=== PATIENT | male | born 1975 | race Caucasian/White ===

== ENCOUNTER 2018-11-21 21:21 | Emergency (ER) | payer OTHER, MEDICAID, SELFPAY ==
[2018-11-21 21:29] VITALS: BP 108/92; PULSE 85; RESP 14; TEMP 36.6; O2SAT 100; BMI 25.7
[2018-11-21 21:59] LABS: Prothrombin Time 11.3 SECONDS (10.1-12.7)
[2018-11-21 22:01] LABS: PTT Partial Thromboplastin Tim 28 SECONDS (26.4-36.2)
[2018-11-21 22:05] LABS: Alanine Aminotransferase 47 IU/L (21-72); Albumin 4.2 g/dL (3.5-5.0); Albumin Globulin Ratio 1.6 (1.0-2.8); Alkaline Phosphatase 53 U/L (38-126); Aspartate Aminotransferase 21 IU/L (17-59); BUN Creatinine Ratio 14.3 (6-22); Bilirubin Total 0.5 mg/dL (0.2-1.3); Blood Urea Nitrogen 10 mg/dL (9-20); Calcium 8.4 mg/dL (8.4-10.2); Carbon Dioxide 24 mmol/L (22-32); Chloride 108 mmol/L (98-107); Estimated Glomerular Filt Rate > 60.0 mL/min (>60); Globulin 2.7 g/dL (1.7-4.1); Glucose 121 mg/dL (70-100); HEMOLYSIS < 15 (0-50); Potassium 3.6 mmol/L (3.4-5.1); Sodium 142 mmol/L (137-145); Total Protein 6.9 g/dL (6.3-8.2)
[2018-11-21 22:11] VITALS: BP 131/68; PULSE 97; RESP 17; O2SAT 95
--- NOTE | 2018-11-21 22:48 | DI.US.S_ITS ---
PROCEDURE: US PERIPH VENOUS LOW EXTREM RT INDICATIONS: RLE pain, h/o dvt/pe TECHNIQUE: Real-time imaging, as well as color and pulse Doppler interrogation, were performed of the lower extremity deep veins from the inguinal ligament to the popliteal fossa. COMPARISON: None. FINDINGS: The deep veins are normally compressible, and free of intraluminal thrombus. Color and pulse Doppler demonstrate normal phasic intraluminal flow. There is normal augmentation response to distal compression maneuver. IMPRESSION: No evidence of deep vein thrombosis involving the right lower extremity. Dictated by: Ignacia Nolasco MD, PhD on 11/22/2018 at 7:11 Approved by: Ignacia Nolasco MD, PhD on 11/22/2018 at 7:11
[2018-11-21 23:34] VITALS: BP 122/70; PULSE 85; RESP 24; O2SAT 98
[2018-11-22 00:17] VITALS: BP 117/78; PULSE 90; RESP 16; O2SAT 97
--- NOTE | 2018-11-27 08:08 | ED.EXTPRO ---
HPI - Extremity Problem General Chief complaint: Extremity Problem,Nontraumatic Stated complaint: PAIN RT KNEE Time Seen by Provider: 11/21/18 21:48 Source: patient and family Mode of arrival: ambulatory Limitations: no limitations History of Present Illness HPI Narrative: Patient comes to emergency department complaining of right lower extremity pain. He states he has noticed an ache behind his knee and some mild swelling down around his ankle. The patient denies any distinct injury; he states his symptoms have been going on for about 3 days, and that he is concerned because he has a history of DVT and PE in the past. He states the clot was attributed at that time to a long trip, and that he is not aware of any other underlying clotting disorder being found. Patient states that this was a few years back, and that he has not had any issues with clotting since. The patient denies chest pain or shortness of breath. He denies any recent long trips. He is not a smoker. No other complaints at this time. He states the pain is about a 3/10, and walking makes it worse. Nothing improves. Related Data Previous Rx's Medication Instructions Recorded methimazole 5 mg tablet 5 mg PO QDAY #30 tab 05/27/18 diclofenac sodium 75 mg 75 mg PO BIDP PRN #60 ect 09/23/18 tablet,delayed release alprazolam 1 mg tablet 1 - 2 mg PO Q8HP PRN #90 tab 11/19/18 Allergies Allergy/AdvReac Type Severity Reaction Status Date / Time No Known Drug Allergies Allergy Verified 11/21/18 21:29 Review of Systems Constitutional Denies chills, Denies fever(s), Denies lethargy and Denies weakness Eyes Denies change in vision, Denies eye discharge, Denies irritation and Denies loss of vision ENT Ears, Nose, Mouth, and Throat: Denies change in voice, Denies neck pain and Denies sore throat Cardiovascular Denies chest pain, Denies irregular heart rhythm, Denies lightheadedness, Denies palpitations, Denies dyspnea, Denies dyspnea on exertion and Denies orthopnea Respiratory Denies cough, Denies dyspnea, Denies dyspnea on exertion and Denies wheezing Gastrointestinal Gastrointestinal: Denies abdominal pain, Denies change in bowel habits, Denies diarrhea, Denies nausea and Denies vomiting Genitourinary Denies hematuria, Denies flank pain, Denies urinary incontinence and Denies urinary urgency Musculoskeletal Denies neck pain Comments: Right lower extremity pain. Integumentary/Breasts Denies pruritus, Denies erythema, Denies rash and Denies wounds Neurologic Denies confusion, Denies loss of vision and Denies weakness Psychiatric Denies anxiety, Denies confusion, Denies depression, Denies homicidal ideation and Denies suicidal ideation Endocrine Denies palpitations Hematologic/Lymphatic Denies easy bruising Allergic/Immunologic Denies wheezing [facility] Medical History Pulmonary embolism (Acute) DVT (deep venous thrombosis) (Acute) Hyperthyroidism (Chronic 07/31/17) Generalized anxiety disorder (Chronic 04/24/16) Lower back pain (Chronic) History of pulmonary embolism (Inactive 04/24/16) Social History Smoking Status: Current every day smoker Exam Initial Vital Signs Initial Vital Signs: Vital Signs Temperature 97.8 F 11/21/18 21:29 Pulse Rate 85 11/21/18 21:29 Respiratory Rate 14 11/21/18 21:29 Blood Pressure 108/92 H 11/21/18 21:29 Pulse Oximetry 100 11/21/18 21:29 Const General: cooperative and well developed Nutritional Appearance: well nourished Orientation: alert, awake, oriented x3 and not confused [facility] Head: normocephalic and atraumatic Ears: external ears normal Nose: external nose normal and No nasal discharge Face and sinus: face symmetric and No dry mucous membranes Mouth: oral mucosae normal and moist mucous membranes Teeth and gingiva: dentition normal Eyes General: appearance normal, both eyes and all related structures Eyelids: eyelids normal Conjunctivae: conjunctivae normal Sclera: sclerae normal Pupils: PERRL EOM: EOM intact bilaterally Neck Neck: normal visual inspection, trachea midline, No lymphadenopathy, No midline deformity and No JVD Lymphatic: No lymphedema Chest Chest: normal inspection of the chest Resp Effort & Inspection: normal respiratory effort, able to speak in complete sentences, no respiratory distress and no use of accessory muscles Auscultation: clear to auscultation bilaterally, no rales, no rhonchi and no wheezes Cardio Rate: regular rate Rhythm: regular rhythm Heart Sounds: no click, no gallops, no murmurs and no rubs Pulses: normal peripheral pulses GI Inspection: non-distended Palpation: soft, no hepatosplenomegaly, No guarding, No pulsatile mass and No tender Auscultation: normal bowel sounds Back/Spine/Pelvis Back: No CVA tenderness Cervical Spine: cervical ROM normal and No pain with cervical ROM Thoracic/Lumbar Spine: thoracic and lumbar spine normal to inspection Skin General: no rashes or lesions noted, No jaundice and No petechiae Neuro General: alert, oriented x3, gait normal and no focal motor deficits Speech: speech normal Extrem General: full ROM, no pedal edema and calf tenderness (Patient has mild right calf tenderness and moderate tenderness posterior to his right knee. No deformity of the right knee.) Psych Appearance: well kempt Mental Status: mental status grossly normal Attitude: cooperative Thought Content: normal and suicidality Judgment: judgment good Course Course Narrative: Patient was worked up with an ultrasound of his right lower extremity, which was found to be negative. I am not certain what has caused his pain, but we have discussed that no emergent causes been found today. Patient has no signs of cellulitis; his ultrasound is negative and he does not have any chest symptoms. At this point, we have discussed symptomatic management home, as well as usual indications for return. MDM - Extremity (Nontraumatic) Medical Records Attestation: I reviewed the patient's medical records. Lab Data Attestation: I reviewed the patient's lab results. Result diagrams: 11/21/18 21:40 Lab Results 11/21/18 11/21/18 Range/Units 21:40 21:40 PT 11.3 (10.1-12.7) SECONDS INR 1.0 (0.9-1.3) APTT 28 (26.4-36.2) SECONDS Sodium 142 (137-145) mmol/L Potassium 3.6 (3.4-5.1) mmol/L Chloride 108 H (98-107) mmol/L Carbon Dioxide 24 (22-32) mmol/L BUN 10 (9-20) mg/dL Creatinine 0.70 (0.66-1.25) mg/dL Estimated GFR > 60.0 (>60) mL/min BUN/Creatinine Ratio 14.3 (6-22) Glucose 121 H (70-100) mg/dL Calcium 8.4 (8.4-10.2) mg/dL Total Bilirubin 0.5 (0.2-1.3) mg/dL AST 21 (17-59) IU/L ALT 47 (21-72) IU/L Alkaline Phosphatase 53 (38-126) U/L Total Protein 6.9 (6.3-8.2) g/dL Albumin 4.2 (3.5-5.0) g/dL Globulin 2.7 (1.7-4.1) g/dL Albumin/Globulin Ratio 1.6 (1.0-2.8) Imaging Data Venous US: Radiologist's impression: [address] [address] Ultrasound Report Signed Patient: Jaime Amaya [facility]#: [id number] : 1975Acct:[id number] Age/Sex: 42 / MDate of Service: 11/21/18 Loc: ED Accession Number: [id number] Procedure: US periph venous low extrem rt Ordering Provider: Jayleen Cardona MD PROCEDURE: US PERIPH VENOUS LOW EXTREM RT INDICATIONS: RLE pain, h/o dvt/pe TECHNIQUE: Real-time imaging, as well as color and pulse Doppler interrogation, were performed of the lower extremity deep veins from the inguinal ligament to the popliteal fossa. COMPARISON: None. FINDINGS: The deep veins are normally compressible, and free of intraluminal thrombus. Color and pulse Doppler demonstrate normal phasic intraluminal flow. There is normal augmentation response to distal compression maneuver. IMPRESSION: No evidence of deep vein thrombosis involving the right lower extremity. Dictated by: Ignacia Nolasco MD, PhD on 11/22/2018 at 7:11 Approved by: Ignacia Nolasco MD, PhD on 11/22/2018 at 7:11 Discharge Plan Departure Patient Disposition: Home Clinical Impression: Acute leg pain Discharge Date/Time: 11/22/18 00:30 Interventions: ED Discharge Assessment Last Done: 11/22/18 00:27 Instructions: DI for Leg Pain Activity Restrictions/Additional Instructions: Your ultrasound looks good! There is no sign of a blood clot at this time. Prescriptions: No Action methimazole 5 mg tablet 5 mg PO QDAY Qty: 30 RF: 3 diclofenac sodium 75 mg tablet,delayed release (DR/EC) 75 mg PO BIDP PRN (Reason: joint pain) Qty: 60 RF: 3 alprazolam 1 mg tablet 1 - 2 mg PO Q8HP PRN (Reason: anxiety) Qty: 90 RF: 0 Referrals: Baldemar Chirinos MD [Primary Care Provider] -
--- NOTE | 2018-11-27 08:20 | ED_ITS ---
HPI - Extremity Problem General Chief complaint: Extremity Problem,Nontraumatic Stated complaint: PAIN RT KNEE Time Seen by Provider: 11/21/18 21:48 Source: patient and family Mode of arrival: ambulatory Limitations: no limitations History of Present Illness HPI Narrative: Patient comes to emergency department complaining of right lower extremity pain. He states he has noticed an ache behind his knee and some mild swelling down around his ankle. The patient denies any distinct injury; he states his symptoms have been going on for about 3 days, and that he is concerned because he has a history of DVT and PE in the past. He states the clot was attributed at that time to a long trip, and that he is not aware of any other underlying clotting disorder being found. Patient states that this was a few years back, and that he has not had any issues with clotting since. The patient denies chest pain or shortness of breath. He denies any recent long trips. He is not a smoker. No other complaints at this time. He states the pain is about a 3/10, and walking makes it worse. Nothing improves. Related Data Previous Rx's Medication Instructions Recorded methimazole 5 mg tablet 5 mg PO QDAY #30 tab 05/27/18 diclofenac sodium 75 mg 75 mg PO BIDP PRN #60 ect 09/23/18 tablet,delayed release alprazolam 1 mg tablet 1 - 2 mg PO Q8HP PRN #90 tab 11/19/18 Allergies Allergy/AdvReac Type Severity Reaction Status Date / Time No Known Drug Allergies Allergy Verified 11/21/18 21:29 Review of Systems Constitutional Denies chills, Denies fever(s), Denies lethargy and Denies weakness Eyes Denies change in vision, Denies eye discharge, Denies irritation and Denies loss of vision ENT Ears, Nose, Mouth, and Throat: Denies change in voice, Denies neck pain and Denies sore throat Cardiovascular Denies chest pain, Denies irregular heart rhythm, Denies lightheadedness, Denies palpitations, Denies dyspnea, Denies dyspnea on exertion and Denies orthopnea Respiratory Denies cough, Denies dyspnea, Denies dyspnea on exertion and Denies wheezing Gastrointestinal Gastrointestinal: Denies abdominal pain, Denies change in bowel habits, Denies diarrhea, Denies nausea and Denies vomiting Genitourinary Denies hematuria, Denies flank pain, Denies urinary incontinence and Denies urinary urgency Musculoskeletal Denies neck pain Comments: Right lower extremity pain. Integumentary/Breasts Denies pruritus, Denies erythema, Denies rash and Denies wounds Neurologic Denies confusion, Denies loss of vision and Denies weakness Psychiatric Denies anxiety, Denies confusion, Denies depression, Denies homicidal ideation and Denies suicidal ideation Endocrine Denies palpitations Hematologic/Lymphatic Denies easy bruising Allergic/Immunologic Denies wheezing [facility] Medical History Pulmonary embolism (Acute) DVT (deep venous thrombosis) (Acute) Hyperthyroidism (Chronic 07/31/17) Generalized anxiety disorder (Chronic 04/24/16) Lower back pain (Chronic) History of pulmonary embolism (Inactive 04/24/16) Social History Smoking Status: Current every day smoker Exam Initial Vital Signs Initial Vital Signs: Vital Signs Temperature 97.8 F 11/21/18 21:29 Pulse Rate 85 11/21/18 21:29 Respiratory Rate 14 11/21/18 21:29 Blood Pressure 108/92 H 11/21/18 21:29 Pulse Oximetry 100 11/21/18 21:29 Const General: cooperative and well developed Nutritional Appearance: well nourished Orientation: alert, awake, oriented x3 and not confused [facility] Head: normocephalic and atraumatic Ears: external ears normal Nose: external nose normal and No nasal discharge Face and sinus: face symmetric and No dry mucous membranes Mouth: oral mucosae normal and moist mucous membranes Teeth and gingiva: dentition normal Eyes General: appearance normal, both eyes and all related structures Eyelids: eyelids normal Conjunctivae: conjunctivae normal Sclera: sclerae normal Pupils: PERRL EOM: EOM intact bilaterally Neck Neck: normal visual inspection, trachea midline, No lymphadenopathy, No midline deformity and No JVD Lymphatic: No lymphedema Chest Chest: normal inspection of the chest Resp Effort & Inspection: normal respiratory effort, able to speak in complete sentences, no respiratory distress and no use of accessory muscles Auscultation: clear to auscultation bilaterally, no rales, no rhonchi and no wheezes Cardio Rate: regular rate Rhythm: regular rhythm Heart Sounds: no click, no gallops, no murmurs and no rubs Pulses: normal peripheral pulses GI Inspection: non-distended Palpation: soft, no hepatosplenomegaly, No guarding, No pulsatile mass and No tender Auscultation: normal bowel sounds Back/Spine/Pelvis Back: No CVA tenderness Cervical Spine: cervical ROM normal and No pain with cervical ROM Thoracic/Lumbar Spine: thoracic and lumbar spine normal to inspection Skin General: no rashes or lesions noted, No jaundice and No petechiae Neuro General: alert, oriented x3, gait normal and no focal motor deficits Speech: speech normal Extrem General: full ROM, no pedal edema and calf tenderness (Patient has mild right calf tenderness and moderate tenderness posterior to his right knee. No deformity of the right knee.) Psych Appearance: well kempt Mental Status: mental status grossly normal Attitude: cooperative Thought Content: normal and suicidality Judgment: judgment good Course Course Narrative: Patient was worked up with an ultrasound of his right lower extremity, which was found to be negative. I am not certain what has caused his pain, but we have discussed that no emergent causes been found today. Patient has no signs of cellulitis; his ultrasound is negative and he does not have any chest symptoms. At this point, we have discussed symptomatic management home, as well as usual indications for return. MDM - Extremity (Nontraumatic) Medical Records Attestation: I reviewed the patient's medical records. Lab Data Attestation: I reviewed the patient's lab results. Result diagrams: 11/21/18 21:40 Lab Results 11/21/18 11/21/18 Range/Units 21:40 21:40 PT 11.3 (10.1-12.7) SECONDS INR 1.0 (0.9-1.3) APTT 28 (26.4-36.2) SECONDS Sodium 142 (137-145) mmol/L Potassium 3.6 (3.4-5.1) mmol/L Chloride 108 H (98-107) mmol/L Carbon Dioxide 24 (22-32) mmol/L BUN 10 (9-20) mg/dL Creatinine 0.70 (0.66-1.25) mg/dL Estimated GFR > 60.0 (>60) mL/min BUN/Creatinine Ratio 14.3 (6-22) Glucose 121 H (70-100) mg/dL Calcium 8.4 (8.4-10.2) mg/dL Total Bilirubin 0.5 (0.2-1.3) mg/dL AST 21 (17-59) IU/L ALT 47 (21-72) IU/L Alkaline Phosphatase 53 (38-126) U/L Total Protein 6.9 (6.3-8.2) g/dL Albumin 4.2 (3.5-5.0) g/dL Globulin 2.7 (1.7-4.1) g/dL Albumin/Globulin Ratio 1.6 (1.0-2.8) Imaging Data Venous US: Radiologist's impression: [address] [address] Ultrasound Report Signed Patient: Jaime Amaya [employer]#: [id number] : 1975Acct:[id number] Age/Sex: 42 / MDate of Service: 11/21/18 Loc: ED Accession Number: [id number] Procedure: US periph venous low extrem rt Ordering Provider: Jayleen Cardona MD PROCEDURE: US PERIPH VENOUS LOW EXTREM RT INDICATIONS: RLE pain, h/o dvt/pe TECHNIQUE: Real-time imaging, as well as color and pulse Doppler interrogation, were performed of the lower extremity deep veins from the inguinal ligament to the popliteal fossa. COMPARISON: None. FINDINGS: The deep veins are normally compressible, and free of intraluminal thrombus. Color and pulse Doppler demonstrate normal phasic intraluminal flow. There is normal augmentation response to distal compression maneuver. IMPRESSION: No evidence of deep vein thrombosis involving the right lower extremity. Dictated by: Ignacia Nolasco MD, PhD on 11/22/2018 at 7:11 Approved by: Ignacia Nolasco MD, PhD on 11/22/2018 at 7:11 Discharge Plan Departure Patient Disposition: Home Clinical Impression: Acute leg pain Discharge Date/Time: 11/22/18 00:30 Interventions: ED Discharge Assessment Last Done: 11/22/18 00:27 Instructions: DI for Leg Pain Activity Restrictions/Additional Instructions: Your ultrasound looks good! There is no sign of a blood clot at this time. Prescriptions: No Action methimazole 5 mg tablet 5 mg PO QDAY Qty: 30 RF: 3 diclofenac sodium 75 mg tablet,delayed release (DR/EC) 75 mg PO BIDP PRN (Reason: joint pain) Qty: 60 RF: 3 alprazolam 1 mg tablet 1 - 2 mg PO Q8HP PRN (Reason: anxiety) Qty: 90 RF: 0 Referrals: Baldemar Chirinos MD [Primary Care Provider] -
== END 2018-11-22 00:30 | disposition home or self-care (01) ==
PROVIDERS: Emergency Provider Emergency Medicine; Family Provider Internal Medicine; PCP Internal Medicine
DX: M25.561 Pain in right knee (principal)
CPT/HCPCS: 36591; 80053; 85610; 85730; 93005; 93010; 93041; 93971; 99283; 99285

== ENCOUNTER 2019-03-23 17:49 | Emergency (ER) | payer OTHER, MEDICAID, SELFPAY ==
[2019-03-23 17:53] VITALS: PULSE 97; RESP 18; TEMP 36.8; O2SAT 98
--- NOTE | 2019-03-23 17:55 | DI.RAD.S_ITS ---
PROCEDURE: XR RIBS LT MIN 3V W CXR1V INDICATIONS: struck lt side rib on fish tank TECHNIQUE: 3 views of the left ribs were acquired, along with a single view chest. COMPARISON: None. FINDINGS: Surgical changes and devices: None. Bones and chest wall: No fractures or dislocations. No suspicious bony lesions. Overlying soft tissues appear unremarkable. Lungs and pleura: No pleural effusions or pneumothorax. Lungs appear clear. Mediastinum: Mediastinal contours appear normal. Heart size is normal. IMPRESSION: No displaced rib fractures. Dictated by: Ignacia Nolasco MD, PhD on 03/23/2019 at 18:33 Approved by: Ignacia Nolasco MD, PhD on 03/23/2019 at 18:33
--- NOTE | 2019-03-23 18:26 | ED_ITS ---
HPI - Extremity Injury (Upper) General Chief Complaint: Extremity Injury, Upper Stated Complaint: thinks he broke a rib Time Seen by Provider: 03/23/19 18:25 Source: patient Mode of arrival: ambulatory Limitations: no limitations History of Present Illness HPI narrative: Patient is a 43-year-old male who is obviously intoxicated and smells of alcohol here with a family member who is not intoxicated for evaluation of left-sided chest wall pain. Patient states that prior to arrival he fell into a fish tank at home with bruising on the left side. Admits to taking benzodiazepines and also alcohol. No problems breathing. Related Data Previous Rx's Medication Instructions Recorded alprazolam 1 mg tablet 1 - 2 mg PO Q8HP PRN #90 tab 03/10/19 clonazepam 0.5 mg tablet 1 mg PO BID PRN #120 tab 03/21/19 meloxicam 15 mg tablet 15 mg PO DAILY #30 tab 03/21/19 methimazole 5 mg tablet 5 mg PO QDAY #90 tab 03/21/19 Allergies Allergy/AdvReac Type Severity Reaction Status Date / Time No Known Drug Allergies Allergy Verified 03/21/19 10:35 Review of Systems Review of Systems Patient refused to answer many of the review of systems questions Cardiovascular Denies dyspnea Respiratory Denies dyspnea Musculoskeletal Comments: Left-sided rib pain Integumentary/Breasts Comments: Bruise to the left chest wall [facility] Medical History Hyperthyroidism (Chronic 07/31/17) Generalized anxiety disorder (Chronic 04/24/16) Lower back pain (Chronic) History of pulmonary embolism (Inactive 04/24/16) Social History Smoking Status: Current every day smoker Social History Smoking Status: Current every day smoker Exam Initial Vital Signs Initial Vital Signs: Vital Signs Temperature 98.2 F 03/23/19 17:53 Pulse Rate 97 H 03/23/19 17:53 Respiratory Rate 18 03/23/19 17:53 Pulse Oximetry 98 03/23/19 17:53 Const General: cooperative (Minimally cooperative), well developed, well groomed and No acute distress Orientation: alert and awake Chest Other: Linear abrasion to the left lower chest wall Resp Effort & Inspection: normal respiratory effort Auscultation: clear to auscultation bilaterally Cardio Rate: regular rate Rhythm: regular rhythm Skin Other: Abrasion left-sided chest wall Neuro General: alert and awake Speech: speech normal Extrem General: capillary refill normal Course Orders Ordered: ED Orders 03/23/19 17:55 XR ribs LT min 3V w CXR1V Stat Vital Signs - 8 hr 03/23/19 17:53 Temperature 98.2 F Pulse Rate 97 H Respiratory Rate 18 Pulse Oximetry 98 MDM - Extremity Injury (Upper) Imaging Data Chest x-ray: Radiologist's impression: [address] [address] XRay Report Signed Patient: Jaime Amaya [facility]#: [id number] : 1975Acct:[id number] Age/Sex: 43 / MDate of Service: 03/23/19 Loc: ED Accession Number: [id number] Procedure: XR ribs LT min 3V w CXR1V Ordering Provider: Jennifer Silva- PROCEDURE: XR RIBS LT MIN 3V W CXR1V INDICATIONS: struck lt side rib on fish tank TECHNIQUE: 3 views of the left ribs were acquired, along with a single view chest. COMPARISON: None. FINDINGS: Surgical changes and devices: None. Bones and chest wall: No fractures or dislocations. No suspicious bony lesions. Overlying soft tissues appear unremarkable. Lungs and pleura: No pleural effusions or pneumothorax. Lungs appear clear. Mediastinum: Mediastinal contours appear normal. Heart size is normal. IMPRESSION: No displaced rib fractures. Dictated by: Ignacia Nolasco MD, PhD on 03/23/2019 at 18:33 Approved by: Ignacia Nolasco MD, PhD on 03/23/2019 at 18:33 [facility] Narrative Medical decision making narrative: Patient not in any respiratory distress. The x-ray showed no signs of a rib fracture. He does have an abrasion left-sided chest wall. The patient is obviously intoxicated however his family member who was with him is not intoxicated. Informed the patient that he has no rib fracture seen on the x-ray. We did discuss return precautions. Patient stated that he needed something stronger than Motrin or Tylenol however refused to give this to him secondary to his intoxication. We did offer Tylenol Motrin here but the patient refused. He was given return precautions and follow-up instructions. Patient seen upset about this plan Discharge Plan Departure Patient Disposition: Home Clinical Impression: Contusion of rib on left side Qualifiers: Encounter type: initial encounter Qualified Code(s): S20.212A - Contusion of left front wall of thorax, initial encounter Instructions: DI for Rib Contusion Activity Restrictions/Additional Instructions: You can take Tylenol and/or ibuprofen for any discomfort. Contact your primary doctor for follow-up. No driving for the next 24 hours or in the future if you partake in intoxicating substances. Return to the emergency department for any new or worsening symptoms Prescriptions: No Action alprazolam 1 mg tablet 1 - 2 mg PO Q8HP PRN (Reason: anxiety) Qty: 90 RF: 0 meloxicam 15 mg tablet 15 mg PO DAILY Qty: 30 RF: 3 clonazepam 0.5 mg tablet 1 mg PO BID PRN (Reason: anxiety) Qty: 120 RF: 0 methimazole 5 mg tablet 5 mg PO QDAY Qty: 90 RF: 3 Referrals: Baldemar Chirinos MD [Primary Care Provider] -
--- NOTE | 2019-03-23 18:30 | PC.NURSE ---
pt here with his s.o., she states he was drinking today and fell, striking his left side ribs on a fish tank. She contacted EMS, who came to assess pt and cleared him for POV transport. On exam pt is difficult to redirect, smells of ETOH, slurred speech, answering very few questions, states quit asking me fucking questions. c/o lt side rib pain, splinting, no apparent resp distress, denies head/neck pain, declines ice pack, ambulatory with s.o.
== END 2019-03-23 18:53 | disposition home or self-care (01) ==
PROVIDERS: Emergency Provider Emergency Medicine; PCP Internal Medicine
DX: S20.212A Contusion of left front wall of thorax, initial encounter (principal)
CPT/HCPCS: 71101; 99282

== ENCOUNTER 2019-03-24 11:20 | Inpatient (IN) | payer OTHER, MEDICAID, SELFPAY ==
[2019-03-24] VITALS (16 sets, daily range): BP systolic 103–153; BP diastolic 51–97; PULSE 75–138; RESP 15–32; TEMP 36.7–36.9; O2SAT 97–100; BMI 25.0
[2019-03-24] MEDS: SODIUM CHLORIDE 0.9% 1,000 ML 1000 ML IV (12:00)
[2019-03-24 12:19] LABS: Add Manual Diff / Slide Review NO; Basophils Absolute Auto 100 /uL (0-100); Basophils Percent Auto 0.4 % (0-2); Eosinophils Absolute Auto 0 /uL (0-450); Hematocrit 46.1 % (41-53); Hemoglobin 15.5 g/dL (13.5-17.5); Lymphocytes Absolute Auto 1900 /uL (1100-4500); Lymphocytes Percent Auto 13.1 % (25-40); Mean Corpuscular HGB Conc 33.6 % (30-36); Mean Corpuscular Hemoglobin 28.9 PG (26-34); Mean Corpuscular Volume 85.9 fL (80-100); Monocytes Absolute Auto 1100 /uL (0-900); Monocytes Percent Auto 7.9 % (3-14); Neutrophils Absolute Auto 11200 /uL (1500-7000); Neutrophils Percent Auto 78.6 % (50-75); Platelet Count 322 X10^3/uL (150-400); Red Blood Cell Count 5.36 X10^6/uL (4.5-5.9); Red Cell Distribution Width 13.8 % (11.6-14.8); White Blood Cell Count 14.3 X10^3/uL (4.5-11.0)
[2019-03-24 12:20] LABS: Alanine Aminotransferase 23 IU/L (21-72); Albumin 4.7 g/dL (3.5-5.0); Albumin Globulin Ratio 1.6 (1.0-2.8); Alkaline Phosphatase 70 U/L (38-126); Aspartate Aminotransferase 26 IU/L (17-59); Bilirubin Total 1.8 mg/dL (0.2-1.3); Blood Urea Nitrogen 21 mg/dL (9-20); Calcium 8.8 mg/dL (8.4-10.2); Carbon Dioxide 24 mmol/L (22-32); Chloride 101 mmol/L (98-107); Estimated Glomerular Filt Rate > 60.0 mL/min (>60); Ethanol (ETOH) < 10 mg/dL; Globulin 2.9 g/dL (1.7-4.1); Glucose 189 mg/dL (70-100); HEMOLYSIS < 15 (0-50); Lipase 32 U/L (23-300); Sodium 139 mmol/L (137-145); Total Protein 7.6 g/dL (6.3-8.2)
--- NOTE | 2019-03-24 12:29 | ED.TRAUMA ---
HPI - Trauma General Chief Complaint: Trauma Stated Complaint: FELL DOWN STEPS Time Seen by Provider: 03/24/19 12:17 Source: patient and old records reviewed Mode of arrival: ambulatory Limitations: no limitations History of Present Illness HPI narrative: This is a 43-year-old male comes to the emergency department with complaint of left-sided chest pain but also some abdominal pain. Patient states that last night he was drinking alcohol. He fell down the stairs and tumbled down probably half flight of stairs into 100 gal fish tank. He states that the tank was not injured. He was actually seen last night, he was discharged home he did try a dose of his clonazepam at home but was quite uncomfortable. Patient states his pain is particularly on the left chest but he is starting to feel pain all over. He does not take any aspirin or blood thinners. Patient denies any neck or vertebral column pain. He states he has not had any more alcohol since then. He denies a no vomiting, no nausea, no issues with bowel movements or urination. Patient has not noticed any wounds or bruising. Patient states that he shared a 5th of alcohol with for other individuals. States this is not normal for him and he does not normally drink alcohol. He does smoke tobacco. He has had marijuana once a couple weeks ago he denies any other illicit. He does have a history of pulmonary embolism that they think is from travel. Patient also has anxiety. He denies any surgery. He denies any allergies. Related Data Home Medications Medication Instructions Recorded Confirmed methimazole 5 mg PO DAILY 03/24/19 03/24/19 Previous Rx's Medication Instructions Recorded alprazolam 1 mg tablet 1 - 2 mg PO Q8HP PRN #90 tab 03/10/19 clonazepam 0.5 mg tablet 1 mg PO BID PRN #120 tab 03/21/19 meloxicam 15 mg tablet 15 mg PO DAILY #30 tab 03/21/19 Allergies Allergy/AdvReac Type Severity Reaction Status Date / Time No Known Drug Allergies Allergy Verified 03/24/19 11:33 Review of Systems Review of Systems ROS Unobtainable: All systems reviewed & are unremarkable except as noted in HPI and below Constitutional Reports body ache(s) (Hurts all over), Denies chills, Denies fever(s), Denies lethargy and Denies weakness Cardiovascular Reports chest pain, Reports chest pain with activity (With movement), Denies syncope, Denies radiating jaw, neck or arm pain, Denies palpitations, Denies dyspnea and Denies dyspnea on exertion Respiratory Denies chest congestion, Denies cough, Denies hemoptysis, Reports pain on inspiration, Reports pain with cough, Denies dyspnea, Denies dyspnea on exertion and Denies wheezing Gastrointestinal Gastrointestinal: Denies abdominal pain, Denies change in bowel habits, Denies constipation, Denies diarrhea, Denies nausea and Denies vomiting Genitourinary Denies hematuria, Denies flank pain, Denies urinary incontinence and Denies urinary urgency Musculoskeletal Reports back pain (Hurts all over) and Reports myalgias (Hurt all over) Integumentary/Breasts Denies unusual bruising and Denies wounds Neurologic Denies syncope and Denies weakness Endocrine Denies palpitations Allergic/Immunologic Denies wheezing PFSH Medical History Hyperthyroidism (Chronic 07/31/17) Generalized anxiety disorder (Chronic 04/24/16) Lower back pain (Chronic) History of pulmonary embolism (Inactive 04/24/16) Social History Smoking Status: Current every day smoker Social History household members: significant other Smoking Status: Current every day smoker alcohol intake: current Exam Narrative Exam Narrative: GEN: Patient appears in moderate distress. HEAD: No evidence of trauma, no raccoon/Chua sign. NECK: Nontender, painless range of motion, trachea midline Negative for Nexus criteria, there is no line tenderness, distracting injury, altered mental status, neuro deficit, recent EtOH. EYES: PERRLA, EOMI ENT: External inspection normal, trachea is midline, TM's are normal no hemotypanum, Nares are clear, no septal hematoma, no dental or oral injury, airway is normal and with normal occlusion, No bony tenderness RESP: Chest is mildly tender to palpation and has symmetric movement, no ecchymosis, breath sounds are normal no crackles, wheezes or rales, patient has pain with palpation on the left side of the chest. CVS: Heart sounds are normal, no murmur noted, No JVD. S1, S2. Patient is tachycardic. ABG/GI: Tenderness generalized but greater on the left upper quadrant, soft, normal bowel sounds, no distention, no organomegaly, pelvic rock is negative NEURO: Oriented AOx3, neuro is grossly intact, sensation and motor is normal all 4 extremities moving, cranial nerves II through XII are intact, GCS is 15 PSYCH: Normal mood and affect SKIN: Intact, warm and dry, no crepitus and without decubitus, no ecchymosis noted on chest, back, flank or abdomen. BACK: No CVA tenderness, no vertebral tenderness, no step-off's, no crepitus EXT: Atraumatic, hips are nontender, no pedal edema, normal color and temperature, normal range of motion of extremities with normal tendon exam, 2+ pulses in all four extremities Initial Vital Signs Initial Vital Signs: Vital Signs Temperature 98.1 F 03/24/19 11:28 Pulse Rate 138 H 03/24/19 11:28 Respiratory Rate 18 03/24/19 11:28 Blood Pressure 141/97 H 03/24/19 11:28 Pulse Oximetry 100 03/24/19 11:28 Course Orders Ordered: ED Orders 03/24/19 11:36 EKG-12 Lead Stat 03/24/19 12:00 Complete Blood Count AUTO DIFF Stat Comprehensive Metabolic Panel Stat Ethanol (ETOH) Stat Ethanol (ETOH) Stat Lipase Stat Packed Cells Stat Thyroid Stimulating Hormone Stat Type and Screen Stat 03/24/19 13:07 CT chest abd pel w con Stat 03/24/19 17:14 Hematocrit Q4H 03/24/19 17:20 MRSA PCR Urgent 03/24/19 19:01 Hematocrit Q4H 03/24/19 23:01 Hematocrit Q4H 03/25/19 05:00 Basic Metabolic Panel Routine Complete Blood Count AUTO DIFF Routine Magnesium Routine Acetaminophen (Tylenol) 975 mg PO Q6HR [facility] Last Admin: 03/24/19 17:11 Dose: 975 mg Clonazepam (Klonopin) 1 mg PO BID [facility] Last Admin: 03/24/19 16:18 Dose: 1 mg Dextrose (D50w) 25 gm IV PRN PRN PRN Reason: Hypoglycemia Gabapentin (Neurontin) 300 mg PO TID [facility] Last Admin: 03/24/19 17:11 Dose: 300 mg Lactated Ringer's (Lactated Ringers) 1,000 mls @ 100 mls/hr IV CONT [facility] Last Admin: 03/24/19 16:02 Dose: Not Given Insulin Aspart (Novolog Flexpen) 0 unit SUBCUT Q6H [facility]; Protocol Last Admin: 03/24/19 18:10 Dose: Not Given Methocarbamol (Robaxin) 500 mg PO QID [facility] Last Admin: 03/24/19 17:15 Dose: Not Given Admin: 03/24/19 17:11 Dose: 500 mg Morphine Sulfate (Morphine) 4 mg IV Q2HR PRN PRN Reason: Pain, Severe (7-10) Last Admin: 03/24/19 17:15 Dose: 4 mg Morphine Sulfate (Morphine) 2 mg IV Q2HR PRN PRN Reason: Pain, Moderate (4-6) Polyethylene Glycol (Miralax) 17 gm PO BID [facility] Quetiapine Fumarate (Seroquel) 25 mg PO BEDTIME [facility] Discontinued Medications Sodium Chloride (Normal Saline 0.9%) 1,000 mls @ 1,000 mls/hr IV BOLUS ONE Stop: 03/24/19 12:39 Last Infusion: 03/24/19 16:35 Dose: 0 mls/hr Admin: 03/24/19 12:00 Dose: 1,000 mls/hr Lactated Ringer's (Lactated Ringers) 1,000 mls @ 500 mls/hr IV BOLUS ONE Stop: 03/24/19 15:59 Last Admin: 03/24/19 15:15 Dose: 500 mls/hr Insulin Aspart (Novolog Flexpen) 0 unit SUBCUT ACHS [facility]; Protocol Last Admin: 03/24/19 17:09 Dose: Not Given Morphine Sulfate (Morphine) 4 mg IM NOW ONE Stop: 03/24/19 12:33 Last Admin: 03/24/19 12:40 Dose: 4 mg Morphine Sulfate (Morphine) 4 mg IV NOW ONE Stop: 03/24/19 14:01 Last Admin: 03/24/19 15:13 Dose: 4 mg Vital Signs - 8 hr 03/24/19 11:28 03/24/19 12:07 03/24/19 12:12 Temperature 98.1 F Pulse Rate 138 H 115 H 107 H Respiratory Rate 18 32 H 24 Blood Pressure 141/97 H 145/90 H Blood Pressure [Right Arm] 145/90 H Pulse Oximetry 100 97 97 03/24/19 12:30 03/24/19 13:00 03/24/19 13:30 Temperature Pulse Rate 100 H 102 H 101 H Respiratory Rate 27 H 24 24 Blood Pressure Blood Pressure [Right Arm] 137/86 121/86 146/77 H Pulse Oximetry 97 97 100 03/24/19 14:27 03/24/19 14:30 03/24/19 16:10 Temperature 98.4 F Pulse Rate 104 H 106 H 96 H Respiratory Rate 15 16 24 Blood Pressure 145/93 H Blood Pressure [Right Arm] 146/84 H 144/88 H Pulse Oximetry 100 100 99 03/24/19 17:00 03/24/19 18:00 Temperature Pulse Rate 97 H 95 H Respiratory Rate Blood Pressure 139/89 153/81 H Blood Pressure [Right Arm] Pulse Oximetry MDM - Trauma Lab Data Attestation: I reviewed the patient's lab results. Result diagrams: 03/24/19 17:14 03/24/19 12:00 Lab Results 03/24/19 03/24/19 03/24/19 Range/Units 12:00 12:00 12:00 WBC 14.3 H (4.5-11.0) X10^3/uL RBC 5.36 (4.5-5.9) X10^6/uL Hgb 15.5 (13.5-17.5) g/dL Hct 46.1 (41-53) % MCV 85.9 (80-100) fL MCH 28.9 (26-34) PG MCHC 33.6 (30-36) % RDW 13.8 (11.6-14.8) % Plt Count 322 (150-400) X10^3/uL Neut % (Auto) 78.6 H (50-75) % Lymph % (Auto) 13.1 L (25-40) % [place] % (Auto) 7.9 (3-14) % Eos % (Auto) 0.0 L (2-4) % Baso % (Auto) 0.4 (0-2) % Neut # (Auto) 37814 H (1871-0350) /uL Lymph # (Auto) 1900 (3908-9733) /uL [place] # (Auto) 1100 H (0-900) /uL Eos # (Auto) 0 (0-450) /uL Baso # (Auto) 100 (0-100) /uL Sodium 139 (137-145) mmol/L Potassium 4.0 (3.4-5.1) mmol/L Chloride 101 (98-107) mmol/L Carbon Dioxide 24 (22-32) mmol/L BUN 21 H (9-20) mg/dL Creatinine 1.00 (0.66-1.25) mg/dL Estimated GFR > 60.0 (>60) mL/min BUN/Creatinine Ratio 21.0 (6-22) Glucose 189 H (70-100) mg/dL Calcium 8.8 (8.4-10.2) mg/dL Total Bilirubin 1.8 H (0.2-1.3) mg/dL AST 26 (17-59) IU/L ALT 23 (21-72) IU/L Alkaline Phosphatase 70 (38-126) U/L Total Protein 7.6 (6.3-8.2) g/dL Albumin 4.7 (3.5-5.0) g/dL Globulin 2.9 (1.7-4.1) g/dL Albumin/Globulin Ratio 1.6 (1.0-2.8) Lipase 32 (23-300) U/L TSH (0.47-4.68) uIU/mL Ethyl Alcohol < 10 mg/dL Blood Type A Positive Antibody Screen Negative Crossmatch See Detail 03/24/19 03/24/19 03/24/19 Range/Units 12:00 12:00 17:14 WBC (4.5-11.0) X10^3/uL RBC (4.5-5.9) X10^6/uL Hgb (13.5-17.5) g/dL Hct 36.8 L (41-53) % MCV (80-100) fL MCH (26-34) PG MCHC (30-36) % RDW (11.6-14.8) % Plt Count (150-400) X10^3/uL Neut % (Auto) (50-75) % Lymph % (Auto) (25-40) % [place] % (Auto) (3-14) % Eos % (Auto) (2-4) % Baso % (Auto) (0-2) % Neut # (Auto) (5494-6004) /uL Lymph # (Auto) (4438-0158) /uL [place] # (Auto) (0-900) /uL Eos # (Auto) (0-450) /uL Baso # (Auto) (0-100) /uL Sodium (137-145) mmol/L Potassium (3.4-5.1) mmol/L Chloride (98-107) mmol/L Carbon Dioxide (22-32) mmol/L BUN (9-20) mg/dL Creatinine (0.66-1.25) mg/dL Estimated GFR (>60) mL/min BUN/Creatinine Ratio (6-22) Glucose (70-100) mg/dL Calcium (8.4-10.2) mg/dL Total Bilirubin (0.2-1.3) mg/dL AST (17-59) IU/L ALT (21-72) IU/L Alkaline Phosphatase (38-126) U/L Total Protein (6.3-8.2) g/dL Albumin (3.5-5.0) g/dL Globulin (1.7-4.1) g/dL Albumin/Globulin Ratio (1.0-2.8) Lipase (23-300) U/L TSH < 0.02 L (0.47-4.68) uIU/mL Ethyl Alcohol < 10 mg/dL Blood Type Antibody Screen Crossmatch Point of Care Testing Glucose POC [address] chest/abd/pelvis: Radiologist's impression: [facility] Diagn[facility] DATE TYPE STATUS AUTHOR Hx 03/24/19 13:07 Heber Patricio 03/23/19 17:55 Ignacia Nolasco 11/21/18 22:48 Ignacia Nolasco Jerry M 43, [id number] ADM IN, ICU 105 -1 165.1cm 68.2kg BMI: 25.0kg/m? Search Chart ONSET 07/31/17 04/24/16 04/24/16 Today 18:00 Jaime Amaya 43 M [address] [address] [address] Scan Report Signed Patient: MoniqueJaime MMR#: [id number] : 1975Acct:[id number] Age/Sex: 43 / MDate of Service: 03/24/19 Loc: ED Accession Number: [id number] Procedure: CT chest abd pel w con Ordering Provider: Jennifer Beach D.O. PROCEDURE: CT CHEST ABD PEL W CON INDICATIONS: fall down stairs, hit chest onto fish tank, painful TECHNIQUE: After the administration of intravenous contrast, 5 mm thick sections acquired from the lung apices to the symphysis. 2.5 mm thick coronal and sagittal reformats were acquired. Additional 7 mm thick coronal maximum intensity projection (MIP) reformats acquired through the lungs. Optional 10-minute delayed imaging may be performed from the kidneys to the bladder. For radiation dose reduction, the following was used: automated exposure control, adjustment of mA and/or kV according to patient size. COMPARISON: [facility], CT, C-SPINE WITHOUT CONTRAST, 04/21/2017, 16:13. FINDINGS: Image quality: Excellent. CHEST: Lungs: No definite pulmonary contusions or lacerations. There is mild dependent atelectasis bilaterally and linear areas of mild atelectasis or scarring laterally in the right lung base. No pneumothorax or hemothorax. Central and peripheral airways appear patent and normal in caliber. Mediastinum: No mediastinal hematomas. There is a small amount of indistinct soft tissue within the anterior mediastinum, decreased from the prior study, compatible with residual thymic tissue. Heart size is normal. No pericardial effusion. Thoracic aorta and pulmonary arteries demonstrate normal size and enhancement. No mediastinal or hilar adenopathy. Esophagus is normal in caliber. No hiatal hernia. Chest wall: No rib fractures. No subcutaneous emphysema. No axillary or supraclavicular adenopathy. Thyroid gland demonstrates no discrete nodules. ABDOMEN: Solid organs: There is a full-thickness laceration of the spleen which appears to extend to the hilar vessels. There is a nonenhancing peripheral portion of the inferior spleen compatible with devascularization involving approximately 20-25%. An associated perisplenic hematoma is demonstrated with a few small collections adjacent to the hilum. No definite evidence of active arterial extravasation. There is perihepatic blood product likely related to the splenic laceration. This appears lower in density compared to the left upper quadrant free fluid. No discrete hepatic laceration is identified. There is focal fatty infiltration in the anterior left hepatic lobe along the falciform ligament. The gallbladder appears within normal limits without calcified gallstones. There is internal relative hyperattenuation layering in the gallbladder suggestive of biliary sludge. Biliary system is non-dilated. Pancreas enhances normally, without transection. Spleen is normal in size and enhancement, without lacerations. No adrenal hematomas. Both kidneys enhance normally, without hydronephrosis or lacerations. Peritoneum and bowel: There is a moderate amount of hemoperitoneum within the abdomen and pelvis. No free air. Small and large bowel loops demonstrate normal wall thickness and caliber. Nodes and vessels: No retroperitoneal or mesenteric adenopathy. Aorta and inferior vena cava are normal in size and enhancement. Miscellaneous: No ventral hernias. PELVIS: Genitourinary: Bladder wall thickness is normal. Miscellaneous: No inguinal hernias or adenopathy. Bones: Pelvic ring and hip joints appear intact. No vertebral compression fractures. IMPRESSION: 1. Findings compatible with a grade 4 splenic laceration extending to the hilar vessels with associated devascularization of the inferior spleen. There is associated perisplenic hematoma as well as moderate hemoperitoneum. 2. Perihepatic blood product likely related to the splenic laceration. No discrete hepatic laceration identified. 3. No fractures identified. Findings discussed with Dr. Beach on 03/24/19 at 1:44 PM. Dictated by: Heber Patricio M.D. on 03/24/2019 at 13:38 Approved by: Heber Patricio M.D. on 03/24/2019 at 13:52 ECG Data Attestation: I personally reviewed and interpreted this ECG as follows: Interpretation: Sinus tachycardia with a rate of 116 P are 141 QRS of 77 and QTC of 379. No ST elevation or depression. MDM Narrative Medical decision making narrative: Patient comes in with fall down stairs last night, states he was intoxicated he was seen but per patient himself was a difficult patient and made his evaluation difficult. He states that he went home he has continued to have significant pain and returned, imaging shows a grade 4 splenic laceration. Surgery was contacted and Dr. Brewster evaluated the patient in the department. After 1 L of fluids patient's heart rate had improved to 107, he has not been hypotensive. He was given some morphine for pain which was helpful. Plan for admission, bedrest, NPO, if patient has any changes or concerning signs plan for OR for splenectomy. Patient initially was planning to leave the department because he wanted to go to his daughter's graduation, we had a very involved conversation discussing that that would be very dangers and he had a high potential for if he left with this type of injury that he has and patient did agree to stay. Discharge Plan Departure Patient Disposition: Admitted As Inpatient Clinical Impression: Spleen laceration Discharge Date/Time: 03/24/19 16:06 Interventions: ED Discharge Assessment Last Done: 03/24/19 16:06 Admit Date/Time: 03/24/19 14:14 Admit Provider: Evgeny Brewster
--- NOTE | 2019-03-24 12:32 | ED_ITS ---
HPI - Trauma General Chief Complaint: Trauma Stated Complaint: FELL DOWN STEPS Time Seen by Provider: 03/24/19 12:17 Source: patient and old records reviewed Mode of arrival: ambulatory Limitations: no limitations History of Present Illness HPI narrative: This is a 43-year-old male comes to the emergency department with complaint of left-sided chest pain but also some abdominal pain. Patient states that last night he was drinking alcohol. He fell down the stairs and tumbled down probably half flight of stairs into 100 gal fish tank. He states that the tank was not injured. He was actually seen last night, he was discharged home he did try a dose of his clonazepam at home but was quite uncomfortable. Leeann mccrary states his pain is particularly on the left chest but he is starting to feel pain all over. He does not take any aspirin or blood thinners. Patient denies any neck or vertebral column pain. He states he has not had any more alcohol since then. He denies a no vomiting, no nausea, no issues with bowel movements or urination. Patient has not noticed any wounds or bruising. Patient states that he shared a 5th of alcohol with for other individuals. States this is not normal for him and he does not normally drink alcohol. He does smoke tobacco. He has had marijuana once a couple weeks ago he denies any other illicit. He does have a history of pulmonary embolism that they think is from travel. Patient also has anxiety. He denies any surgery. He denies any allergies. Related Data Home Medications Medication Instructions Recorded Confirmed methimazole 5 mg PO DAILY 03/24/19 03/24/19 Previous Rx's Medication Instructions Recorded alprazolam 1 mg tablet 1 - 2 mg PO Q8HP PRN #90 tab 03/10/19 clonazepam 0.5 mg tablet 1 mg PO BID PRN #120 tab 03/21/19 meloxicam 15 mg tablet 15 mg PO DAILY #30 tab 03/21/19 Allergies Allergy/AdvReac Type Severity Reaction Status Date / Time No Known Drug Allergies Allergy Verified 03/24/19 11:33 Review of Systems Review of Systems ROS Unobtainable: All systems reviewed & are unremarkable except as noted in HPI and below Constitutional Reports body ache(s) (Hurts all over), Denies chills, Denies fever(s), Denies lethargy and Denies weakness Cardiovascular Reports chest pain, Reports chest pain with activity (With movement), Denies syncope, Denies radiating jaw, neck or arm pain, Denies palpitations, Denies dyspnea and Denies dyspnea on exertion Respiratory Denies chest congestion, Denies cough, Denies hemoptysis, Reports pain on inspiration, Reports pain with cough, Denies dyspnea, Denies dyspnea on exertion and Denies wheezing Gastrointestinal Gastrointestinal: Denies abdominal pain, Denies change in bowel habits, Denies constipation, Denies diarrhea, Denies nausea and Denies vomiting Genitourinary Denies hematuria, Denies flank pain, Denies urinary incontinence and Denies urinary urgency Musculoskeletal Reports back pain (Hurts all over) and Reports myalgias (Hurt all over) Integumentary/Breasts Denies unusual bruising and Denies wounds Neurologic Denies syncope and Denies weakness Endocrine Denies palpitations Allergic/Immunologic Denies wheezing PFSH Medical History Hyperthyroidism (Chronic 07/31/17) Generalized anxiety disorder (Chronic 04/24/16) Lower back pain (Chronic) History of pulmonary embolism (Inactive 04/24/16) Social History Smoking Status: Current every day smoker Social History household members: significant other Smoking Status: Current every day smoker alcohol intake: current Exam Narrative Exam Narrative: GEN: Patient appears in moderate distress. HEAD: No evidence of trauma, no raccoon/Chua sign. NECK: Nontender, painless range of motion, trachea midline Negative for Nexus criteria, there is no line tenderness, distracting injury, altered mental status, neuro deficit, recent EtOH. EYES: PERRLA, EOMI ENT: External inspection normal, trachea is midline, TM's are normal no hemotypanum, Nares are clear, no septal hematoma, no dental or oral injury, ai rway is normal and with normal occlusion, No bony tenderness RESP: Chest is mildly tender to palpation and has symmetric movement, no ecchymosis, breath sounds are normal no crackles, wheezes or rales, patient has pain with palpation on the left side of the chest. CVS: Heart sounds are normal, no murmur noted, No JVD. S1, S2. Patient is tachycardic. ABG/GI: Tenderness generalized but greater on the left upper quadrant, soft, normal bowel sounds, no distention, no organomegaly, pelvic rock is negative NEURO: Oriented AOx3, neuro is grossly intact, sensation and motor is normal all 4 extremities moving, cranial nerves II through XII are intact, GCS is 15 PSYCH: Normal mood and affect SKIN: Intact, warm and dry, no crepitus and without decubitus, no ecchymosis noted on chest, back, flank or abdomen. BACK: No CVA tenderness, no vertebral tenderness, no step-off's, no crepitus EXT: Atraumatic, hips are nontender, no pedal edema, normal color and temperature, normal range of motion of extremities with normal tendon exam, 2+ pulses in all four extremities Initial Vital Signs Initial Vital Signs: Vital Signs Temperature 98.1 F 03/24/19 11:28 Pulse Rate 138 H 03/24/19 11:28 Respiratory Rate 18 03/24/19 11:28 Blood Pressure 141/97 H 03/24/19 11:28 Pulse Oximetry 100 03/24/19 11:28 Course Orders Ordered: ED Orders 03/24/19 11:36 EKG-12 Lead Stat 03/24/19 12:00 Complete Blood Count AUTO DIFF Stat Comprehensive Metabolic Panel Stat Ethanol (ETOH) Stat Ethanol (ETOH) Stat Lipase Stat Packed Cells Stat Thyroid Stimulating Hormone Stat Type and Screen Stat 03/24/19 13:07 CT chest abd pel w con Stat 03/24/19 17:14 Hematocrit Q4H 03/24/19 17:20 MRSA PCR Urgent 03/24/19 19:01 Hematocrit Q4H 03/24/19 23:01 Hematocrit Q4H 03/25/19 05:00 Basic Metabolic Panel Routine Complete Blood Count AUTO DIFF Routine Magnesium Routine Acetaminophen (Tylenol) 975 mg PO Q6HR [facility] Last Admin: 03/24/19 17:11 Dose: 975 mg Clonazepam (Klonopin) 1 mg PO BID [facility] Last Admin: 03/24/19 16:18 Dose: 1 mg Dextrose (D50w) 25 gm IV PRN PRN PRN Reason: Hypoglycemia Gabapentin (Neurontin) 300 mg PO TID [facility] Last Admin: 03/24/19 17:11 Dose: 300 mg Lactated Ringer's (Lactated Ringers) 1,000 mls @ 100 mls/hr IV CONT [facility] Last Admin: 03/24/19 16:02 Dose: Not Given Insulin Aspart (Novolog Flexpen) 0 unit SUBCUT Q6H [facility]; Protocol Last Admin: 03/24/19 18:10 Dose: Not Given Methocarbamol (Robaxin) 500 mg PO QID [facility] Last Admin: 03/24/19 17:15 Dose: Not Given Admin: 03/24/19 17:11 Dose: 500 mg Morphine Sulfate (Morphine) 4 mg IV Q2HR PRN PRN Reason: Pain, Severe (7-10) Last Admin: 03/24/19 17:15 Dose: 4 mg Morphine Sulfate (Morphine) 2 mg IV Q2HR PRN PRN Reason: Pain, Moderate (4-6) Polyethylene Glycol (Miralax) 17 gm PO BID [facility] Quetiapine Fumarate (Seroquel) 25 mg PO BEDTIME [facility] Discontinued Medications Sodium Chloride (Normal Saline 0.9%) 1,000 mls @ 1,000 mls/hr IV BOLUS ONE Stop: 03/24/19 12:39 Last Infusion: 03/24/19 16:35 Dose: 0 mls/hr Admin: 03/24/19 12:00 Dose: 1,000 mls/hr Lactated Ringer's (Lactated Ringers) 1,000 mls @ 500 mls/hr IV BOLUS ONE Stop: 03/24/19 15:59 Last Admin: 03/24/19 15:15 Dose: 500 mls/hr Insulin Aspart (Novolog Flexpen) 0 unit SUBCUT ACHS [facility]; Protocol Last Admin: 03/24/19 17:09 Dose: Not Given Morphine Sulfate (Morphine) 4 mg IM NOW ONE Stop: 03/24/19 12:33 Last Admin: 03/24/19 12:40 Dose: 4 mg Morphine Sulfate (Morphine) 4 mg IV NOW ONE Stop: 03/24/19 14:01 Last Admin: 03/24/19 15:13 Dose: 4 mg Vital Signs - 8 hr 03/24/19 11:28 03/24/19 12:07 03/24/19 12:12 Temperature 98.1 F Pulse Rate 138 H 115 H 107 H Respiratory Rate 18 32 H 24 Blood Pressure 141/97 H 145/90 H Blood Pressure [Right Arm] 145/90 H Pulse Oximetry 100 97 97 05/20/19 12:30 03/24/19 13:00 03/24/19 13:30 Temperature Pulse Rate 100 H 102 H 101 H Respiratory Rate 27 H 24 24 Blood Pressure Blood Pressure [Right Arm] 137/86 121/86 146/77 H Pulse Oximetry 97 97 100 03/24/19 14:27 03/24/19 14:30 03/24/19 16:10 Temperature 98.4 F Pulse Rate 104 H 106 H 96 H Respiratory Rate 15 16 24 Blood Pressure 145/93 H Blood Pressure [Right Arm] 146/84 H 144/88 H Pulse Oximetry 100 100 99 03/24/19 17:00 03/24/19 18:00 Temperature Pulse Rate 97 H 95 H Respiratory Rate Blood Pressure 139/89 153/81 H Blood Pressure [Right Arm] Pulse Oximetry MDM - Trauma Lab Data Attestation: I reviewed the patient's lab results. Result diagrams: 03/24/19 17:14 03/24/19 12:00 Lab Results 03/24/19 03/24/19 03/24/19 Range/Units 12:00 12:00 12:00 WBC 14.3 H (4.5-11.0) X10^3/uL RBC 5.36 (4.5-5.9) X10^6/uL Hgb 15.5 (13.5-17.5) g/dL Hct 46.1 (41-53) % MCV 85.9 (80-100) fL MCH 28.9 (26-34) PG MCHC 33.6 (30-36) % RDW 13.8 (11.6-14.8) % Plt Count 322 (150-400) X10^3/uL Neut % (Auto) 78.6 H (50-75) % Lymph % (Auto) 13.1 L (25-40) % [place] % (Auto) 7.9 (3-14) % Eos % (Auto) 0.0 L (2-4) % Baso % (Auto) 0.4 (0-2) % Neut # (Auto) 82344 H (0396-1822) /uL Lymph # (Auto) 1900 (5710-2178) /uL [place] # (Auto) 1100 H (0-900) /uL Eos # (Auto) 0 (0-450) /uL Baso # (Auto) 100 (0-100) /uL Sodium 139 (137-145) mmol/L Potassium 4.0 (3.4-5.1) mmol/L Chloride 101 (98-107) mmol/L Carbon Dioxide 24 (22-32) mmol/L BUN 21 H (9-20) mg/dL Creatinine 1.00 (0.66-1.25) mg/dL Estimated GFR > 60.0 (>60) mL/min BUN/Creatinine Ratio 21.0 (6-22) Glucose 189 H (70-100) mg/dL Calcium 8.8 (8.4-10.2) mg/dL Total Bilirubin 1.8 H (0.2-1.3) mg/dL AST 26 (17-59) IU/L ALT 23 (21-72) IU/L Alkaline Phosphatase 70 (38-126) U/L Total Protein 7.6 (6.3-8.2) g/dL Albumin 4.7 (3.5-5.0) g/dL Globulin 2.9 (1.7-4.1) g/dL Albumin/Globulin Ratio 1.6 (1.0-2.8) Lipase 32 (23-300) U/L TSH (0.47-4.68) uIU/mL Ethyl Alcohol < 10 mg/dL Blood Type A Positive Antibody Screen Negative Crossmatch See Detail 03/24/19 03/24/19 03/24/19 Range/Units 12:00 12:00 17:14 WBC (4.5-11.0) X10^3/uL RBC (4.5-5.9) X10^6/uL Hgb (13.5-17.5) g/dL Hct 36.8 L (41-53) % MCV (80-100) fL MCH (26-34) PG MCHC (30-36) % RDW (11.6-14.8) % Plt Count (150-400) X10^3/uL Neut % (Auto) (50-75) % Lymph % (Auto) (25-40) % [place] % (Auto) (3-14) % Eos % (Auto) (2-4) % Baso % (Auto) (0-2) % Neut # (Auto) (0922-3619) /uL Lymph # (Auto) (9872-0831) /uL [place] # (Auto) (0-900) /uL Eos # (Auto) (0-450) /uL Baso # (Auto) (0-100) /uL Sodium (137-145) mmol/L Potassium (3.4-5.1) mmol/L Chloride (98-107) mmol/L Carbon Dioxide (22-32) mmol/L BUN (9-20) mg/dL Creatinine (0.66-1.25) mg/dL Estimated GFR (>60) mL/min BUN/Creatinine Ratio (6-22) Glucose (70-100) mg/dL Calcium (8.4-10.2) mg/dL Total Bilirubin (0.2-1.3) mg/dL AST (17-59) IU/L ALT (21-72) IU/L Alkaline Phosphatase (38-126) U/L Total Protein (6.3-8.2) g/dL Albumin (3.5-5.0) g/dL Globulin (1.7-4.1) g/dL Albumin/Globulin Ratio (1.0-2.8) Lipase (23-300) U/L TSH < 0.02 L (0.47-4.68) uIU/mL Ethyl Alcohol < 10 mg/dL Blood Type Antibody Screen Crossmatch Point of Care Testing Glucose POC [address] chest/abd/pelvis: Radiologist's impression: [facility] DATE TYPE STATUS AUTHOR Mikey 03/24/19 13:07 Heber Patricio 03/23/19 17:55 Ignacia Nolasco 11/21/18 22:48 Ignacia Nolasco Jerry M 43, [id number] ADM IN, ICU 105 -1 165.1cm 68.2kg BMI: 25.0kg/m? Search Chart ONSET 07/31/17 04/24/16 04/24/16 Today 18:00 Jaime Amaya 43 M [address] [address] [address] Scan Report Signed Patient: Monique[facility]ime [facility]#: [id number] : 1975Acct:[id number] Age/Sex: 43 / MDate of Service: 03/24/19 Loc: ED Accession Number: [id number] Procedure: CT chest abd pel w con Ordering Provider: Jennifer Beach D.O. PROCEDURE: CT CHEST ABD PEL W CON INDICATIONS: fall down stairs, hit chest onto fish tank, painful TECHNIQUE: After the administration of intravenous contrast, 5 mm thick sections acquired from the lung apices to the symphysis. 2.5 mm thick coronal and sagittal reformats were acquired. Additional 7 mm thick coronal maximum intensity projection (MIP) reformats acquired through the lungs. Optional 10-minute delayed imaging may be performed from the kidneys to the bladder. For radiation dose reduction, the following was used: automated exposure control, adjustment of mA and/or kV according to patient size. COMPARISON: [facility], CT, C-SPINE WITHOUT CONTRAST, 04/21/2017, 16:13. FINDINGS: Image quality: Excellent. CHEST: Lungs: No definite pulmonary contusions or lacerations. There is mild dependent atelectasis bilaterally and linear areas of mild atelectasis or scarring laterally in the right lung base. No pneumothorax or hemothorax. Central and peripheral airways appear patent and normal in caliber. Mediastinum: No mediastinal hematomas. There is a small amount of indistinct soft tissue within the anterior mediastinum, decreased from the prior study, compatible with residual thymic tissue. Heart size is normal. No pericardial effusion. Thoracic aorta and pulmonary arteries demonstrate normal size and enhancement. No mediastinal or hilar adenopathy. Esophagus is normal in caliber. No hiatal hernia. Chest wall: No rib fractures. No subcutaneous emphysema. No axillary or supraclavicular adenopathy. Thyroid gland demonstrates no discrete nodules. ABDOMEN: Solid organs: There is a full-thickness laceration of the spleen which appears to extend to the hilar vessels. There is a nonenhancing peripheral portion of the inferior spleen compatible with devascularization involving approximately 20-25%. An associated perisplenic hematoma is demonstrated with a few small collections adjacent to the hilum. No definite evidence of active arterial extravasation. There is perihepatic blood product likely related to the splenic laceration. This appears lower in density compared to the left upper quadrant free fluid. No discrete hepatic laceration is identified. There is focal fatty infiltration in the anterior left hepatic lobe along the falciform ligament. The gallbladder appears within normal limits without calcified gallstones. There is internal relative hyperattenuation layering in the gallbladder suggestive of biliary sludge. Biliary system is non-dilated. Pancreas enhances normally, without transection. Spleen is normal in size and enhancement, without lacerations. No adrenal hematomas. Both kidneys enhance normally, without hydronephrosis or lacerations. Peritoneum and bowel: There is a moderate amount of hemoperitoneum within the abdomen and pelvis. No free air. Small and large bowel loops demonstrate normal wall thickness and caliber. Nodes and vessels: No retroperitoneal or mesenteric adenopathy. Aorta and inferior vena cava are normal in size and enhancement. Miscellaneous: No ventral hernias. PELVIS: Genitourinary: Bladder wall thickness is normal. Miscellaneous: No inguinal hernias or adenopathy. Bones: Pelvic ring and hip joints appear intact. No vertebral compression fractures. IMPRESSION: 1. Findings compatible with a grade 4 splenic laceration extending to the hilar vessels with associated devascularization of the inferior spleen. There is associated perisplenic hematoma as well as moderate hemoperitoneum. 2. Perihepatic blood product likely related to the splenic laceration. No discrete hepatic laceration identified. 3. No fractures identified. Findings discussed with Dr. Beach on 03/24/19 at 1:44 PM. Dictated by: Heber Patricio M.D. on 03/24/2019 at 13:38 Approved by: Heber Patricio M.D. on 03/24/2019 at 13:52 ECG Data Attestation: I personally reviewed and interpreted this ECG as follows: Interpretation: Sinus tachycardia with a rate of 116 P are 141 QRS of 77 and QTC of 379. No ST elevation or depression. MDM Narrative Medical decision making narrative: Patient comes in with fall down stairs last night, states he was intoxicated he was seen but per patient himself was a difficult patient and made his evaluation difficult. He states that he went home he has continued to have significant pain and returned, imaging shows a grade 4 splenic laceration. Surgery was contacted and Dr. Brewster evaluated the patient in the department. After 1 L of fluids patient's heart rate had improved to 107, he has not been hypotensive. He was given some morphine for pain which was helpful. Plan for admission, bedrest, NPO, if patient has any changes or concerning signs plan for OR for splenectomy. Patient initially was planning to leave the department because he wanted to go to his daughter's graduation, we had a very involved conversation discussing that that would be very dangers and he had a high potential for if he left with this type of injury that he has and patient did agree to stay. Discharge Plan Departure Patient Disposition: Admitted As Inpatient Clinical Impression: Spleen laceration Discharge Date/Time: 03/24/19 16:06 Interventions: ED Discharge Assessment Last Done: 03/24/19 16:06 Admit Date/Time: 03/24/19 14:14 Admit Provider: Evgeny Brewster
[2019-03-24] MEDS: MORPHINE 4 MG/ML INJ IM (12:40)
[2019-03-24 12:48] LABS: Ethanol (ETOH) < 10 mg/dL
--- NOTE | 2019-03-24 13:07 | DI.CT.S_ITS ---
PROCEDURE: CT CHEST ABD PEL W CON INDICATIONS: fall down stairs, hit chest onto fish tank, painful TECHNIQUE: After the administration of intravenous contrast, 5 mm thick sections acquired from the lung apices to the symphysis. 2.5 mm thick coronal and sagittal reformats were acquired. Additional 7 mm thick coronal maximum intensity projection (MIP) reformats acquired through the lungs. Optional 10-minute delayed imaging may be performed from the kidneys to the bladder. For radiation dose reduction, the following was used: automated exposure control, adjustment of mA and/or kV according to patient size. COMPARISON: [facility], CT, C-SPINE WITHOUT CONTRAST, 04/21/2017, 16:13. FINDINGS: Image quality: Excellent. CHEST: Lungs: No definite pulmonary contusions or lacerations. There is mild dependent atelectasis bilaterally and linear areas of mild atelectasis or scarring laterally in the right lung base. No pneumothorax or hemothorax. Central and peripheral airways appear patent and normal in caliber. Mediastinum: No mediastinal hematomas. There is a small amount of indistinct soft tissue within the anterior mediastinum, decreased from the prior study, compatible with residual thymic tissue. Heart size is normal. No pericardial effusion. Thoracic aorta and pulmonary arteries demonstrate normal size and enhancement. No mediastinal or hilar adenopathy. Esophagus is normal in caliber. No hiatal hernia. Chest wall: No rib fractures. No subcutaneous emphysema. No axillary or supraclavicular adenopathy. Thyroid gland demonstrates no discrete nodules. ABDOMEN: Solid organs: There is a full-thickness laceration of the spleen which appears to extend to the hilar vessels. There is a nonenhancing peripheral portion of the inferior spleen compatible with devascularization involving approximately 20-25%. An associated perisplenic hematoma is demonstrated with a few small collections adjacent to the hilum. No definite evidence of active arterial extravasation. There is perihepatic blood product likely related to the splenic laceration. This appears lower in density compared to the left upper quadrant free fluid. No discrete hepatic laceration is identified. There is focal fatty infiltration in the anterior left hepatic lobe along the falciform ligament. The gallbladder appears within normal limits without calcified gallstones. There is internal relative hyperattenuation layering in the gallbladder suggestive of biliary sludge. Biliary system is non-dilated. Pancreas enhances normally, without transection. Spleen is normal in size and enhancement, without lacerations. No adrenal hematomas. Both kidneys enhance normally, without hydronephrosis or lacerations. Peritoneum and bowel: There is a moderate amount of hemoperitoneum within the abdomen and pelvis. No free air. Small and large bowel loops demonstrate normal wall thickness and caliber. Nodes and vessels: No retroperitoneal or mesenteric adenopathy. Aorta and inferior vena cava are normal in size and enhancement. Miscellaneous: No ventral hernias. PELVIS: Genitourinary: Bladder wall thickness is normal. Miscellaneous: No inguinal hernias or adenopathy. Bones: Pelvic ring and hip joints appear intact. No vertebral compression fractures. IMPRESSION: 1. Findings compatible with a grade 4 splenic laceration extending to the hilar vessels with associated devascularization of the inferior spleen. There is associated perisplenic hematoma as well as moderate hemoperitoneum. 2. Perihepatic blood product likely related to the splenic laceration. No discrete hepatic laceration identified. 3. No fractures identified. Findings discussed with Dr. Beach on 03/24/19 at 1:44 PM. Dictated by: Heber Patricio M.D. on 03/24/2019 at 13:38 Approved by: Heber Patricio M.D. on 03/24/2019 at 13:52
[2019-03-24 13:20] LABS: Thyroid Stimulating Hormone < 0.02 uIU/mL (0.47-4.68)
[2019-03-24] MEDS: MORPHINE 4 MG/ML INJ IV ×4 (15:13→21:35)
[2019-03-24] MEDS: LACTATED RINGERS 1,000 ML 500 ML IV (15:15)
--- NOTE | 2019-03-24 15:15 | PM.HP.1 ---
History of Present Illness Date Patient Seen: 03/24/19 Time Patient Seen: 15:16 Chief complaint: FELL DOWN STEPS Narrative: 43-year-old man with history of anxiety disorder and history of pulmonary embolus in [address] not on anticoagulation presents nearly 24hrs after falling down 8 stairs and forcefully striking Left lower lateral chest onto fish tank. + etoh. Pt was asses yesterday in ER where was assessed with plain films and found not to have rib fractures. He returned today now with progressive LUQ abdminal pain and ongoing L chest pain. On arrival was in marked pain with HR 138 and SBP in 140s. CT C/A/P demonstrated moderate hemoperitoneum with grade 4 splenic rupture. Hct 46. INR 1. no rib fractures. PT reports ongoing L sided pain from mid L chest to mid abdomen. Worsened with deep breathing. Denies neck, back, or head pain Denies striking other part of body Reports drinking 5th with sister bianually around both their birthdays Patient History Medical History Hyperthyroidism (Chronic 07/31/17) Generalized anxiety disorder (Chronic 04/24/16) Lower back pain (Chronic) History of pulmonary embolism (Inactive 04/24/16) Social History Smoking Status: Current every day smoker Family & Social History Safety & Behavioral: Feels Safe in Current Yes Environment Been Physically Hurt or No Threatened By a Person Tobacco & Substance use: Smoking Status Current every day smoker alcohol intake frequency 0-2 drinks per day Substance Use Type does not use Meds Home Medications Medication Instructions Recorded Confirmed Type alprazolam 1 mg tablet 1 - 2 mg PO Q8HP PRN #90 tab 03/10/19 03/24/19 Rx clonazepam 0.5 mg tablet 1 mg PO BID PRN #120 tab 03/21/19 03/24/19 Rx meloxicam 15 mg tablet 15 mg PO DAILY #30 tab 03/21/19 03/24/19 Rx methimazole 5 mg PO DAILY 03/24/19 03/24/19 History Allergies Allergy/AdvReac Type Severity Reaction Status Date / Time No Known Drug Allergies Allergy Verified 03/24/19 11:33 Review of Systems Constitutional Constitutional: Denies fever(s) Eyes Eyes: Denies bulging eyes ENT Ears, Nose, Mouth, and Throat: No lip swelling Cardiovascular Cardiovascular: Denies generalize swelling Respiratory Respiratory: Denies stridor Gastrointestinal Gastrointestinal: Denies coffee ground emesis Musculoskeletal Musculoskeletal: Denies loss of height Integumentary/Breasts Skin/Breast: Denies wounds Neurologic Neurologic: Denies abnormal speech and Denies confusion Psychiatric Psychiatric: Denies confusion Endocrine Endocrine: Denies deepening of the voice Hematologic/Lymphatic Hematologic/Lymphatic: Denies lymphadenopathy Allergic/Immunologic Allergic/Immunologic: Denies lip swelling Exam Vital Signs (past 8 hours): - 03/24/19 11:28 03/24/19 12:07 03/24/19 12:12 Temperature 98.1 F Pulse Rate 138 H 115 H 107 H Respiratory Rate 18 32 H 24 Blood Pressure 141/97 H 145/90 H Blood Pressure [Right Arm] 145/90 H Pulse Oximetry 100 97 97 03/24/19 12:30 03/24/19 13:00 03/24/19 13:30 Temperature Pulse Rate 100 H 102 H 101 H Respiratory Rate 27 H 24 24 Blood Pressure Blood Pressure [Right Arm] 137/86 121/86 146/77 H Pulse Oximetry 97 97 100 03/24/19 14:27 03/24/19 14:30 Temperature Pulse Rate 104 H 106 H Respiratory Rate 15 16 Blood Pressure Blood Pressure [Right Arm] 146/84 H 144/88 H Pulse Oximetry 100 100 Oxygen Delivery Method Room Air Narrative Exam Narrative: C -spine - no posterior midline tenderness. no pain with flex, extention, rotation of c spine no TLS spine midline tenderness Const General: cooperative and healthy appearing Orientation: alert [facility] Head: normal to inspection Nose: nares normal Mouth: oral mucosae normal and lip normal Eyes Eyelids: eyelids normal Conjunctivae: conjunctivae normal Sclera: sclerae normal Neck Neck: supple and other (No thyromegally) Chest Chest: other (LCTAB , regular respiratory effort) Other: markedly tender along L costal margin and L lateral aspects of chest Cardio Rhythm: regular rhythm Heart Sounds: S1 normal, S2 normal, no gallops, no murmurs and no rubs GI Other: abd soft, nondistended, no surgial incisions. BS hypoactive, dull to percussion, tender to percussion. Quite tender along LUQ and L lateral aspect. no rebound. + reflexive guarding. Skin General: no rashes or lesions noted Neuro General: alert and awake Psych Appearance: grossly normal Affect: normal affect Objective Labs Result Diagrams: 03/24/19 12:00 03/24/19 12:00 Labs: Laboratory Results - last 24 hr 03/24/19 03/24/19 03/24/19 12:00 12:00 12:00 WBC 14.3 H RBC 5.36 Hgb 15.5 Hct 46.1 MCV 85.9 MCH 28.9 MCHC 33.6 RDW 13.8 Plt Count 322 Neut % (Auto) 78.6 H Lymph % (Auto) 13.1 L [place] % (Auto) 7.9 Eos % (Auto) 0.0 L Baso % (Auto) 0.4 Neut # (Auto) 21103 H Lymph # (Auto) 1900 [place] # (Auto) 1100 H Eos # (Auto) 0 Baso # (Auto) 100 Sodium 139 Potassium 4.0 Chloride 101 Carbon Dioxide 24 BUN 21 H Creatinine 1.00 Estimated GFR > 60.0 BUN/Creatinine Ratio 21.0 Glucose 189 H Calcium 8.8 Total Bilirubin 1.8 H AST 26 ALT 23 Alkaline Phosphatase 70 Total Protein 7.6 Albumin 4.7 Globulin 2.9 Albumin/Globulin Ratio 1.6 Lipase 32 TSH Ethyl Alcohol < 10 Blood Type A Positive Antibody Screen Negative Crossmatch See Detail 03/24/19 03/24/19 12:00 12:00 WBC RBC Hgb Hct MCV MCH MCHC RDW Plt Count Neut % (Auto) Lymph % (Auto) [place] % (Auto) Eos % (Auto) Baso % (Auto) Neut # (Auto) Lymph # (Auto) [place] # (Auto) Eos # (Auto) Baso # (Auto) Sodium Potassium Chloride Carbon Dioxide BUN Creatinine Estimated GFR BUN/Creatinine Ratio Glucose Calcium Total Bilirubin AST ALT Alkaline Phosphatase Total Protein Albumin Globulin Albumin/Globulin Ratio Lipase TSH < 0.02 L Ethyl Alcohol < 10 Blood Type Antibody Screen Crossmatch Assessment & Plan Assessment & Plan narrative: 43 yo man post trauma day 1 now with Grade 4 splenic laceration and moderate hemoperitoneum with hct of 46 and hypertention in the setting of ETOH and chronic anziety 1) Splenic injury - Solid organ injury proticol -48hrs no mobilization - hold off on all anticoagulation - Q4hr hct -Q1hr VS - Has 4 units PRBC crossed - NPO - Will follow clinically if deteriorates - trauma splenectomy 2) Anziety - hm clonazapam - Checking QTC if OK - QhS quetiapine 3)ETOH - by history no dependency, vigilent for withdrawel - no CIWA as overlaping s/s with hemorrhagic shock 4)Pain - partial splenic infarct Multimodal pain control APAP, gabapentin, methocarbamol, morphine FEN LR 100, E ok, NPO but meds proph SCD - no chemoprophylasis with splenic injury PEG
[2019-03-24] MEDS: clonazePAM 0.5 MG TABLET 1 MG PO ×2 (16:18→20:52)
[2019-03-24] MEDS: ACETAMINOPHEN 325 MG TABLET 975 MG PO (17:11)
[2019-03-24] MEDS: GABAPENTIN 300 MG CAPSULE PO ×2 (17:11→20:52)
[2019-03-24] MEDS: METHOCARBAMOL 500 MG TABLET PO ×2 (17:11→20:52)
[2019-03-24 17:52] LABS: Hematocrit 36.8 % (41-53)
--- NOTE | 2019-03-24 18:04 | PC.NURSE ---
Addendum entered by Jackie Duenas R.N. 03/24/19 20:56: Clarified with physician that patient may have ordered miralax with fluid. Physician also okayed patient to have 1 popsicle Original Note: 1800 - Physician notified of new Hct of 36.8
[2019-03-24 20:07] LABS: Hematocrit 36.5 % (41-53)
[2019-03-24] MEDS: QUETIAPINE 25 MG TABLET PO (20:52)
[2019-03-24] MEDS: POLYETHYLENE GLYCOL 3350 17 GM POWD.PACK PO (20:52)
[2019-03-24 23:21] LABS: Hematocrit 34.9 % (41-53)
[2019-03-25] VITALS (20 sets, daily range): BP systolic 102–139; BP diastolic 53–75; PULSE 90–111; RESP 12–17; TEMP 36.6–37.4; O2SAT 93–99
[2019-03-25] MEDS: ACETAMINOPHEN 325 MG TABLET 975 MG PO ×4 (00:02→17:25)
[2019-03-25] MEDS: MORPHINE 4 MG/ML INJ IV ×5 (00:02→20:54)
[2019-03-25] MEDS: LACTATED RINGERS 1,000 ML 100 ML IV ×3 (00:03→20:54)
[2019-03-25] MEDS: MORPHINE 2 MG/ML INJ IV ×6 (02:54→12:10)
[2019-03-25 05:09] LABS: Add Manual Diff / Slide Review NO; Basophils Absolute Auto 0 /uL (0-100); Basophils Percent Auto 0.3 % (0-2); Eosinophils Absolute Auto 100 /uL (0-450); Eosinophils Percent Auto 0.9 % (2-4); Hematocrit 32.9 % (41-53); Hemoglobin 11.2 g/dL (13.5-17.5); Lymphocytes Absolute Auto 3300 /uL (1100-4500); Lymphocytes Percent Auto 30.7 % (25-40); Mean Corpuscular HGB Conc 34.2 % (30-36); Mean Corpuscular Hemoglobin 29.1 PG (26-34); Mean Corpuscular Volume 85.1 fL (80-100); Monocytes Absolute Auto 1000 /uL (0-900); Monocytes Percent Auto 9.8 % (3-14); Neutrophils Absolute Auto 6200 /uL (1500-7000); Neutrophils Percent Auto 58.3 % (50-75); Platelet Count 209 X10^3/uL (150-400); Red Blood Cell Count 3.86 X10^6/uL (4.5-5.9); Red Cell Distribution Width 13.4 % (11.6-14.8); White Blood Cell Count 10.6 X10^3/uL (4.5-11.0)
[2019-03-25 05:13] LABS: BUN Creatinine Ratio 17.8 (6-22); Blood Urea Nitrogen 16 mg/dL (9-20); Calcium 8.2 mg/dL (8.4-10.2); Carbon Dioxide 28 mmol/L (22-32); Chloride 104 mmol/L (98-107); Estimated Glomerular Filt Rate > 60.0 mL/min (>60); Glucose 100 mg/dL (70-100); HEMOLYSIS < 15 (0-50); Potassium 3.5 mmol/L (3.4-5.1); Sodium 136 mmol/L (137-145)
--- NOTE | 2019-03-25 06:18 | PC.NURSE ---
Addendum entered by Arin Browning R.N. 03/25/19 06:22: 0530 Pt having difficulty urinating throughout shift due to pain issues, and inability to use urinal. Several bladder scan attempts inconclusive because pt will not allow head to be lowered due to pain. Pt stood at bedside w/RN assist to urinate standing into commode. Was able to urinate 550mls dark franchesca clear urine. VSS remained stable during activity. HR only increased to 114. Medicated w/2mg IVP Morphine only for 6/10 pain, and 4mg decreases pt SBP, resp. drive, sats. Discussed with pt. Pt falls asleep quickly after administration. H&H stable this AM. Remains ICU care. Original Note: NOC Shift: Pt post fall secondary to ETOH intoxication w/Grade 4 splenic lac. Pt AAOx3. Complains of pain everywhere especially on left sided rib cage, torso and abdominal pain re: spleen. VSS, SR/ST on tele. On bedrest. NPO, IVF's. Giving IVP Morphine for pain control, and RTC Tylenol. Serial H&H draws, currently stable. ICU care.
--- NOTE | 2019-03-25 07:44 | PM.PN.1 ---
Subjective Date Patient Seen: 03/25/19 Time Patient Seen: 07:44 Interval history: Patient's history and presentation to the emergency department is reviewed. Apparently he was drinking as a biannual celebration with his sister. Became quite intoxicated fell down some stairs into a fish tank resulting in some chest wall injury and as it turns out rupturing or lacerating his spleen. He has been hemodynamically stable but was admitted for very careful observation obviously. Patient with longstanding anxiety treated when he 1st came to me with alprazolam alone. I added a long-acting benzodiazepine in an effort to try and minimize his use of the short-acting benzodiazepines. That is been marginally effective. Patient reported lack of efficacy of other non benzo medications for his anxiety. He has been quite stable with his medications he has not shown any sort of drug-seeking behavior review of his prescription refill history in the prescription monitoring system of the [facility] is always been unremarkable with no evidence of unexpected prescription fills refills etc. however it is concerning that he would drink to this level on top of the benzodiazepines as he has been warned about the potential interaction, and I think now understands fully why the warnings that I have given him are important. Currently sitting in the ICU he is somewhat somnolent but essentially seems comfortable. Not exactly happy to be here and hoping to be able to travel for a pre planned trip to [place], potentially within the week. Exam Vital Signs (past 8 hours): - 03/25/19 00:03 03/25/19 01:12 03/25/19 02:03 Temperature 97.9 F Pulse Rate 102 H 100 H 92 H Respiratory Rate 16 12 12 Blood Pressure 130/74 108/73 125/74 Pulse Oximetry 95 94 95 03/25/19 02:07 03/25/19 03:06 03/25/19 04:06 Temperature Pulse Rate 91 H 95 H Respiratory Rate 12 12 Blood Pressure 115/64 120/63 Pulse Oximetry 94 93 94 03/25/19 05:00 03/25/19 06:07 03/25/19 07:00 Temperature 98.3 F Pulse Rate 94 H 96 H 90 Respiratory Rate 14 17 12 Blood Pressure 102/59 L 113/74 107/70 Pulse Oximetry 94 99 96 03/25/19 07:38 Temperature Pulse Rate Respiratory Rate Blood Pressure Pulse Oximetry 96 Oxygen Delivery Method Room Air Oxygen Flow Rate 0 Objective Labs Result Diagrams: 03/25/19 04:38 03/25/19 04:38 Labs: Laboratory Results - last 24 hr 03/24/19 03/24/19 03/24/19 12:00 12:00 12:00 WBC 14.3 H RBC 5.36 Hgb 15.5 Hct 46.1 MCV 85.9 MCH 28.9 MCHC 33.6 RDW 13.8 Plt Count 322 Neut % (Auto) 78.6 H Lymph % (Auto) 13.1 L [place] % (Auto) 7.9 Eos % (Auto) 0.0 L Baso % (Auto) 0.4 Neut # (Auto) 32502 H Lymph # (Auto) 1900 [place] # (Auto) 1100 H Eos # (Auto) 0 Baso # (Auto) 100 Sodium 139 Potassium 4.0 Chloride 101 Carbon Dioxide 24 BUN 21 H Creatinine 1.00 Estimated GFR > 60.0 BUN/Creatinine Ratio 21.0 Glucose 189 H Calcium 8.8 Magnesium Total Bilirubin 1.8 H AST 26 ALT 23 Alkaline Phosphatase 70 Total Protein 7.6 Albumin 4.7 Globulin 2.9 Albumin/Globulin Ratio 1.6 Lipase 32 TSH Nasal Screen MRSA (PCR) Ethyl Alcohol < 10 Blood Type A Positive Antibody Screen Negative Crossmatch See Detail 03/24/19 03/24/19 03/24/19 12:00 12:00 17:14 WBC RBC Hgb Hct 36.8 L MCV MCH MCHC RDW Plt Count Neut % (Auto) Lymph % (Auto) [place] % (Auto) Eos % (Auto) Baso % (Auto) Neut # (Auto) Lymph # (Auto) [place] # (Auto) Eos # (Auto) Baso # (Auto) Sodium Potassium Chloride Carbon Dioxide BUN Creatinine Estimated GFR BUN/Creatinine Ratio Glucose Calcium Magnesium Total Bilirubin AST ALT Alkaline Phosphatase Total Protein Albumin Globulin Albumin/Globulin Ratio Lipase TSH < 0.02 L Nasal Screen MRSA (PCR) Ethyl Alcohol < 10 Blood Type Antibody Screen Crossmatch 03/24/19 03/24/19 03/24/19 17:20 19:57 23:06 WBC RBC Hgb Hct 36.5 L 34.9 L MCV MCH MCHC RDW Plt Count Neut % (Auto) Lymph % (Auto) [place] % (Auto) Eos % (Auto) Baso % (Auto) Neut # (Auto) Lymph # (Auto) [place] # (Auto) Eos # (Auto) Baso # (Auto) Sodium Potassium Chloride Carbon Dioxide BUN Creatinine Estimated GFR BUN/Creatinine Ratio Glucose Calcium Magnesium Total Bilirubin AST ALT Alkaline Phosphatase Total Protein Albumin Globulin Albumin/Globulin Ratio Lipase TSH Nasal Screen MRSA (PCR) Negative for mrsa Ethyl Alcohol Blood Type Antibody Screen Crossmatch 03/25/19 03/25/19 04:38 04:38 WBC 10.6 RBC 3.86 L Hgb 11.2 L Hct 32.9 L MCV 85.1 MCH 29.1 MCHC 34.2 RDW 13.4 Plt Count 209 Neut % (Auto) 58.3 D Lymph % (Auto) 30.7 [place] % (Auto) 9.8 Eos % (Auto) 0.9 L Baso % (Auto) 0.3 Neut # (Auto) 6200 Lymph # (Auto) 3300 [place] # (Auto) 1000 H Eos # (Auto) 100 Baso # (Auto) 0 Sodium 136 L Potassium 3.5 Chloride 104 Carbon Dioxide 28 BUN 16 Creatinine 0.90 Estimated GFR > 60.0 BUN/Creatinine Ratio 17.8 Glucose 100 Calcium 8.2 L Magnesium 2.0 Total Bilirubin AST ALT Alkaline Phosphatase Total Protein Albumin Globulin Albumin/Globulin Ratio Lipase TSH Nasal Screen MRSA (PCR) Ethyl Alcohol Blood Type Antibody Screen Crossmatch Assessment & Plan Assessment & Plan narrative: Patient is status post fall with splenic laceration being monitored very carefully by General surgery here. Appears to be hemodynamically stable and at this point this seems more likely than not to me that he will avoid surgical intervention. Patient has been continued on his long-acting benzodiazepine, clonazepam, which should be continued Otherwise seems to be medically stable. Today's visit was more of a social visit than anything else. Quality VTE Deep Vein Thrombosis/Pulmonary Embolism Present on Admission: No
[2019-03-25] MEDS: clonazePAM 0.5 MG TABLET 1 MG PO ×2 (08:18→20:54)
[2019-03-25] MEDS: METHOCARBAMOL 500 MG TABLET PO ×4 (08:18→20:54)
[2019-03-25] MEDS: methIMAzole 5 MG TABLET PO (08:18)
[2019-03-25] MEDS: GABAPENTIN 300 MG CAPSULE PO ×3 (08:18→20:54)
--- NOTE | 2019-03-25 08:38 | P.PN_ITS ---
Subjective Date Patient Seen: 03/25/19 Time Patient Seen: 08:30 Interval history: Tackycardia resolved overnight, Normotensive, downward drift on hct from 46 on admission to 32.9 Anziety somewhat improved Still with considerable LUQ pain radiating to much of abdomen Exam Vital Signs (past 8 hours): - 03/25/19 01:12 03/25/19 02:03 03/25/19 02:07 Temperature Pulse Rate 100 H 92 H Respiratory Rate 12 12 Blood Pressure 108/73 125/74 Pulse Oximetry 94 95 94 03/25/19 03:06 03/25/19 04:06 03/25/19 05:00 Temperature Pulse Rate 91 H 95 H 94 H Respiratory Rate 12 12 14 Blood Pressure 115/64 120/63 102/59 L Pulse Oximetry 93 94 94 03/25/19 06:07 03/25/19 07:00 03/25/19 07:38 Temperature 98.3 F Pulse Rate 96 H 90 Respiratory Rate 17 12 Blood Pressure 113/74 107/70 Pulse Oximetry 99 96 96 Oxygen Delivery Method Room Air Oxygen Flow Rate 0 Narrative Exam Narrative: Looks well but in some pain LcTAB RRR no mgr Abd tender with minimal palpation in LUQ and along L side, R side tender but less so. Moderate reflexive guarding periphery warm Objective Labs Result Diagrams: 03/25/19 04:38 03/25/19 04:38 Labs: Laboratory Results - last 24 hr 03/24/19 03/24/19 03/24/19 12:00 12:00 12:00 WBC 14.3 H RBC 5.36 Hgb 15.5 Hct 46.1 MCV 85.9 MCH 28.9 MCHC 33.6 RDW 13.8 Plt Count 322 Neut % (Auto) 78.6 H Lymph % (Auto) 13.1 L [place] % (Auto) 7.9 Eos % (Auto) 0.0 L Baso % (Auto) 0.4 Neut # (Auto) 28866 H Lymph # (Auto) 1900 [place] # (Auto) 1100 H Eos # (Auto) 0 Baso # (Auto) 100 Sodium 139 Potassium 4.0 Chloride 101 Carbon Dioxide 24 BUN 21 H Creatinine 1.00 Estimated GFR > 60.0 BUN/Creatinine Ratio 21.0 Glucose 189 H Calcium 8.8 Magnesium Total Bilirubin 1.8 H AST 26 ALT 23 Alkaline Phosphatase 70 Total Protein 7.6 Albumin 4.7 Globulin 2.9 Albumin/Globulin Ratio 1.6 Lipase 32 TSH Nasal Screen MRSA (PCR) Ethyl Alcohol < 10 Blood Type A Positive Antibody Screen Negative Crossmatch See Detail 03/24/19 03/24/19 03/24/19 12:00 12:00 17:14 WBC RBC Hgb Hct 36.8 L MCV MCH MCHC RDW Plt Count Neut % (Auto) Lymph % (Auto) [place] % (Auto) Eos % (Auto) Baso % (Auto) Neut # (Auto) Lymph # (Auto) [place] # (Auto) Eos # (Auto) Baso # (Auto) Sodium Potassium Chloride Carbon Dioxide BUN Creatinine Estimated GFR BUN/Creatinine Ratio Glucose Calcium Magnesium Total Bilirubin AST ALT Alkaline Phosphatase Total Protein Albumin Globulin Albumin/Globulin Ratio Lipase TSH < 0.02 L Nasal Screen MRSA (PCR) Ethyl Alcohol < 10 Blood Type Antibody Screen Crossmatch 03/24/19 03/24/19 03/24/19 17:20 19:57 23:06 WBC RBC Hgb Hct 36.5 L 34.9 L MCV MCH MCHC RDW Plt Count Neut % (Auto) Lymph % (Auto) [place] % (Auto) Eos % (Auto) Baso % (Auto) Neut # (Auto) Lymph # (Auto) [place] # (Auto) Eos # (Auto) Baso # (Auto) Sodium Potassium Chloride Carbon Dioxide BUN Creatinine Estimated GFR BUN/Creatinine Ratio Glucose Calcium Magnesium Total Bilirubin AST ALT Alkaline Phosphatase Total Protein Albumin Globulin Albumin/Globulin Ratio Lipase TSH Nasal Screen MRSA (PCR) Negative for mrsa Ethyl Alcohol Blood Type Antibody Screen Crossmatch 03/25/19 03/25/19 04:38 04:38 WBC 10.6 RBC 3.86 L Hgb 11.2 L Hct 32.9 L MCV 85.1 MCH 29.1 MCHC 34.2 RDW 13.4 Plt Count 209 Neut % (Auto) 58.3 D Lymph % (Auto) 30.7 [place] % (Auto) 9.8 Eos % (Auto) 0.9 L Baso % (Auto) 0.3 Neut # (Auto) 6200 Lymph # (Auto) 3300 [place] # (Auto) 1000 H Eos # (Auto) 100 Baso # (Auto) 0 Sodium 136 L Potassium 3.5 Chloride 104 Carbon Dioxide 28 BUN 16 Creatinine 0.90 Estimated GFR > 60.0 BUN/Creatinine Ratio 17.8 Glucose 100 Calcium 8.2 L Magnesium 2.0 Total Bilirubin AST ALT Alkaline Phosphatase Total Protein Albumin Globulin Albumin/Globulin Ratio Lipase TSH Nasal Screen MRSA (PCR) Ethyl Alcohol Blood Type Antibody Screen Crossmatch Assessment & Plan Assessment & Plan narrative: 43 yo man HD2, PTD2 admitted for grade 4 splenic laceration Currently with good hemodynamics, Hct down trending but well above transfusion thresholds at 32.8 Leukocytosis resolving. Splenic injury- Continue solid organ injury proticol No mobilization, no chemoproph for DVT Serial HCT Tenderness on exam - inferior pole splenic infarct + known hemoperitoneum Continue NPO Anziety hm clonazapam QHS quetiapine - dose increased tonight hyper thyroid hm methimazole Quality VTE Deep Vein Thrombosis/Pulmonary Embolism Present on Admission: No
[2019-03-25 10:28] LABS: Prothrombin Time 12.1 SECONDS (10.1-12.7)
--- NOTE | 2019-03-25 12:04 | PC.NURSE ---
Addendum entered by Carleen Devine R.N. 03/25/19 14:22: Pt unable to void in bed, stood at bedside, voided 125cc franchesca colored urine. Bladder scanned for 320cc. Message left at [address] Brewster to call back to inform him of above. Original Note: Pt c/o pain to chest and abdomen 06/14, given 2mg IVP morphine. Pt requesting the 4mg IVP morphine, states the 2 doesnt work, the pain is the same. Instructed patient that I would reassess pain in 30 minutes and given additional 2mg if needed, this RN also expressed concern for patients drowsiness and low BP after 4mg IV morphine was administered earlier this morning. Pt verbalized understanding and still adamant about receiving the additional 2mg of morphine.
[2019-03-25 14:16] LABS: Hematocrit 31.4 % (41-53)
--- NOTE | 2019-03-25 14:35 | CM.DANOTE ---
Addendum entered by Chantel Sellers 03/25/19 15:08: Patient most likely would benefit from PT/OT evaluations when medically appropriate to help assist with d/c planning needs. Original Note: DCP/Assessment: Reviewed chart. Patient is a 43yr old male admitted to [facility].. with chest/abdominal pain. PCP listed is Dr. Chirinos. Primary payor is 1)[facility] 2)Medicaid. Met with patient and significant other/Laury at bedside explained CM/SW role. Patient with flat affect during interview. Laury answered most of the questions. Laury reports that patient completely I in all ADL's prior to admit. Patient had fallen a few days ago and came to ED. Patient was released home and symptoms worsened therefore, patient returned to ED and now admitted with splenic injury. Patient being followed and managed by surgery. Patient denies using illegal drugs and reports that he only drinks alcohol on occasion. Patient does smoke cigarettes. Patient denies needing or wanting nicotine patch. Patient and Laury had plans to travel to [place] for graduation celebration this week. However, as of right now it is unclear on whether or not patient will be able to safely travel. Laury reports that celebration is on Sunday. She does plan to go. At this time d/c date and needs unknown. It will depend on patient's progress. Per surgeon notes, patient with h/o anxiety disorder and alcoholism. 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 May need to revisit prior to discharge. P: Follow closely for d/c planning. Patient plans home when medically stable. BRAYDEN Quintana Discharge Planning/Care Management CM Discharge Assessment Start: 03/25/19 14:33 Freq: Status: Active Protocol: Document 03/25/19 14:33 KJS (Rec: 03/25/19 14:35 KJS [id number]) Discharge Planning Assessment Assigned Personal Financial Representative BRAYDEN Quintana Advance Directives? No History Provided By Patient Significant Other Medical Record Prior Living Arrangements Apartment/Condo Household Members significant other Type of transporation used prior to Drives own vehicle admit Independent with ADL's Yes Is patient alert and oriented? Yes Caregiver for Another No Comment Unclear at this time. Discharge Plan Home Transportation Arrangement Significant other to provide transport. Additional Comment Pending hospitalization Whiteboard Updated in Patient Room with Yes name and ext. # of Personal Financial Representative Review Status In Process Next Review Type Continued Stay Review
[2019-03-25] MEDS: LACTATED RINGERS 500 ML 1000 ML IV (18:38)
[2019-03-25] MEDS: QUETIAPINE 25 MG TABLET 50 MG PO (20:54)
[2019-03-25] MEDS: POLYETHYLENE GLYCOL 3350 17 GM POWD.PACK PO (20:55)
[2019-03-26] VITALS (15 sets, daily range): BP systolic 109–136; BP diastolic 56–84; PULSE 80–105; RESP 12–24; TEMP 37.1–37.7; O2SAT 94–98
[2019-03-26] MEDS: MORPHINE 4 MG/ML INJ IV ×5 (00:03→09:22)
[2019-03-26 05:05] LABS: Add Manual Diff / Slide Review NO; Basophils Absolute Auto 0 /uL (0-100); Basophils Percent Auto 0.3 % (0-2); Eosinophils Absolute Auto 100 /uL (0-450); Eosinophils Percent Auto 1.7 % (2-4); Hematocrit 27.4 % (41-53); Hemoglobin 9.3 g/dL (13.5-17.5); Lymphocytes Absolute Auto 2400 /uL (1100-4500); Lymphocytes Percent Auto 32.7 % (25-40); Mean Corpuscular HGB Conc 33.9 % (30-36); Mean Corpuscular Volume 85.5 fL (80-100); Monocytes Absolute Auto 700 /uL (0-900); Monocytes Percent Auto 9.9 % (3-14); Neutrophils Absolute Auto 4100 /uL (1500-7000); Neutrophils Percent Auto 55.4 % (50-75); Platelet Count 183 X10^3/uL (150-400); White Blood Cell Count 7.4 X10^3/uL (4.5-11.0)
[2019-03-26 05:13] LABS: BUN Creatinine Ratio 12.5 (6-22); Blood Urea Nitrogen 10 mg/dL (9-20); Carbon Dioxide 28 mmol/L (22-32); Chloride 106 mmol/L (98-107); Estimated Glomerular Filt Rate > 60.0 mL/min (>60); Glucose 90 mg/dL (70-100); HEMOLYSIS < 15 (0-50); Potassium 3.6 mmol/L (3.4-5.1); Sodium 137 mmol/L (137-145)
[2019-03-26] MEDS: ACETAMINOPHEN 325 MG TABLET 975 MG PO ×3 (06:25→17:07)
[2019-03-26] MEDS: LACTATED RINGERS 1,000 ML 100 ML IV (06:33)
--- NOTE | 2019-03-26 06:46 | PC.NURSE ---
NOC Shift: Pt continues to have 8/10 left sided rib, torso abdomen pain re: stage 4 splenic LAC. Receiving frequent doses Morphine 4mg IV for pain. Pt states it only helps for an hour. New IV site placed previous site infiltrated. V Pt NPO at midnight per MD standing order, pt aware, compliant. VSS, ST/SR on tele. Continues to have low grade temps, pt encouraged to CDB, and use IS however difficult given pain issues. Pt on strict bedrest other than standing to urinate, or sitting on knees in bed to urinate. Continues to have difficulty with starting flow, but has had better results with urinating tonight and urine is now clear yellow. H&H this AM 08/02. Remains ICU care.
[2019-03-26] MEDS: GABAPENTIN 300 MG CAPSULE PO ×2 (09:31→14:28)
[2019-03-26] MEDS: methIMAzole 5 MG TABLET PO (09:31)
[2019-03-26] MEDS: METHOCARBAMOL 500 MG TABLET PO ×3 (09:32→17:07)
[2019-03-26] MEDS: clonazePAM 0.5 MG TABLET 1 MG PO (09:36)
[2019-03-26] MEDS: OXYCODONE IR 5 MG TABLET 10 MG PO (11:45)
[2019-03-26 13:11] LABS: Hematocrit 28.9 % (41-53)
[2019-03-26] MEDS: OXYCODONE IR 5 MG TABLET 15 MG PO (15:31)
--- NOTE | 2019-03-26 16:28 | P.DS_ITS ---
History of Present Illness Chief complaint: FELL DOWN STEPS Narrative: 43-year-old man with history of anxiety disorder and history of pulm onary embolus in [address] not on anticoagulation presents nearly 24hrs after falling down 8 stairs and forcefully striking Left lower lateral chest onto fish tank. + etoh. Pt was asses yesterday in ER where was assessed with plain films and found not to have rib fractures. He returned today now with progressive LUQ abdminal pain and ongoing L chest pain. On arrival was in marked pain with HR 138 and SBP in 140s. CT C/A/P demonstrated moderate hemoperitoneum with grade 4 splenic rupture. Hct 46. INR 1. no rib fractures. PT reports ongoing L sided pain from mid L chest to mid abdomen. Worsened with deep breathing. Denies neck, back, or head pain Denies striking other part of body Reports drinking 5th with sister bianually around both their birthdays Discharge Providers Date of admission: 03/24/19 14:14 Discharge Date: 03/26/19 Primary care physician: Baldemar Chirinos MD Discharge provider: Evgeny Brewster Summary Discharge Diagnosis: splenic rupture - non operative splenic infarct hemoperitoneum anxiety Hospital Course: Admitted to hospital - kept on solid organ proticol ie no mobilization serial hct. Remained with out hypotention. Hct drifted from 46 down to 27 and then stabilized. abdominal pain improved. Pt pain controled with oral agents aware of need to not have risk of repeat injury for 4 weeks Status at Discharge Cognitive/behavioral status at discharge: oriented Functional status at discharge: independent ambulation Overall status at discharge: patient is progressing back to baseline Time Spent with Patient Greater than 30 minutes Exam Vital Signs (past 8 hours): - 03/26/19 09:00 03/26/19 09:59 03/26/19 11:00 Temperature 99.6 F 99.9 F H Pulse Rate 99 H 90 Respiratory Rate 14 12 Blood Pressure 115/57 L 110/56 L Pulse Oximetry 94 98 95 03/26/19 13:00 Temperature 99.8 F H Pulse Rate 98 H Respiratory Rate 17 Blood Pressure 136/84 Pulse Oximetry 97 Oxygen Delivery Method Room Air Oxygen Flow Rate 0 Narrative Exam Narrative: well apearing breathing comfortably RRR Abd soft, tender along L side, improved from prior Objective Labs Result Diagrams: 03/26/19 12:55 03/26/19 04:35 Labs: Laboratory Results - last 24 hr 03/26/19 03/26/19 03/26/19 04:35 04:35 12:55 WBC 7.4 RBC 3.20 L Hgb 9.3 L Hct 27.4 L 28.9 L MCV 85.5 MCH 29.0 MCHC 33.9 RDW 13.0 Plt Count 183 Neut % (Auto) 55.4 Lymph % (Auto) 32.7 [place] % (Auto) 9.9 Eos % (Auto) 1.7 L Baso % (Auto) 0.3 Neut # (Auto) 4100 Lymph # (Auto) 2400 [place] # (Auto) 700 Eos # (Auto) 100 Baso # (Auto) 0 Sodium 137 Potassium 3.6 Chloride 106 Carbon Dioxide 28 BUN 10 Creatinine 0.80 Estimated GFR > 60.0 BUN/Creatinine Ratio 12.5 Glucose 90 Calcium 8.0 L Discharge Plan Discharge Plan Patient Disposition: Home Discharge comment: Conditional - must meet all criteria: 1) no tackycardia, no hypotention, 2) pain controlled on orals only, 3) tolerating a diet, 4) pt desires discharge Discharge Med Rec/Prescriptions Prescriptions: New acetaminophen 500 mg capsule 1,000 mg PO Q6HR Qty: 40 RF: 0 gabapentin 300 mg capsule 300 mg PO TID Qty: 30 RF: 0 methocarbamol 500 mg Tablet 500 mg PO QID Qty: 30 RF: 0 oxycodone 5 mg capsule See Rx Instructions .ROUTE .COMPLEX PRN (Reason: Pain, Severe (7-10)) Qty: 40 RF: 0 polyethylene glycol 3350 17 gram Powder In Packet 17 gram PO BID Qty: 30 RF: 0 quetiapine 25 mg Tablet 50 mg PO BEDTIME Qty: 20 RF: 0 Continued methimazole 5 mg tablet 5 mg PO DAILY RF: 0 Discontinued alprazolam 1 mg tablet 1 - 2 mg PO Q8HP PRN (Reason: anxiety) Qty: 90 RF: 0 meloxicam 15 mg tablet 15 mg PO DAILY Qty: 30 RF: 3 clonazepam 0.5 mg tablet 1 mg PO BID PRN (Reason: anxiety) Qty: 120 RF: 0 Follow up/Referrals: Baldemar Chirinos MD [Primary Care Provider] - Provider Discharge Instructions Diet: Diet as Tolerated Activity: ABSOLUTELY NO ACTIVITIES THAT RISK BLOW TO ABDOMEN OR FALL FOR 4 WEEKS. Light activity for next week Return to medical care if lightheaded/feel going to pass out - pain becomes severe - or you are unusually weak Skin/Wound/Dressing Care Report to your healthcare provider any signs of infection, such as:: chills, fever Visit Report/Discharge Packet Instructions: DI for Trauma Discharge Data Primary Care Provider: Baldemar Chirinos Attending Provider: Evgeny Brewster Admit Date/Time: 03/24/19 14:14 Quality VTE Deep Vein Thrombosis/Pulmonary Embolism Present on Admission: No
--- NOTE | 2019-03-26 18:59 | PC.NURSE ---
1850- Patient given discharge instruction with his fiance present. Perscriptions filled prior to discharge. IV removed and tele monitor off. Patient verbalizes understanding of instruction.
== END 2019-03-26 18:59 | disposition home or self-care (01) | DRG 663 ==
LOC: ED 14:00 → AC 14:15 → ICU 03-25 09:01
PROVIDERS: Admitting Provider Surgery; Emergency Provider Emergency Medicine; Family Provider Internal Medicine; PCP Internal Medicine; Visit Provider Surgery
DX: S36.032A Major laceration of spleen, initial encounter (principal); D62 Acute posthemorrhagic anemia; S20.212A Contusion of left front wall of thorax, initial encounter; Z86.711 Personal history of pulmonary embolism; Z87.891 Personal history of nicotine dependence; F41.9 Anxiety disorder, unspecified; W10.8XXA Fall (on) (from) other stairs and steps, initial encounter
CPT/HCPCS: 36415; 71101; 71260; 74177; 80048; 80053; 80320; 82962; 83690; 83735; 84443; 85014; 85025; 85610; 86850; 86900; 86901; 87797; 93005; 93010; 94762; 96361; 96374; 96376; 99282; 99284; 99285; J2270; Q9967

== ENCOUNTER → 2019-04-10 10:39 | Outpatient (CLI) | payer OTHER, MEDICAID, SELFPAY ==
[2019-03-24 14:23] VITALS: BMI 25.0
[2019-04-10 11:42] LABS: Hematocrit 40.5 % (41-53); Hemoglobin 13.8 g/dL (13.5-17.5)
[2019-04-10 12:03] LABS: Blood Urea Nitrogen 12 mg/dL (9-20); Calcium 9.4 mg/dL (8.4-10.2); Carbon Dioxide 24 mmol/L (22-32); Chloride 107 mmol/L (98-107); Estimated Glomerular Filt Rate > 60.0 mL/min (>60); Glucose 91 mg/dL (70-100); HEMOLYSIS < 15 (0-50); Potassium 4.2 mmol/L (3.4-5.1); Sodium 140 mmol/L (137-145)
[2019-04-10 12:18] LABS: Free T4, Direct Thyroxine 1.03 ng/dL (0.78-2.19)
[2019-04-10 12:32] LABS: Thyroid Stimulating Hormone < 0.02 uIU/mL (0.47-4.68)
== END ==
PROVIDERS: PCP Internal Medicine; Visit Provider Internal Medicine
DX: E05.90 Thyrotoxicosis, unspecified without thyrotoxic crisis or storm (principal); S36.039A Unspecified laceration of spleen, initial encounter
CPT/HCPCS: 36415; 80048; 84439; 84443; 84481; 85014; 85018

== ENCOUNTER 2019-05-01 22:34 | Emergency (ER) | payer OTHER, MEDICAID, SELFPAY ==
[2019-03-24 14:23] VITALS: BMI 25.0
[2019-05-01 22:38] VITALS: BP 134/78; PULSE 76; RESP 18; TEMP 36.5; O2SAT 99; BMI 25.7
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
[2019-05-01 23:26] VITALS: BP 129/78; PULSE 74; RESP 15; O2SAT 96
[2019-05-02] MEDS: KETOROLAC 60 MG/2 ML VIAL IM (00:40)
[2019-05-02] MEDS: HYDROCODONE/ACET 5/325 TABLET 2 TAB PO (00:40)
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
[2019-05-02 01:40] VITALS: BP 138/92; PULSE 78; RESP 14; O2SAT 98
== END 2019-05-02 01:40 | disposition home or self-care (01) ==
PROVIDERS: Emergency Provider Emergency Medicine; PCP Internal Medicine
DX: M54.5 Low back pain (principal); W22.8XXA Striking against or struck by other objects, initial encounter; Y99.0 Civilian activity done for income or pay
CPT/HCPCS: 71101; 96372; 99282; 99283; J1885

== ENCOUNTER 2019-07-29 22:01 | Emergency (ER) | payer OTHER, MEDICAID, SELFPAY ==
[2019-03-24 14:23] VITALS: BMI 25.0
[2019-07-29 22:01] VITALS: BP 111/66; PULSE 74; RESP 15; TEMP 36.3; O2SAT 99; BMI 25.7
--- NOTE | 2019-07-30 01:03 | ED.NAVMDI ---
HPI - Nausea/Vomiting/Diarrhea General Chief complaint: Nausea/Vomiting/Diarrhea Stated complaint: Vomiting and diarrhea all day Time Seen by Provider: 07/30/19 01:03 Source: patient Mode of arrival: Ambulatory Limitations: no limitations History of Present Illness HPI Narrative: The patient has been ill started yesterday. He developed diarrhea yesterday. There is no blood with the diarrhea. He has upper abdominal cramping. He has had multiple episodes of emesis today. He now has a headache. He has right ear pain. He denies sinus congestion, sore throat or cough. He has no chest pain or dyspnea. He has moderate upper abdominal pain, no lower abdominal pain. He is on Prazosin for anxiety. He has no other chronic illness. Related Data Previous Rx's Medication Instructions Recorded acetaminophen 1,000 mg PO Q6HR #40 cap 03/26/19 gabapentin 300 mg PO TID #30 cap 03/26/19 ibuprofen 800 mg PO TID PRN #20 tab 05/02/19 meloxicam 15 mg tablet 15 mg PO DAILY #90 tab 05/13/19 methimazole 5 mg tablet 5 mg PO DAILY #90 tab 05/13/19 clonazepam 0.5 mg tablet 1 mg PO BID #120 tab 07/15/19 alprazolam 1 mg tablet See Rx Instructions .ROUTE 07/28/19 .COMPLEX PRN #90 tab Allergies Allergy/AdvReac Type Severity Reaction Status Date / Time No Known Drug Allergies Allergy Verified 07/29/19 22:01 Review of Systems Constitutional Constitutional: Reports chills, Denies fever(s), Denies lethargy and Denies weakness Comments: He complains of global headache. He has no associated neck pain. Eyes Eyes: Denies change in vision, Denies eye discharge, Denies irritation and Denies loss of vision ENT Ears, Nose, Mouth, and Throat: Denies change in voice, Denies neck pain and Denies sore throat Cardiovascular Cardiovascular: Denies chest pain, Denies irregular heart rhythm, Denies lightheadedness, Denies palpitations, Denies dyspnea and Denies dyspnea on exertion Respiratory Respiratory: Denies cough, Denies dyspnea, Denies dyspnea on exertion and Denies wheezing Gastrointestinal Gastrointestinal: Reports abdominal pain, Denies change in bowel habits, Reports diarrhea, Reports nausea and Reports vomiting Genitourinary Comments: No dysuria Musculoskeletal Musculoskeletal: Denies back pain and Denies neck pain Integumentary/Breasts Skin/Breast: Denies erythema and Denies rash Neurologic Neurologic: Denies behavioral changes, Denies loss of vision and Denies weakness Psychiatric Psychiatric: Denies anxiety and Denies behavioral changes Endocrine Endocrine: Denies palpitations Allergic/Immunologic Allergic/Immunologic: Denies wheezing [facility] Medical History (Updated 07/30/19 @ 03:56 by René Fajardo MD) Generalized anxiety disorder (Chronic 04/24/16) History of pulmonary embolism (Inactive 04/24/16) Hyperthyroidism (Chronic 07/31/17) Lower back pain (Chronic) No significant past surgical history (Acute) Social History household members: significant other Smoking Status: Current every day smoker alcohol intake: current Social History household members: significant other Smoking Status: Current every day smoker alcohol intake: current Exam Initial Vital Signs Initial Vital Signs: Vital Signs Temperature 97.4 F L 07/29/19 22:01 Pulse Rate 74 07/29/19 22:01 Respiratory Rate 15 07/29/19 22:01 Blood Pressure 111/66 07/29/19 22:01 Pulse Oximetry 99 07/29/19 22:01 Const General: cooperative and well developed Nutritional Appearance: well nourished Orientation: alert, awake, oriented x3 and not confused [facility] Head: normocephalic and atraumatic Ears: external ears normal and TM abnormal (Clear liquid behind both TMs. No erythema.) Nose: external nose normal and No nasal discharge Face and sinus: sinuses nontender, face symmetric, no sinus tenderness and No dry mucous membranes Mouth: oral mucosae normal and moist mucous membranes Teeth and gingiva: dentition normal Throat: tonsils normal and uvula midline Eyes General: appearance normal, both eyes and all related structures Eyelids: eyelids normal Conjunctivae: conjunctivae normal Sclera: sclerae normal Pupils: PERRL EOM: EOM intact bilaterally Neck Neck: normal visual inspection, trachea midline, No lymphadenopathy, No midline deformity and No JVD Lymphatic: No lymphedema Chest Chest: normal inspection of the chest Resp Effort & Inspection: normal respiratory effort and able to speak in complete sentences Auscultation: clear to auscultation bilaterally, no rales, no rhonchi and no wheezes Cardio Rate: regular rate Rhythm: regular rhythm Heart Sounds: no click, no gallops, no murmurs and no rubs Pulses: normal peripheral pulses GI Inspection: non-distended Palpation: soft, no hepatosplenomegaly, No pulsatile mass and tender (Mild epigastric tenderness without guarding or rebound) Auscultation: normal bowel sounds Back/Spine/Pelvis Back: No CVA tenderness Skin General: no rashes or lesions noted, No jaundice and No petechiae Neuro General: alert, oriented x3, gait normal and no focal motor deficits Speech: speech normal Extrem General: full ROM, no clubbing, cyanosis or edema, no pedal edema and no calf tenderness Psych Appearance: well kempt Mental Status: mental status grossly normal Attitude: cooperative Thought Content: normal Judgment: judgment good Course Course Course Narrative: The patient was hydrated 2 L of normal saline. With medications given his headache is improved. He has no ongoing nausea or vomiting. He will be discharged with Zofran. He will given a work note to stay home today, allowing him to rest. Orders Ordered: ED Orders 07/30/19 01:44 Complete Blood Count AUTO DIFF Stat Comprehensive Metabolic Panel Stat Lipase Stat Discontinued Medications Sodium Chloride (Normal Saline 0.9%) 1,000 mls @ 1,000 mls/hr IV BOLUS ONE Stop: 07/30/19 02:28 Last Infusion: 07/30/19 03:06 Dose: 0 mls/hr Documented by: Admin: 07/30/19 01:35 Dose: 1,000 mls/hr Documented by: BUTCH Sodium Chloride (Normal Saline 0.9%) 1,000 mls @ 1,000 mls/hr IV BOLUS ONE Stop: 07/30/19 04:15 Last Infusion: 07/30/19 04:12 Dose: 0 mls/hr Documented by: Admin: 07/30/19 03:16 Dose: 1,000 mls/hr Documented by: BUTCH Ketorolac Tromethamine (Toradol) 30 mg IV NOW ONE Stop: 07/30/19 01:30 Last Admin: 07/30/19 01:35 Dose: 30 mg Documented by: BUTCH Morphine Sulfate (Morphine) 4 mg IV NOW ONE Stop: 07/30/19 02:48 Last Admin: 07/30/19 02:54 Dose: 4 mg Documented by: BUTCH Ondansetron HCl (Zofran) 4 mg IV NOW ONE Stop: 07/30/19 01:30 Last Admin: 07/30/19 01:35 Dose: 4 mg Documented by: BUTCH Ondansetron HCl (Zofran Odt Prepack) 1 bottle MISC SEEINSTR ONE Stop: 07/30/19 03:57 Last Admin: 07/30/19 04:03 Dose: 1 bottle Documented by: RHEA Vital Signs Vital signs: Vital Signs - 8 hr 07/30/19 03:30 07/30/19 04:13 Pulse Rate 73 75 Respiratory Rate 18 16 Blood Pressure 106/55 L Blood Pressure [Right Arm] 130/69 Pulse Oximetry 97 97 MDM - Nausea/Vomiting/Diarrhea Lab Data Result diagrams: 07/30/19 01:44 07/30/19 01:44 Labs: Lab Results 07/30/19 07/30/19 07/30/19 Range/Units 01:44 01:44 01:44 WBC 7.9 (4.5-11.0) X10^3/uL RBC 4.68 (4.5-5.9) X10^6/uL Hgb 13.7 (13.5-17.5) g/dL Hct 40.5 L (41-53) % MCV 86.6 (80-100) fL MCH 29.2 (26-34) PG MCHC 33.7 (30-36) % RDW 14.9 H (11.6-14.8) % Plt Count 309 (150-400) X10^3/uL Neut % (Auto) 58.0 (50-75) % Lymph % (Auto) 31.5 (25-40) % [place] % (Auto) 7.9 (3-14) % Eos % (Auto) 1.6 L (2-4) % Baso % (Auto) 1.0 (0-2) % Neut # (Auto) 4600 (9371-6619) /uL Lymph # (Auto) 2500 (0589-2181) /uL [place] # (Auto) 600 (0-900) /uL Eos # (Auto) 100 (0-450) /uL Baso # (Auto) 100 (0-100) /uL Sodium 143 (137-145) mmol/L Potassium 3.7 (3.4-5.1) mmol/L Chloride 112 H (98-107) mmol/L Carbon Dioxide 22 (22-32) mmol/L BUN 15 (9-20) mg/dL Creatinine 0.80 (0.66-1.25) mg/dL Estimated GFR > 60.0 (>60) mL/min BUN/Creatinine Ratio 18.8 (6-22) Glucose 108 H (70-100) mg/dL Calcium 8.5 (8.4-10.2) mg/dL Total Bilirubin 0.4 (0.2-1.3) mg/dL AST 14 L (17-59) IU/L ALT 18 L (21-72) IU/L Alkaline Phosphatase 50 (38-126) U/L Total Protein 5.9 L (6.3-8.2) g/dL Albumin 3.5 (3.5-5.0) g/dL Globulin 2.4 (1.7-4.1) g/dL Albumin/Globulin Ratio 1.5 (1.0-2.8) Lipase 85 Cancelled (23-300) U/L Urine Dip Bedside Urine Glucose Negative Bedside Urine Bilirubin - Negative Bedside Urine Ketone - Negative Urine Specific [place] 1.025 Bedside Urine Occult Blood - Negative Bedside Urine pH 6.0 Bedside Urine Protein +/- 15 Bedside Urine Urobilinogen +/- 1mg Bedside Urine Nitrite - Negative Bedside Urine Leukocytes - Negative Esterase Discharge Plan Departure Patient Disposition: Home Clinical Impression: Acute viral syndrome Discharge Date/Time: 07/30/19 04:13 Instructions: DI for Vomiting -- Adult Activity Restrictions/Additional Instructions: Zofran every 4 hours as needed for nausea. Take Tylenol or Advil as necessary for headache or pain. Rest at home, be sure you are drinking plenty of fluids. Return to ER as necessary. Prescriptions: No Action methimazole 5 mg tablet 5 mg PO DAILY Qty: 90 RF: 3 meloxicam 15 mg tablet 15 mg PO DAILY Qty: 90 RF: 0 clonazepam 0.5 mg tablet 1 mg PO BID Qty: 120 RF: 0 alprazolam 1 mg tablet See Rx Instructions .ROUTE .COMPLEX PRN (Reason: anxiety) Qty: 90 RF: 0 acetaminophen 500 mg capsule 1,000 mg PO Q6HR Qty: 40 RF: 0 gabapentin 300 mg capsule 300 mg PO TID Qty: 30 RF: 0 ibuprofen 800 mg tablet 800 mg PO TID PRN (Reason: pain) Qty: 20 RF: 0 Referrals: Baldemar Chirinos MD [Primary Care Provider] - Stand Alone Forms: Work Release Note
[2019-07-30] MEDS: SODIUM CHLORIDE 0.9% 1,000 ML 1000 ML IV ×2 (01:35→03:16)
[2019-07-30] MEDS: KETOROLAC 60 MG/2 ML VIAL 30 MG IV (01:35)
[2019-07-30] MEDS: ONDANSETRON 4 MG/2 ML INJ IV (01:35)
[2019-07-30 01:57] LABS: Add Manual Diff / Slide Review NO; Basophils Absolute Auto 100 /uL (0-100); Eosinophils Absolute Auto 100 /uL (0-450); Eosinophils Percent Auto 1.6 % (2-4); Hematocrit 40.5 % (41-53); Hemoglobin 13.7 g/dL (13.5-17.5); Lymphocytes Absolute Auto 2500 /uL (1100-4500); Lymphocytes Percent Auto 31.5 % (25-40); Mean Corpuscular HGB Conc 33.7 % (30-36); Mean Corpuscular Hemoglobin 29.2 PG (26-34); Mean Corpuscular Volume 86.6 fL (80-100); Monocytes Absolute Auto 600 /uL (0-900); Monocytes Percent Auto 7.9 % (3-14); Neutrophils Absolute Auto 4600 /uL (1500-7000); Platelet Count 309 X10^3/uL (150-400); Red Blood Cell Count 4.68 X10^6/uL (4.5-5.9); Red Cell Distribution Width 14.9 % (11.6-14.8); White Blood Cell Count 7.9 X10^3/uL (4.5-11.0)
[2019-07-30 02:04] LABS: Alanine Aminotransferase 18 IU/L (21-72); Albumin 3.5 g/dL (3.5-5.0); Albumin Globulin Ratio 1.5 (1.0-2.8); Alkaline Phosphatase 50 U/L (38-126); Aspartate Aminotransferase 14 IU/L (17-59); BUN Creatinine Ratio 18.8 (6-22); Bilirubin Total 0.4 mg/dL (0.2-1.3); Blood Urea Nitrogen 15 mg/dL (9-20); Calcium 8.5 mg/dL (8.4-10.2); Carbon Dioxide 22 mmol/L (22-32); Chloride 112 mmol/L (98-107); Estimated Glomerular Filt Rate > 60.0 mL/min (>60); Globulin 2.4 g/dL (1.7-4.1); Glucose 108 mg/dL (70-100); HEMOLYSIS < 15 (0-50); Lipase 85 U/L (23-300); Potassium 3.7 mmol/L (3.4-5.1); Sodium 143 mmol/L (137-145); Total Protein 5.9 g/dL (6.3-8.2)
[2019-07-30] MEDS: MORPHINE 4 MG/ML INJ IV (02:54)
[2019-07-30 03:30] VITALS: BP 130/69; PULSE 73; RESP 18; O2SAT 97
[2019-07-30] MEDS: ONDANSETRON 4 MG ODT PREPACK 1 BOTTLE MISC (04:03)
[2019-07-30 04:13] VITALS: BP 106/55; PULSE 75; RESP 16; O2SAT 97
== END 2019-07-30 04:13 | disposition home or self-care (01) ==
PROVIDERS: Emergency Provider Emergency Medicine; Family Provider Internal Medicine; PCP Internal Medicine
DX: B34.9 Viral infection, unspecified (principal)
CPT/HCPCS: 36415; 80053; 81003; 83690; 85025; 96361; 96374; 96375; 99283; 99284; J1885; J2270; J2405

== ENCOUNTER 2019-08-06 17:19 | Emergency (ER) | payer OTHER, MEDICAID, SELFPAY ==
[2019-03-24 14:23] VITALS: BMI 25.0
[2019-08-06 17:36] VITALS: BP 131/83; PULSE 76; RESP 16; TEMP 36.6; O2SAT 99; BMI 56.1
[2019-08-06] MEDS: TRAMADOL 50 MG TABLET PO (20:41)
[2019-08-06] MEDS: ACETAMINOPHEN 325 MG TABLET 975 MG PO (20:41)
[2019-08-06] MEDS: IBUPROFEN 400 MG TABLET 800 MG PO (20:41)
[2019-08-06 21:35] VITALS: BP 129/80; PULSE 69; RESP 14
--- NOTE | 2019-08-07 04:39 | ED.UPPEXIN ---
HPI - Extremity Injury (Upper) <AUTUMN Barillas - Last Filed: 08/07/19 05:01> General Chief Complaint: Extremity Injury, Upper Stated Complaint: rt shoulder pain Time Seen by Provider: 08/06/19 20:06 Source: patient Mode of arrival: Ambulatory Limitations: no limitations History of Present Illness HPI narrative: This is a 43-year-old gentleman, smoker, who presents to ED with chronic right anterior shoulder pain for last 1-2 years. Reports pain is all on top of his shoulder and increases with any movements. He reports some tingling and decreased sensation to inner elbow down to his mid hand and finger. Patient is right dominant hand. Patient reports he has difficult time with internal rotation and beyond 90 degree he is unable to have active range of motion. Patient reports his shoulder pain has been severe and this has been affecting his sleep and work. He noticed right arm has been swollen as compared to a affected site. His primary care physician had set up an appointment for further imaging test and physical therapy had Tal/DOLLY Barriga but he works 2 jobs and does not have car and has difficult time keeping the appointment and had canceled several times in the past. He was evaluated at [facility] recently. Related Data Home Medications Medication Instructions Recorded Confirmed alprazolam 1 - 2 mg PO TID PRN 08/06/19 meloxicam 15 mg PO DAILY 08/06/19 08/06/19 Previous Rx's Medication Instructions Recorded methimazole 5 mg tablet 5 mg PO DAILY #90 tab 05/13/19 clonazepam 0.5 mg tablet 1 mg PO BID #120 tab 07/15/19 tramadol 50 mg PO Q12H PRN #14 tab 08/06/19 Allergies Allergy/AdvReac Type Severity Reaction Status Date / Time No Known Drug Allergies Allergy Verified 08/06/19 17:41 Review of Systems <AUTUMN Barillas - Last Filed: 08/07/19 05:01> Review of Systems ROS Unobtainable: All systems reviewed & are unremarkable except as noted in HPI and below PFSH <AUTUMN Barillas - Last Filed: 08/07/19 05:01> Medical History Generalized anxiety disorder (Chronic 04/24/16) History of pulmonary embolism (Inactive 04/24/16) Hyperthyroidism (Chronic 07/31/17) Lower back pain (Chronic) Surgical History No significant past surgical history (Acute) Social History household members: significant other Smoking Status: Current every day smoker alcohol intake: current Social History household members: significant other Smoking Status: Current every day smoker alcohol intake: current Exam <AUTUMN Barillas - Last Filed: 08/07/19 05:01> Narrative Exam Narrative: General appearance: well developed, well nourished, in no acute distress. Head: normocephalic, atraumatic, no scalp lesions, non-tender. Eye: pupil equal, round. EOMI. Nose: nares patent. Oral: mucosa moist. Neck/Thyroid: neck supple, full range of motion, no visible masses. Skin: no suspicious rashes, lesions over visible areas. Warm and dry. Heart: no clubbing, no cyanosis, no edema. Lungs: Breathing even and unlabored. No stridor. No accessory muscles used. Chest: normal shape and expansion. Abdomen: non-obese, non-distended. Neurologic: alert and oriented. 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 Psych: good eye contact, normal affect. Initial Vital Signs Initial Vital Signs: Vital Signs Temperature 97.8 F 08/06/19 17:36 Pulse Rate 76 08/06/19 17:36 Respiratory Rate 16 08/06/19 17:36 Blood Pressure 131/83 08/06/19 17:36 Pulse Oximetry 99 08/06/19 17:36 Extrem Right upper extremity: normal capillary refill, edema (Slight generalized right arm edema), shoulder/upper arm Details: tenderness Location: of the A-C joint, swelling Location: other (Very mild generalized swelling to right arm), axillary nerve sensory function normal, abnormal ROM Details: pain with active ROM and other (no erythema); no deformity and no unusual warmth and hand Details: neuromotor exam abnormal Details: other (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), tendon exam normal Location: of all digits, vascular exam Details: radial pulse present; capillary refill abnormal, normal ROM of fingers and swelling; no tenderness, no unusual warmth, no lacerations and no ecchymosis; ROM limited and no cyanosis <René Fajardo MD - Last Filed: 08/07/19 07:05> Initial Vital Signs Initial Vital Signs: Vital Signs Temperature 97.8 F 08/06/19 17:36 Pulse Rate 76 08/06/19 17:36 Respiratory Rate 16 08/06/19 17:36 Blood Pressure 131/83 08/06/19 17:36 Pulse Oximetry 99 08/06/19 17:36 Course <AUTUMN Barillas - Last Filed: 08/07/19 05:01> Orders Ordered: Discontinued Medications Acetaminophen (Tylenol) 975 mg PO NOW ONE Stop: 08/06/19 20:27 Last Admin: 08/06/19 20:41 Dose: 975 mg Documented by: MMCFARL Ibuprofen (Advil) 800 mg PO NOW ONE Stop: 08/06/19 20:27 Last Admin: 08/06/19 20:41 Dose: 800 mg Documented by: MMCFARL Tramadol HCl (Ultram) 50 mg PO NOW ONE Stop: 08/06/19 20:27 Last Admin: 08/06/19 20:41 Dose: 50 mg Documented by: NICOLEL Vital Signs Vital signs: Vital Signs - 8 hr 08/06/19 21:35 Pulse Rate 69 Respiratory Rate 14 Blood Pressure 129/80 <René Fajardo MD - Last Filed: 08/07/19 07:05> Orders Ordered: Discontinued Medications Acetaminophen (Tylenol) 975 mg PO NOW ONE Stop: 08/06/19 20:27 Last Admin: 08/06/19 20:41 Dose: 975 mg Documented by: TEREFARL Ibuprofen (Advil) 800 mg PO NOW ONE Stop: 08/06/19 20:27 Last Admin: 08/06/19 20:41 Dose: 800 mg Documented by: MMCFARL Tramadol HCl (Ultram) 50 mg PO NOW ONE Stop: 08/06/19 20:27 Last Admin: 08/06/19 20:41 Dose: 50 mg Documented by: NICOLEL Vital Signs Vital signs: Vital Signs - 8 hr 08/06/19 21:35 Pulse Rate 69 Respiratory Rate 14 Blood Pressure 129/80 [facility] - Extremity Injury (Upper) <AUTUMN Barillas - Last Filed: 08/07/19 05:01> Differential Diagnosis Differential diagnosis: Likely other (Chronic shoulder pain, nerve impingement, AC separation) Medical Records Attestation: I reviewed the patient's medical records. [facility] Narrative Medical decision making narrative: This is a 43-year-old gentleman, who presents to ED with chronic right shoulder pain started about 1 or 2 years ago. Since he has been busy with 2 jobs and and not having transportation to [facility], patient has been having difficult time getting to his appointments for physical therapy and imaging tests and canceled several times in the past. Patient reports the shoulder pain has been severe and it has been affecting his sleep and work. Right arm has very mild edema without erythema or warmth. Right radial pulse is intact. Patient is able to abduct and forward flex about 90 degree. Patient states internal rotation increases pain and states can scratches back. Advised using daily NSAIDS as needed for discomfort and Tylenol. Patient was given small dose of toward our for home use for severe pain and strongly encouraged to follow up with his primary care physician's referral appointment for physical therapy and possible advanced imaging test. X-ray test was deferred today since there is no new injury or trauma to the affected shoulder as the patient has a referral for further imaging test from his primary care physician. Return precautions were discussed with the patient and Patient agrees with treatment plan and no further questions were expressed at this time. Discharge Plan Departure Patient Disposition: Home Clinical Impression: Chronic shoulder pain Qualifiers: Laterality: right Qualified Code(s): M25.511 - Pain in right shoulder Discharge Date/Time: 08/06/19 21:35 Instructions: DI for Shoulder Pain Activity Restrictions/Additional Instructions: You have been diagnosed with [ Chronic R shoulder ]. What to do: *Take your medications as directed. You were medicated in ED with Tylenol, Motrin, Tramadol for this. If you are taking Mobic, please do not take additional Motrin. You can take upto tylenol 4000 mg /24 hr period and Motrin 600-800 threee times a day with food as needed. *Follow up with your primary care provider in 2-3 days, call for an appointment. Let them know you were seen in the ED and that we asked you to be seen in follow up. Please do follow up for physical therapy/imaging tests that were arranged by your PCP. *Return to ED if you have any new, worsening, or concerning symptoms, such as [worsening pain, weakness/tingling/numbness, chest pain, breathing difficulty, or any acute concerns]. Prescriptions: New tramadol 50 mg tablet 50 mg PO Q12H PRN (Reason: pain) Qty: 14 RF: 0 No Action methimazole 5 mg tablet 5 mg PO DAILY Qty: 90 RF: 3 clonazepam 0.5 mg tablet 1 mg PO BID Qty: 120 RF: 0 meloxicam 15 mg tablet 15 mg PO DAILY RF: 0 alprazolam 1 mg tablet 1 - 2 mg PO TID PRN (Reason: Anxiety) RF: 0 Referrals: Baldemar Chirinos MD [Primary Care Provider] -
== END 2019-08-06 21:35 | disposition home or self-care (01) ==
PROVIDERS: Emergency Provider Nurse Practitioner Family; Family Provider Internal Medicine; PCP Internal Medicine
DX: M25.511 Pain in right shoulder (principal)
CPT/HCPCS: 99282; 99283

== ENCOUNTER → 2019-08-11 16:53 | Outpatient (CLI) | payer OTHER, MEDICAID, SELFPAY ==
[2019-03-24 14:23] VITALS: BMI 25.0
--- NOTE | 2019-08-11 16:55 | DI.RAD.S_ITS ---
PROCEDURE: XR LUMBAR SPINE MIN 4V INDICATIONS: lumbar spine pain TECHNIQUE: 5 views of the lumbar spine were acquired. COMPARISON: None. FINDINGS: Bones: 5 nonrib-bearing vertebrae are present. There is normal bony alignment. No vertebral body compression fractures. No suspicious bony lesions. Soft tissues: Overlying bowel gas pattern is normal. No suspicious soft tissue calcifications. Oblique images: No pars defects. IMPRESSION: Unremarkable radiographic examination of lumbar spine. Dictated by: Regan Grayson M.D. on 08/11/2019 at 17:15 Approved by: Regan Grayson M.D. on 08/11/2019 at 17:16
== END ==
PROVIDERS: PCP Internal Medicine; Visit Provider Internal Medicine
DX: M54.5 Low back pain (principal)
CPT/HCPCS: 72110

== ENCOUNTER 2020-01-01 04:42 | Emergency (ER) | payer OTHER, MEDICAID, SELFPAY ==
[2019-03-24 14:23] VITALS: BMI 25.0
[2020-01-01 04:49] VITALS: BP 151/89; PULSE 95; RESP 15; TEMP 36.9; O2SAT 95; BMI 25.7
--- NOTE | 2020-01-01 04:49 | ED_ITS ---
HPI - Extremity Injury (Upper) General Chief Complaint: Extremity Injury, Upper Stated Complaint: right arm/elbow popped moving furniture/pain Time Seen by Provider: 01/01/20 04:48 History of Present Illness HPI narrative: 44-year-old right-handed otherwise healthy gentleman presents af ter reaching over a bed and feeling a severe pop in his right antecubital fossa followed by increasing pain and overall weakness in his arm. It happened just prior to arrival. Related Data Previous Rx's Medication Instructions Recorded methimazole 5 mg tablet 5 mg PO DAILY #90 tab 05/13/19 trazodone 50 mg tablet 50 mg PO BEDTIME #60 tab 08/19/19 hydrocodone 5 mg-acetaminophen 325 See Rx Instructions PO Q4H PRN #15 10/23/19 mg tablet tab clonazepam 0.5 mg tablet 1 mg PO BID #120 tab 12/05/19 alprazolam 1 mg tablet 1 - 2 mg PO TID PRN #90 tab 12/15/19 meloxicam 15 mg tablet 15 mg PO DAILY #90 tab 12/15/19 Allergies Allergy/AdvReac Type Severity Reaction Status Date / Time No Known Drug Allergies Allergy Verified 08/19/19 15:52 Review of Systems Review of Systems Narrative: Denies ? fever ? cough ? cold ? chills ? chest pain ? dyspnea ? orthopnea ? wheezing ? abdominal pain ? change to bowel or bladder habits ? nausea vomiting ? skin changes ? rashes Patient History Medical History Generalized anxiety disorder (Chronic 04/24/16) History of pulmonary embolism (Inactive 04/24/16) Hyperthyroidism (Chronic 07/31/17) Insomnia (Chronic) Lower back pain (Chronic) Surgical History No significant past surgical history (Acute) Social History household members: significant other Smoking Status: Current every day smoker alcohol intake: current Smoking Status: Current every day smoker alcohol intake frequency: holidays/special occasions only Substance Use Type: does not use Exam Narrative Exam Narrative: General: Alert appropriate in moderate pain and somewhat anxious Respiratory: Able to speak in full sentences, no obvious respiratory distress Skin: No obvious rashes, warm and dry Neurologic: Grossly intact no obvious asymmetries or abnormalities Psych, appropriate insight and affect, cooperative Right upper extremity: Neurovascularly intact distal, contracted right bicep with palpable tendon rupture distally. No bruising or hematoma at this time Initial Vital Signs Initial Vital Signs: Vital Signs Temperature 98.5 F 01/01/20 04:49 Pulse Rate 95 H 01/01/20 04:49 Respiratory Rate 15 01/01/20 04:49 Blood Pressure 151/89 H 01/01/20 04:49 Pulse Oximetry 95 01/01/20 04:49 Course Orders Ordered: Discontinued Medications Ibuprofen (Advil) 400 mg PO NOW ONE Stop: 01/01/20 04:55 Last Admin: 01/01/20 05:00 Dose: 400 mg Documented by: MMCFARL Oxycodone/Acetaminophen (Percocet 5/325) 1 tab PO NOW ONE Stop: 01/01/20 04:55 Last Admin: 01/01/20 05:00 Dose: 1 tab Documented by: MMCFARL Oxycodone/Acetaminophen (Endocet 5/325 Prepack) 1 bottle MISC SEEINSTR ONE Stop: 01/01/20 04:55 Last Admin: 01/01/20 05:01 Dose: 1 bottle Documented by: MMCFARL Vital Signs Vital signs: Vital Signs - 8 hr 01/01/20 04:49 01/01/20 05:15 Temperature 98.5 F Pulse Rate 95 H 90 Respiratory Rate 15 16 Blood Pressure 151/89 H Blood Pressure [Left Arm] 142/87 H Pulse Oximetry 95 97 [facility] - Extremity Injury (Upper) Medical Records Attestation: I reviewed the patient's medical records. [facility] Narrative Medical decision making narrative: Exam and history are strongly suggestive for a bicipital tendon rupture on the right side. Have suggested orthopedic evaluation and given him a work that he is unable to return to work using his right hand until he has been seen by the orthopedist. 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 Anticipatory guidance with information printed out for him, pain control and sling. He is safe for home discharge Discharge Plan Departure Patient Disposition: Home Clinical Impression: Biceps tendon rupture Qualifiers: Encounter type: initial encounter Laterality: right Qualified Code(s): S46.211A - Strain of muscle, fascia and tendon of other parts of biceps, right arm, initial encounter Activity Restrictions/Additional Instructions: Thank you for coming in today. Your history and your exam both suggest that you tore your biceps tendon. I have given you some information on what I by septal tendon rupture is as well as what you might expect in terms of overall healing. He will very likely need an orthopedic follow-up. Dr. Sellers is traffic personnel supervisor this evening and I will include her office phone number. Please use the sling for comfort. Ice can also be helpful. 400 mg of ibuprofen with 1 Percocet as needed every 6 hours for severe pain will be appropriate in the next 1-3 days. After that 400 mg of ibuprofen with a single Tylenol will be appropriate if you're still having pain. I would encourage you to call Dr. Sellers's office to schedule an appointment. If they do need a referral beyond the recommendation from this visit please follow- up with Dr. Chirinos who can help facilitate that. I hope you heal quickly. Prescriptions: No Action methimazole 5 mg tablet 5 mg PO DAILY Qty: 90 RF: 3 hydrocodone-acetaminophen 5-325 mg tablet See Rx Instructions PO Q4H PRN (Reason: pain) Qty: 15 RF: 0 clonazepam 0.5 mg tablet 1 mg PO BID Qty: 120 RF: 0 meloxicam 15 mg tablet 15 mg PO DAILY Qty: 90 RF: 3 alprazolam 1 mg tablet 1 - 2 mg PO TID PRN (Reason: Anxiety) Qty: 90 RF: 0 trazodone 50 mg tablet 50 mg PO BEDTIME Qty: 60 RF: 3 Referrals: Baldemar Chirinos MD [Primary Care Provider] - Jenny Sellers MD [Physician] - (bicepital tendon rupture.)
[2020-01-01] MEDS: OXYCODONE/ACETAMINOPHEN 5/325 TABLET 1 TAB PO (05:00)
[2020-01-01] MEDS: IBUPROFEN 400 MG TABLET PO (05:00)
[2020-01-01] MEDS: OXYCODONE/APAP 5/325 PREPACK 1 BOTTLE MISC (05:01)
[2020-01-01 05:15] VITALS: BP 142/87; PULSE 90; RESP 16; O2SAT 97
--- NOTE | 2020-01-01 05:21 | ED_ITS ---
HPI - Extremity Injury (Upper) General Chief Complaint: Extremity Injury, Upper Stated Complaint: right arm/elbow popped moving furniture/pain Time Seen by Provider: 01/01/20 04:48 Source: patient History of Present Illness HPI narrative: 44-year-old right-handed man was reaching down along the edge of the bed to grab something on the floor when he felt a significant pop in the right antecubital fossa accompanied by significant pain and then weakness in the right upper extremity. He comes into the emergency room for further evaluation. The injury happened just prior to arrival. Related Data Previous Rx's Medication Instructions Recorded methimazole 5 mg tablet 5 mg PO DAILY #90 tab 05/13/19 trazodone 50 mg tablet 50 mg PO BEDTIME #60 tab 08/19/19 hydrocodone 5 mg-acetaminophen 325 See Rx Instructions PO Q4H PRN #15 10/23/19 mg tablet tab clonazepam 0.5 mg tablet 1 mg PO BID #120 tab 12/05/19 alprazolam 1 mg tablet 1 - 2 mg PO TID PRN #90 tab 12/15/19 meloxicam 15 mg tablet 15 mg PO DAILY #90 tab 12/15/19 Allergies Allergy/AdvReac Type Severity Reaction Status Date / Time No Known Drug Allergies Allergy Verified 08/19/19 15:52 Review of Systems Review of Systems Narrative: Denies ? fever ? cough ? cold ? chills ? chest pain ? dyspnea ? orthopnea ? wheezing ? abdominal pain ? change to bowel or bladder habits ? nausea vomiting ? skin changes ? rashes Patient History Medical History Generalized anxiety disorder (Chronic 04/24/16) History of pulmonary embolism (Inactive 04/24/16) Hyperthyroidism (Chronic 07/31/17) Insomnia (Chronic) Lower back pain (Chronic) Surgical History No significant past surgical history (Acute) Social History household members: significant other Smoking Status: Current every day smoker alcohol intake: current Smoking Status: Current every day smoker alcohol intake frequency: holidays/special occasions only Substance Use Type: does not use Exam Narrative Exam Narrative: General: Alert appropriate in no acute distress Respiratory: Able to speak in full sentences, no obvious respiratory distress Skin: No obvious rashes, warm and dry Neurologic: Grossly intact no obvious asymmetries or abnormalities Psych, appropriate insight and affect, cooperative Right upper extremity: Contracted right bicep with step-off distally suggesting tendon rupture. No hematoma, abrasions or contusions. He is neurovascularly intact distally Initial Vital Signs Initial Vital Signs: Vital Signs Temperature 98.5 F 01/01/20 04:49 Pulse Rate 95 H 01/01/20 04:49 Respiratory Rate 15 01/01/20 04:49 Blood Pressure 151/89 H 01/01/20 04:49 Pulse Oximetry 95 01/01/20 04:49 Course Orders Ordered: Discontinued Medications Ibuprofen (Advil) 400 mg PO NOW ONE Stop: 01/01/20 04:55 Last Admin: 01/01/20 05:00 Dose: 400 mg Documented by: MMCFARL Oxycodone/Acetaminophen (Percocet 5/325) 1 tab PO NOW ONE Stop: 01/01/20 04:55 Last Admin: 01/01/20 05:00 Dose: 1 tab Documented by: MMCFARL Oxycodone/Acetaminophen (Endocet 5/325 Prepack) 1 bottle MISC SEEINSTR ONE Stop: 01/01/20 04:55 Last Admin: 01/01/20 05:01 Dose: 1 bottle Documented by: MMCFARL Vital Signs Vital signs: Vital Signs - 8 hr 01/01/20 04:49 01/01/20 05:15 Temperature 98.5 F Pulse Rate 95 H 90 Respiratory Rate 15 16 Blood Pressure 151/89 H Blood Pressure [Left Arm] 142/87 H Pulse Oximetry 95 97 [facility] - Extremity Injury (Upper) Medical Records Attestation: I reviewed the patient's medical records. [facility] Narrative Medical decision making narrative: History and physical exam were all consistent with an acute right distal bicipital tendon rupture. He has been referred to Dr. Jenny Sellers. I have given him a note that states he may not use his right arm at work until he has been cleared by Dr. Sellers. He is placed in a sling, rest ice and nonsteroidals as well as a limited supply of Percocet to help with pain control. He is given printed information on bicipital tendon rupture Discharge Plan Departure Patient Disposition: Home Clinical Impression: Biceps tendon rupture Qualifiers: Encounter type: initial encounter Laterality: right Qualified Code(s): S46.211A - Strain of muscle, fascia and tendon of other parts of biceps, right arm, initial encounter Discharge Date/Time: 01/01/20 05:19 Activity Restrictions/Additional Instructions: Thank you for coming in today. Your history and your exam both suggest that you tore your biceps tendon. I have given you some information on what I by septal tendon rupture is as well as what you might expect in terms of overall healing. He will very likely need an orthopedic follow-up. Dr. Sellers is recreation director this evening and I will include her office phone number. Please use the sling for comfort. Ice can also be helpful. 400 mg of ibuprofen with 1 Percocet as needed every 6 hours for severe pain will be appropriate in the next 1-3 days. After that 400 mg of ibuprofen with a single Tylenol will be appropriate if you're still having pain. I would encourage you to call Dr. Sellers's office to schedule an appointment. If they do need a referral beyond the recommendation from this visit please follow- up with Dr. Chirinos who can help facilitate that. I hope you heal quickly. Prescriptions: No Action methimazole 5 mg tablet 5 mg PO DAILY Qty: 90 RF: 3 hydrocodone-acetaminophen 5-325 mg tablet See Rx Instructions PO Q4H PRN (Reason: pain) Qty: 15 RF: 0 clonazepam 0.5 mg tablet 1 mg PO BID Qty: 120 RF: 0 meloxicam 15 mg tablet 15 mg PO DAILY Qty: 90 RF: 3 alprazolam 1 mg tablet 1 - 2 mg PO TID PRN (Reason: Anxiety) Qty: 90 RF: 0 trazodone 50 mg tablet 50 mg PO BEDTIME Qty: 60 RF: 3 Referrals: Baldemar Chirinos MD [Primary Care Provider] - Jenny Sellers MD [Physician] - (bicepital tendon rupture.)
== END 2020-01-01 05:19 | disposition home or self-care (01) ==
LOC: ED 05:13
PROVIDERS: Emergency Provider Emergency Medicine; PCP Internal Medicine
DX: S46.211A Strain of muscle, fascia and tendon of other parts of biceps, right arm, initial encounter (principal)
CPT/HCPCS: 99283

== ENCOUNTER → 2020-01-07 19:43 | Outpatient (CLI) | payer OTHER, MEDICAID, SELFPAY ==
[2019-03-24 14:23] VITALS: BMI 25.0
--- NOTE | 2020-01-07 | DI.MRI.S_ITS ---
PROCEDURE: MR HUMERUS RT WO CON INDICATIONS: strain of muscle, fascia and tendon of other parts TECHNIQUE: Noncontrast coronal and sagittal T1 spin echo and STIR; axial T1 spin echo and T2 fast spin echo with fat saturation through the humerus and elbow. COMPARISON: None. FINDINGS: Image quality: Excellent. Bones: The visualized bone marrow demonstrates normal signal on all sequences. The overlying cortex appears intact. No fractures lines or intra-osseous lesions. Soft tissues: High-grade partial rupture of the distal biceps tendon near the radial insertion site (favored over complete rupture.) No definite retracted tendon stump is seen although there is marked thickening, intrasubstance signal change of the distal biceps tendon, and adjacent fluid and edema. This extends to level of the musculotendinous junction for example image 10/. Suboptimal evaluation of the long head biceps tendon at the level of the shoulder due to large [id number], although this appears grossly intact. If there is sufficient clinical suspicion, dedicated shoulder MRI could be performed for better characterization IMPRESSION: High-grade partial rupture/strain of the distal biceps tendon. No definite retracted tendon stump is seen to suggest complete rupture. Adjacent fluid edema which extends to the level of the musculotendinous junction. Dictated by: Sacha Prescott M.D. on 01/08/2020 at 9:30 Approved by: Sacha Prescott M.D. on 01/08/2020 at 10:12
== END ==
PROVIDERS: PCP Internal Medicine; Referring Provider Orthopaedic Surgery; Visit Provider Orthopaedic Surgery
DX: S46.211A Strain of muscle, fascia and tendon of other parts of biceps, right arm, initial encounter (principal); X58.XXXA Exposure to other specified factors, initial encounter
CPT/HCPCS: 73218

== ENCOUNTER 2020-01-09 13:19 | Day surgery (SDC) | payer OTHER, MEDICAID, SELFPAY ==
[2019-03-24 14:23] VITALS: BMI 25.0
[2020-01-09] VITALS (13 sets, daily range): BP systolic 101–133; BP diastolic 63–89; PULSE 79–104; RESP 9–20; TEMP 36.9–37.3; O2SAT 95–98; BMI 24.6
[2020-01-09] MEDS: ACETAMINOPHEN 325 MG TABLET 975 MG PO (13:55)
[2020-01-09] MEDS: GABAPENTIN 300 MG CAPSULE PO (13:56)
[2020-01-09] MEDS: LACTATED RINGERS 1,000 ML 42 ML IV (13:56)
[2020-01-09] MEDS: CELECOXIB 200 MG CAPSULE 400 MG PO (13:56)
--- NOTE | 2020-01-09 15:05 | PM.PREOP ---
Pre-operative Note Interval Note History & Physical reviewed/Exam performed by Physician: Yes Changes to H&P: No H&P completed within 30 days and has changed as indicated here:: MRI scan confirms a distal biceps rupture on the right with fluid collection and some edema, patient notes some residual hand numbness some difficulty making a tight fist, his right shoulder is better but he still having pretty severe right elbow pain. He also notes significant right elbow weakness.
--- NOTE | 2020-01-09 15:20 | P.OP_ITS ---
Operative Date/Time/Diagnoses Date of procedure: 01/09/20 Time of procedure: 15:20 Pre-op diagnosis: Right distal biceps rupture Post-op diagnosis: same Procedure & Clinicians Procedure: Right distal biceps repair Same procedure as scheduled: Yes Indications: Patient was lifting a very heavy bed when he felt a severe pop in his right elbow and shoulder and noted the acute onset of severe right elbow weakness. His evaluated in the emergency room and referred to clinic where his exam suggested a distal biceps rupture. MRI scan confirmed a distal biceps rupture is brought the operating room for repair was indicated. It is noted that he does have some component preoperative numbness in his right arm and hand and he says that he has chronic problems with carpal tunnel syndrome. Surgeon: Jenny Sellers [employer] Specialist: Shukri Morris Anesthesia Type: General Operative Notes Findings: Complex right biceps injury with partial tear and delamination of the biceps tendon proximal to the elbow, partial-thickness about 50% of the insertion of the biceps into the radial tuberosity, tear of the lacertus Closure Type: primary Specimen(s): none sent Prosthetic devices, grafts, tissues, transplants, or devices: Arthrex Endobutton Estimated Blood Loss (mL): 100 Tourniquet time (min): 92 Procedure in detail: Patient was brought to the operating room and underwent the induction of a general anesthesia. His right upper extremities prepped draped standard sterile fashion. Time-out was performed antibiotics were given. High arm tourniquet was applied and put on sterilely. An incision was made about 3 cm distal to the antecubital fossa. A transverse incision dissection was carried out through skin subcutaneous tissues. He did have significant venous distension of his veins. They were gently mobilized and several of the small branches were cauterized. The biceps tendon was identified. An incision was made over the fascia of the biceps tendon. There was some obvious tearing of the muscle fibers of the biceps tendon with some delamination of the tendon proximally. There was a portion of the biceps tendon which did extend distally and actually was tracking down to the patient's insertion site. The tendon was meticulously examined. I then used a FiberWire stitch and wove it thru the meticulously through the tendon and down along the distal stump. Dissection was carried out down deep into the antecubital fossa along the biceps tendon a portion of it was on inserting still into the radial tuberosity. I was able to mobilize the specifically put multiple retractors around the radial tuberosity and then used a combination of periosteal elevator as well as a curette to slightly freshened the radial tuberosity. A drill hole for an Endo button was passed bicortically and then a small Reamer was used appeared to smaller than traditional Reamer in order to allow an the torn portion of the tendon to be reinserted, but also preserve the portion of the tendon that was still intact. It did not appear that the entire tendon should be detached and the entire tendon reinserted as there was some structural integrity to the tendon insertion along the biceps tuberosity and also the dissection had confirmed that the injury was at multiple levels including delamination of the tendon proximally and some tearing of the underlying biceps muscle. The Reamer was used to ream into the biceps bicipital tuberosity and The Endobutton was then passed and flipped after the sutures had been woven into it. The tendon was then progressively tightened down into the into the groove especially the torn portion of the tendon. I could see the tendon being pulled distally and I used my pickups to push portion of the tendon into the biceps tuberosity. The Michelle sutures was then passed back through the tendon. The wound was meticulously irrigated with normal saline the tendon was carefully tied. Then used x-rays with the mini C-arm AP and lateral to make sure that it had been adequately repaired and the button had been adequately flipped. Patient's range of motion he had full pronation full supination there was appropriate tension in the biceps I could bring him to near full extension but I did not specifically excessively test the repair. And there was good tension in the tendon. Wound was irrigated with normal saline and closed with interrupted Vicryl and Steri- Strips. Patient was placed in a long-arm splint with his elbow at 90?. Marcaine was injected. Complications: none Post-operative Condition: stable Disposition: Acute Care Plan for aftercare: Splint times 10 days and then right elbow [id number] brace he can do full pronation full supination and should put a block on the terminal 30? of extension but allow full flexion no heavy lifting.
[2020-01-09] MEDS: CEFAZOLIN 2 GM/100 ML FROZ.PIGGY IV (15:30)
--- NOTE | 2020-01-09 15:57 | SUR.OPER ---
Supine on padded OR bed, head on pillow, left arm secured on padded arm board at <90 degrees abduction, right arm on hand table, legs uncrossed, safety belt at thigh, tape over blanket over lower legs.
[2020-01-09] MEDS: BUPIVACAINE 0.5% (PF) VIAL 30 ML INJ (16:04)
[2020-01-09] MEDS: HYDROMORPHONE 2 MG INJ IV ×4 (17:58→18:15)
[2020-01-09] MEDS: OXYCODONE/ACETAMINOPHEN 5/325 TABLET 1 TAB PO (18:27)
== END 2020-01-09 18:56 | disposition home or self-care (01) ==
PROVIDERS: PCP Internal Medicine; Referring Provider Orthopaedic Surgery; Visit Provider Orthopaedic Surgery
PROC: (CPT 24341; principal; 2020-01-09 15:00)
DX: S46.211A Strain of muscle, fascia and tendon of other parts of biceps, right arm, initial encounter (principal); X50.0XXA Overexertion from strenuous movement or load, initial encounter; Y93.89 Activity, other specified; Y92.9 Unspecified place or not applicable; Z86.711 Personal history of pulmonary embolism
CPT/HCPCS: 24341; J0690; J1100; J1170; J1885; J2250; J2405; J2704; J3010

== ENCOUNTER 2020-03-03 17:52 | Emergency (ER) | payer OTHER, MEDICAID, SELFPAY ==
[2019-03-24 14:23] VITALS: BMI 25.0
[2020-03-03 17:58] VITALS: BP 140/79; PULSE 74; RESP 14; TEMP 36.6; O2SAT 98
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
--- NOTE | 2020-03-03 18:46 | PC.NURSE ---
Patient states that he had a biceps repair in Dec of this year and has not seen PT for this. He states that he takes 3,000 mg of APAP per day and also take ibuprophen but is concerned that he is doing damage to his stomach with all the pills. He complains of pain in his forearm near the tenodesis incision but that has been present since the procedure was done. He stated that he is taking alprazolam and clonazepam PRN for anxiety. He says that his main concern today is his porterolateral shoulder pain during abduction, and rotation. He is limited in flexion of his forearm.
== END 2020-03-03 19:02 | disposition home or self-care (01) ==
PROVIDERS: Emergency Provider Emergency Medicine; PCP Internal Medicine
DX: S40.011A Contusion of right shoulder, initial encounter (principal); S43.401A Unspecified sprain of right shoulder joint, initial encounter; W22.8XXA Striking against or struck by other objects, initial encounter
CPT/HCPCS: 73030; 99283

== ENCOUNTER 2020-05-14 22:59 | Emergency (ER) | payer OTHER, MEDICAID, SELFPAY ==
[2019-03-24 14:23] VITALS: BMI 25.0
[2020-05-14 23:10] VITALS: BP 144/83; PULSE 95; RESP 14; TEMP 36.9; O2SAT 98; BMI 26.9
--- NOTE | 2020-05-14 23:18 | ED_ITS ---
HPI - Extremity Problem General Chief complaint: Extremity Problem,Nontraumatic Stated complaint: right upper arm issues Time Seen by Provider: 05/14/20 23:00 Source: patient Mode of arrival: Ambulatory Limitations: no limitations History of Present Illness HPI Narrative: Patient is a 44-year-old male here for evaluation of right upper arm pain. He has been seen multiple times in the past by his primary doctor, t his emergency department in orthopedics regarding his right upper arm. It seems that all the symptoms started after he sustained a biceps tendon rupture which she had surgically repaired earlier this year. Has been seen here in the emergency department a couple times since then for the various injury/pain to his right upper extremity. He has also seen by his primary doctor who states that her is little that the primary provider can do regarding his situation and treatment was deferred to the orthopedis. Patient states he did recently sees orthopedic provider who started him on gabapentin. He states that he has been taking it. He states he continues have pain in his right upper arm. He denies any fevers. No new trauma. Came in this evening for evaluation. Related Data Previous Rx's Medication Instructions Recorded methimazole 5 mg tablet 5 mg PO DAILY #90 tab 05/13/19 alprazolam 1 mg tablet 1 - 2 mg PO TID PRN #90 tab 04/26/20 clonazepam 0.5 mg tablet 1 mg PO BID #120 tab 04/26/20 Allergies Allergy/AdvReac Type Severity Reaction Status Date / Time No Known Drug Allergies Allergy Verified 05/14/20 23:10 Review of Systems Constitutional Constitutional: Denies fever(s) and Denies headache(s) ENT Ears, Nose, Mouth, and Throat: Denies headache(s) Cardiovascular Cardiovascular: Denies chest pain and Denies dyspnea Respiratory Respiratory: Denies dyspnea Gastrointestinal Gastrointestinal: Denies abdominal pain Musculoskeletal Musculoskeletal: Denies tingling Comments: Right upper arm pain Integumentary/Breasts Skin/Breast: Denies lesions and Denies rash Neurologic Neurologic: Denies headache(s) and Denies tingling Hematologic/Lymphatic Hematologic/Lymphatic: Denies easy bleeding and Denies easy bruising Patient History Medical History (Updated 05/14/20 @ 23:20 by Sajan Johnson DO) Generalized anxiety disorder (Chronic 04/24/16) History of pulmonary embolism (Inactive 04/24/16) Hyperthyroidism (Chronic 07/31/17) Insomnia (Chronic) Lower back pain (Chronic) Surgical History No significant past surgical history (Acute) Social History household members: significant other Smoking Status: Current every day smoker alcohol intake: current Smoking Status: Current every day smoker alcohol intake frequency: holidays/special occasions only Substance Use Type: does not use Exam Initial Vital Signs Initial Vital Signs: Vital Signs Temperature 98.4 F 05/14/20 23:10 Pulse Rate 95 H 05/14/20 23:10 Respiratory Rate 14 05/14/20 23:10 Blood Pressure 144/83 H 05/14/20 23:10 Pulse Oximetry 98 05/14/20 23:10 Const General: cooperative, healthy appearing and comfortable Cardio Pulses: radial pulses present on the right Skin Lesions: no lesions Rashes: no rashes Neuro Sensory Exam: no sensory deficits noted Extrem Other: Patient with tenderness to palpation around his right elbow and also around the right shoulder however he can flex and extend. Can pronate and supinate. He can also abduct and adduct his right shoulder. Also flex and extend his right shoulder. His right wrist is unremarkable. Course Orders Ordered: Discontinued Medications Ketorolac Tromethamine (Toradol) 30 mg IM NOW ONE Stop: 05/14/20 23:20 Last Admin: 05/14/20 23:25 Dose: 30 mg Documented by: DEEPTHI Vital Signs Vital signs: Vital Signs - 8 hr 05/14/20 23:10 Temperature 98.4 F Pulse Rate 95 H Respiratory Rate 14 Blood Pressure 144/83 H Pulse Oximetry 98 MDM - Extremity (Nontraumatic) MDM Narrative Medical decision making narrative: Patient is neurovascularly intact. He denies any new trauma. I feel that x-rays would be unhelpful given his clinical presentation and his presenting symptoms. Had a discussion with him. I informed him that there is also little that the emergency department can do regarding his symptoms. I did inform him that he did need to talk with his primary provider/orthopedic provider about further workup to include potential physical therapy or the felt like he needed another MRI they could do that as an outpatient. Patient was given Toradol. I feel we should avoid opioid pain medication given the chronicity of his symptoms. Patient was given return precautions. He expressed understanding and agreement. Discharge Plan Departure Patient Disposition: Home Clinical Impression: Chronic pain of right upper extremity Discharge Date/Time: 05/14/20 23:37 Instructions: DI for Chronic Pain -- Adult Activity Restrictions/Additional Instructions: Unfortunately I feel there is little that the emergency department due regarding your discomfort. I have a low suspicion that you have sustained any new injury given your history and physical. I do recommend that you continue your medications as directed. On Sunday contact your orthopedic provider for a follow-up. Return to the emergency department for any new or worsening symptoms Prescriptions: No Action methimazole 5 mg tablet 5 mg PO DAILY Qty: 90 RF: 3 alprazolam 1 mg tablet 1 - 2 mg PO TID PRN (Reason: Anxiety) Qty: 90 RF: 0 clonazepam 0.5 mg tablet 1 mg PO BID Qty: 120 RF: 0 Referrals: Baldemar Chirinos MD [Primary Care Provider] -
[2020-05-14] MEDS: KETOROLAC 60 MG/2 ML VIAL 30 MG IM (23:25)
== END 2020-05-14 23:37 | disposition home or self-care (01) ==
PROVIDERS: Emergency Provider Emergency Medicine; PCP Internal Medicine
DX: M79.621 Pain in right upper arm (principal)
CPT/HCPCS: 96372; 99282; 99283; J1885

== ENCOUNTER → 2020-05-18 17:15 | Outpatient (CLI) | payer OTHER, MEDICAID, SELFPAY ==
[2019-03-24 14:23] VITALS: BMI 25.0
--- NOTE | 2020-05-18 | DI.MRI.S_ITS ---
PROCEDURE: MR SHOULDER RT WO CON INDICATIONS: Right shoulder pain TECHNIQUE: Noncontrast oblique coronal T2 fast spin echo with fat saturation, oblique sagittal T1 spin echo and T2 fast spin echo with fat saturation, axial T1 spin echo and T2 fast spin echo with fat saturation through the shoulder. COMPARISON: [facility], CR, XR SHOULDER RT MIN 2V, 03/03/2020, 17:56. FINDINGS: Image quality: Excellent. Rotator cuff: There is minimal interstitial partial tearing in the distal subscapularis extending to its insertion. The supraspinatus, infraspinatus, and teres minor appear intact. Sagittal images demonstrate no fatty muscle atrophy. Bones and bursae: No bone marrow contusions or fractures. There is moderate acromioclavicular joint degeneration. The acromion demonstrates slight lateral downsloping, without an os acromiale. No pathologic subacromial-subdeltoid bursal fluid is present. Capsule and soft tissues: There is mild tearing along the posterior labrum which is incompletely evaluated in the absence of intra-articular contrast. The glenohumeral ligaments appear intact. The long head of the biceps tendon demonstrates normal location and morphology. The rotator interval appears normal, without fibrosis. The coracohumeral ligament is normal in thickness. IMPRESSION: 1. Tearing of the posterior labrum which is incompletely evaluated in the absence of intra-articular contrast. 2. Minimal interstitial partial tearing in the distal subscapularis tendon. 3. Moderate acromioclavicular joint degeneration with slight lateral downsloping of the acromion. Dictated by: Heber Patricio M.D. on 05/19/2020 at 10:03 Approved by: Heber Patricio M.D. on 05/19/2020 at 10:30
== END ==
PROVIDERS: PCP Internal Medicine; Referring Provider Orthopaedic Surgery; Visit Provider Orthopaedic Surgery
DX: S46.211A Strain of muscle, fascia and tendon of other parts of biceps, right arm, initial encounter (principal); S43.491A Other sprain of right shoulder joint, initial encounter; M25.511 Pain in right shoulder; M19.011 Primary osteoarthritis, right shoulder
CPT/HCPCS: 73221

== ENCOUNTER → 2020-07-30 13:46 | Outpatient (CLI) | payer OTHER, MEDICAID, SELFPAY ==
[2019-03-24 14:23] VITALS: BMI 25.0
[2020-08-01 18:17] LABS: COVID19 Sendout Not Detected (Not Detect)
== END ==
PROVIDERS: PCP Internal Medicine; Visit Provider Nurse Practitioner
DX: Z11.59 Encounter for screening for other viral diseases (principal)
CPT/HCPCS: 87635

== ENCOUNTER 2020-08-02 06:12 | Day surgery (SDC) | payer OTHER, MEDICAID, SELFPAY ==
[2019-03-24 14:23] VITALS: BMI 25.0
[2020-07-29 09:29] VITALS: BMI 25.8
[2020-08-02] VITALS (9 sets, daily range): BP systolic 120–135; BP diastolic 75–91; PULSE 79–103; RESP 10–17; TEMP 36.1–36.5; O2SAT 96–98; BMI 25.0
[2020-08-02] MEDS: LACTATED RINGERS 1,000 ML 42 ML IV ×2 (07:01→08:56)
--- NOTE | 2020-08-02 07:29 | PM.PREOP ---
Pre-operative Note COVID-19 COVID-19 status: Negative Result date/Date tested (Pos, Neg/Pending): 07/30/20 Interval Note History & Physical reviewed/Exam performed by Physician: Yes Changes to H&P: No
[2020-08-02] MEDS: CEFAZOLIN 1 GM/50 ML FROZ.PIGGY IV (07:44)
--- NOTE | 2020-08-02 08:41 | SUR.OPER ---
Lateral on padded OR bed with roberts bag positioner, head on pillow, gel axillary roll in place, bottom leg bent with gel pad under knee to foot, upper leg straight and supported with pillows. Operative arm secured in shoulder positioning suspension device. non-operative arm secured on padded arm board. Safety belt at hip, tape over blanket securing lower legs.
[2020-08-02] MEDS: SODIUM CHLORIDE IRRIG SOLUTION 3,000 ML, EPINEPHrine 1 MG IRR (08:53)
[2020-08-02] MEDS: BUPIVACAINE 0.5% W/ EPI (PF) 30 ML VIAL INJ (08:54)
--- NOTE | 2020-08-02 09:33 | P.OP_ITS ---
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 Right shoulder arthroscopic biceps tenodesis 2. Right shoulder arthroscopic distal clavicle excision 3. Arthroscopic major debridement of superior labrum and subacromial decompression 4. Suprascapular nerve block by surgeon for postoperative pain control Same procedure as scheduled: No Indications: The patient is a 44-year-old gentleman whose had persistent right shoulder pain after prior distal biceps injury. He has failed to improve with nonoperative measures. He has agreed to surgery after discussion the risks benefits and alternatives. Risks discussed included but were not limited to: Failure to improve, stiffness, infection, nerve damage, deep venous thrombosis, pulmonary embolism, stroke, myocardial infarction, permanent paralysis and . Surgeon: Caio English Senior Physician: Josie Weston Click Yes if Unassisted: No Anesthesia Type: General, Peripheral nerve block and Local Operative Notes Findings: 1. Intact glenohumeral cartilage 2. Extensive degenerative fraying of the superior labrum with detachment of the biceps insertion, notable for Tu complex as well 3. Intact glenohumeral ligaments 4. Extensive fraying of the biceps tendon 5. Intact subscapularis 6. Intact supraspinatus 7. Intact infraspinatus 8. Normal axillary pouch 9. Normal rotator cuff from the superior surface 10. Type 2 acromion with inferior osteophytes from the acromioclavicular joint impinging on the rotator cuff 11. Significant osteoarthritic change of the acromioclavicular joint 12. Full range of motion with no evidence of pathologic laxity Closure Type: primary Specimen(s): none sent Prosthetic devices, grafts, tissues, transplants, or devices: One Arthrex 4.75 mm closed loop Swivelock anchor Applied: implant(s) Estimated Blood Loss (mL): 5 Blood products transfused: none Procedure in detail: The patient was seen in the preoperative area where he identified the right shoulder as the operative site and this was marked with my initials. He received preoperative antibiotics was taken to the operating room and placed on the operating room table in a supine position where he underwent induction with general anesthetic. Mccracken onset of satisfactory general anesthesia shoulder was examined with the findings given above. Patient was then repositioned in the left lateral decubitus position with an axillary roll and padding for all pressure points. He was stabilized in this position using the beanbag and adhesive tape. The right arm was prepared for the fingertips to the base the neck with ChloraPrep in the usual fashion draped through sterile drapes. The arm was placed in 10 lb of balanced skin suspension. The subcutaneous landmarks were outlined the skin with a marking pen, portal sites were created for the posterior portal. Diagnostic arthroscopy ensued with result given above. I then brought the arthroscope in the subacromial space to the posterior portal a lateral portal was created for instrumentation. A bursectomy was performed for visualization. A subacromial decompression was performed due to the impingement of the osteophytes under hanging the acromioclavicular joint. The distal 8-10 mm of clavicle was removed due to the arthritis there, an anterior portal was created for this part of the procedure. The arthroscope was then reinserted in the glenohumeral joint. An anterior superior lateral portal was created over the rotator interval and a 6 mm cannula inserted. The anterior portal was used for a 4 mm cannula. A fiber link suture was placed in a loop around the biceps tendon and then used to penetrate the biceps tendon just distal to the loop for fixation. An anchor hole was created in the bicipital groove just as it left the joint. The Swivelock anchor was used to tenodesed the biceps at this point. The damaged section of biceps was then excised. The labrum was then debrided to a stable base. At this point all arthroscopic equipment was removed. A suprascapular nerve block was performed with 10 mL of 0.5% Marcaine as there had been no interscalene block performed by the anesthesiologist. The wounds were closed with 4 0 Monocryl and Steri-Strips. An additional 20 mL of 0.5% Marcaine was injected into the subacromial space and subcutaneous tissues for postoperative pain control. Dressings of sterile 4x4s, and ABD and adhesive dressing were applied followed by sling. The patient was taken to the recovery room in good condition having tolerated the procedure well. Complications: none Post-operative Condition: stable Disposition: PACU Plan for aftercare: The patient will be maintained on a standard subacromial decompression protocol with the modification that he will be allowed to use his biceps to lift no more than 1 lb for 1 month.
[2020-08-02] MEDS: HYDROMORPHONE 2 MG INJ IV ×2 (09:42→09:49)
[2020-08-02] MEDS: OXYCODONE IR 5 MG TABLET PO ×2 (10:02→10:33)
== END 2020-08-02 10:56 | disposition home or self-care (01) ==
PROVIDERS: PCP Internal Medicine; Referring Provider Internal Medicine; Visit Provider Orthopaedic Surgery
PROC: (CPT 29805; principal; 2020-08-02 07:45)
DX: M19.011 Primary osteoarthritis, right shoulder (principal); M75.81 Other shoulder lesions, right shoulder; M75.41 Impingement syndrome of right shoulder; M75.21 Bicipital tendinitis, right shoulder; F17.210 Nicotine dependence, cigarettes, uncomplicated
CPT/HCPCS: 29826; 29824; 29828; J0171; J0330; J1100; J1170; J2405; J2704; J3010

== ENCOUNTER 2021-03-05 13:02 | Emergency (ER) | payer OTHER, MEDICAID, SELFPAY ==
[2019-03-24 14:23] VITALS: BMI 25.0
[2021-03-05] VITALS (12 sets, daily range): BP systolic 135–171; BP diastolic 71–95; PULSE 85–103; RESP 18–22; TEMP 37.3; O2SAT 96–100; BMI 26.2
--- NOTE | 2021-03-05 13:26 | DI.RAD.S_ITS ---
PROCEDURE: XR FINGER LT MIN 2V INDICATIONS: injury to thumb 2 weeks ago after a fall TECHNIQUE: AP hand, 2 views of the thumb acquired. COMPARISON: None. FINDINGS: Bones: No fractures or dislocations. Excrescence along the ulnar aspect of the distal radial diaphysis measuring 0.6 x 0.5 centimeters. There is likely continuation with the underlying medullary cavity. Soft tissues: No suspicious soft tissue calcifications. IMPRESSION: No acute osseous abnormality. 6 millimeter osseous excrescence along the ulnar aspect of the distal radial diaphysis favoring an osteochondroma. If chronic pain overlying this area, consider further evaluation with outpatient MRI. Dictated by: Lonny Gregg D.O. on 03/05/2021 at 13:07 Approved by: Lonny Gregg D.O. on 03/05/2021 at 13:10
--- NOTE | 2021-03-05 13:43 | DI.RAD.S_ITS ---
PROCEDURE: XR CHEST 1V INDICATIONS: chest pain TECHNIQUE: One view of the chest was acquired. COMPARISON: [facility], CR, XR RIBS LEFT WITH PA CHEST, 09/09/2019, 14:08. [facility], CR, CHEST 1 VIEW, 07/30/2017, 6:11. FINDINGS: Surgical changes and devices: Overlying EKG wires. Lungs and pleura: Lungs are clear. No pleural effusions or pneumothorax. Mediastinum: Mediastinal contours appear normal. Heart size is normal. Bones and chest wall: No suspicious bony lesions. Overlying soft tissues appear unremarkable. IMPRESSION: No evidence of an acute cardiopulmonary abnormality. Dictated by: Lonny Gregg D.O. on 03/05/2021 at 13:05 Approved by: Lonny Gregg D.O. on 03/05/2021 at 13:07
[2021-03-05 14:18] LABS: Add Manual Diff / Slide Review NO; Basophils Absolute Auto 100 /uL (0-100); Basophils Percent Auto 0.4 % (0-2); Eosinophils Absolute Auto 0 /uL (0-450); Eosinophils Percent Auto 0.1 % (2-4); Hematocrit 49.7 % (41-53); Hemoglobin 16.7 g/dL (13.5-17.5); Lymphocytes Absolute Auto 1400 /uL (1100-4500); Lymphocytes Percent Auto 10.7 % (25-40); Mean Corpuscular HGB Conc 33.7 % (30-36); Mean Corpuscular Hemoglobin 33.2 PG (26-34); Mean Corpuscular Volume 98.6 fL (80-100); Monocytes Absolute Auto 900 /uL (0-900); Monocytes Percent Auto 7.3 % (3-14); Neutrophils Absolute Auto 10600 /uL (1500-7000); Neutrophils Percent Auto 81.5 % (50-75); Platelet Count 332 X10^3/uL (150-400); Red Blood Cell Count 5.04 X10^6/uL (4.5-5.9); Red Cell Distribution Width 14.5 % (11.6-14.8); White Blood Cell Count 12.9 X10^3/uL (4.5-11.0)
[2021-03-05 14:22] LABS: Prothrombin Time 10.7 SECONDS (10.1-12.7)
[2021-03-05 14:25] LABS: D Dimer 231 ng/mL (<230); PTT Partial Thromboplastin Tim 29 SECONDS (26.4-36.2)
[2021-03-05 14:29] LABS: Alanine Aminotransferase 46 IU/L (<50); Albumin 4.7 g/dL (3.5-5.0); Albumin Globulin Ratio 1.6 (1.0-2.8); Alkaline Phosphatase 72 U/L (38-126); Aspartate Aminotransferase 67 IU/L (17-59); BUN Creatinine Ratio 20.5 (6-22); Bilirubin Total 1.7 mg/dL (0.2-1.3); Blood Urea Nitrogen 16 mg/dL (9-20); Calcium 8.9 mg/dL (8.4-10.2); Carbon Dioxide 21 mmol/L (22-32); Chloride 107 mmol/L (98-107); Creatine Kinase 112 U/L (55-170); Estimated Glomerular Filt Rate > 60.0 mL/min (>60); Glucose 86 mg/dL (70-100); Lipase 86 U/L (23-300); Potassium 4.2 mmol/L (3.4-5.1); Sodium 137 mmol/L (137-145); Total Protein 7.7 g/dL (6.3-8.2)
[2021-03-05 14:38] LABS: Troponin I < 0.012 ng/mL (0.01-0.034)
[2021-03-05 14:44] LABS: CKMB % Relative Index 0.9 % (1.5-5.0); HEMOLYSIS 47 (0-50)
--- NOTE | 2021-03-05 15:33 | ED.EXTPRO ---
HPI - Extremity Problem General Chief complaint: Extremity Problem,Nontraumatic Stated complaint: blood clots? /left thumb broken Time Seen by Provider: 03/05/21 14:06 Source: patient Mode of arrival: Family Vehicle Limitations: no limitations History of Present Illness HPI Narrative: This is a 45-year-old male who comes in with multiple concerns. Patient's states that he believes he has a blood clot in his right upper extremity that may have been there for 1-2 months. He states that the vein feels very prominent in his right upper extremity. Patient also states that he developed chest pain and shortness of breath today. He has not had any syncope. But he has felt mildly lightheaded. He flies quite frequently. Patient states that he had a history of pulmonary embolism. Patient states that he ran out of his Xarelto and had difficulty obtaining a new prescription. Patient did not follow-up with his physician to obtain this. He states that they initially thought his blood clots had been caused by traveling he states he flies quite frequently. Patient had been on warfarin before. Patient also has complaint of discomfort in his left thumb after having a fall and states that he thinks he jammed his thumb. Patient states that he has some difficulty flexing and extending it. He has had some numbness but he describes this in being all his extremities on and off. He does not appreciate any clear weakness. Patient states that he takes clonazepam and was taking medication for hyperthyroidism but states that he was cured and is no longer on his medication. He denies any recent surgeries except for a year ago he had biceps tendon repair and has had his collarbone/shoulder surgery in the past. He does continue to smoke tobacco he does drink alcohol. He occasionally uses marijuana recreationally but denies other illicit drugs. Related Data Home Medications Medication Instructions Recorded Confirmed meloxicam See Rx Instructions .ROUTE .COMPLEX 08/02/20 08/02/20 Previous Rx's Medication Instructions Recorded hydroxyzine pamoate 25 mg PO Q6HR PRN #30 cap 08/02/20 oxycodone 5 mg PO Q4HR PRN #40 tab 08/02/20 methimazole 5 mg tablet 5 mg PO DAILY #90 tab 08/06/20 alprazolam 1 mg tablet 1 - 2 mg PO TID PRN #90 tab 09/14/20 clonazepam 0.5 mg tablet 1 mg PO BID #120 tab 09/14/20 clonazepam 0.5 mg PO DAILY PRN #7 tab 03/05/21 rivaroxaban [Xarelto] 15 mg PO BID #42 tab 03/05/21 Allergies Allergy/AdvReac Type Severity Reaction Status Date / Time No Known Drug Allergies Allergy Verified 03/05/21 13:22 Review of Systems Review of Systems ROS Unobtainable: All systems reviewed & are unremarkable except as noted in HPI and below Patient History Medical History Generalized anxiety disorder (04/24/16) History of pulmonary embolism (04/24/16) Hyperthyroidism (07/31/17) Insomnia Lower back pain Surgical History History of surgery (01/09/20) Social History household members: significant other Smoking Status: Current every day smoker alcohol intake: current Smoking Status: Current every day smoker alcohol intake frequency: holidays/special occasions only Substance Use Type: does not use Exam Narrative Exam Narrative: GENERAL: Alert and oriented x three, thin, well-appearing male in mild distress. HEENT: Head normocephalic, atraumatic, EOMI, pupils reactive, face symmetric, moist mucous membranes NECK: Supple, full range of motion CARDIOVASCULAR: Regular rate and rhythm without murmurs, rubs or gallops. RESPIRATORY: Breath sounds equal bilaterally, no wheezes rales or rhonchi. ABDOMEN: Soft, nontender. Normoactive bowel sounds all 4 quadrants. No guarding or rebound, rigidity, no mass : No CVA tenderness EXTREMITIES: Normal range of motion the right upper extremity, no clubbing or edema. Neurovascularly intact. Patient does have a small ecchymosis on the right forearm. He is more prominent vein on the radial palmar side of the forearm but does not appear hard or indurated. Patient's left has some discomfort with palpation. He is able to flex and extend at the proximal joint he has more difficulty at the distal joint but does have some movement. There is no warmth, erythema or skin changes. There is no obvious deformity. Patient thumbs appear similar bilaterally. NEUROLOGICAL: Cranial nerves II through XII grossly intact. Moving all extremities SKIN: Warm, dry, no petechiae, no rashes or lesions. Initial Vital Signs Initial Vital Signs: Vital Signs Temperature 99.2 F 03/05/21 13:15 Pulse Rate 103 H 03/05/21 13:15 Respiratory Rate 20 03/05/21 13:15 Blood Pressure 171/91 H 03/05/21 13:15 Pulse Oximetry 99 03/05/21 13:15 Scores PERC Score Age greater than or equal to 50 years: No Heart rate greater than or equal to 100 bpm: No Room Air O2 Sat less than 95%: No Unilateral leg swelling: Yes (arm) Recent trauma or surgery: No Hemoptysis: No Prior PE or DVT: Yes Hormone Use: No Total PERC Score: 2 Course Orders Ordered: ED Orders 03/05/21 13:22 EKG-12 Lead Stat 03/05/21 13:26 XR finger LT min 2V Stat 03/05/21 13:43 XR chest 1V Stat 03/05/21 14:05 Complete Blood Count AUTO DIFF Stat Comprehensive Metabolic Panel Stat D Dimer Stat Lipase Stat Magnesium Stat Partial Thromboplastin Time Stat Prothrombin Time INR Stat Troponin & CK Cardiac Panel Stat 03/05/21 15:54 CT angio chest PE protocol Stat US periph venous up extrem rt Stat Discontinued Medications Alprazolam (Alprazolam 0.5 Mg Tablet) 1 mg PO NOW ONE Stop: 03/05/21 16:23 Last Admin: 03/05/21 16:36 Dose: 1 mg Documented by: MARYELLEN Rivaroxaban (Rivaroxaban 10 Mg Tablet) 15 mg PO NOW ONE Stop: 03/05/21 18:09 Last Admin: 03/05/21 18:15 Dose: 15 mg Documented by: MARYELLEN Vital Signs Vital signs: Vital Signs - 8 hr 03/05/21 13:15 03/05/21 13:54 03/05/21 14:00 Temperature 99.2 F Pulse Rate 103 H 91 H 91 H Respiratory Rate 20 18 21 Blood Pressure 171/91 H 160/95 H 152/91 H Pulse Oximetry 99 98 99 03/05/21 14:30 03/05/21 15:00 03/05/21 15:30 Temperature Pulse Rate 92 H 99 H 91 H Respiratory Rate 19 21 Blood Pressure 137/75 135/85 135/71 Pulse Oximetry 96 96 98 03/05/21 16:00 03/05/21 16:30 03/05/21 17:00 Temperature Pulse Rate 93 H 85 92 H Respiratory Rate 21 19 22 Blood Pressure 140/89 Pulse Oximetry 97 98 98 03/05/21 17:30 03/05/21 18:00 03/05/21 18:17 Temperature Pulse Rate 86 98 H 90 Respiratory Rate 20 21 Blood Pressure 142/85 H Pulse Oximetry 100 100 100 MDM - Extremity (Nontraumatic) Lab Data Result diagrams: 03/05/21 14:05 03/05/21 14:05 Labs: Lab Results 03/05/21 03/05/21 03/05/21 Range/Units 14:05 14:05 14:05 WBC 12.9 H (4.5-11.0) X10^3/uL RBC 5.04 (4.5-5.9) X10^6/uL Hgb 16.7 (13.5-17.5) g/dL Hct 49.7 (41-53) % MCV 98.6 (80-100) fL MCH 33.2 (26-34) PG MCHC 33.7 (30-36) % RDW 14.5 (11.6-14.8) % Plt Count 332 (150-400) X10^3/uL Neut % (Auto) 81.5 H (50-75) % Lymph % (Auto) 10.7 L (25-40) % [place] % (Auto) 7.3 (3-14) % Eos % (Auto) 0.1 L (2-4) % Baso % (Auto) 0.4 (0-2) % Neut # (Auto) 77419 H (1535-8912) /uL Lymph # (Auto) 1400 (1735-4204) /uL [place] # (Auto) 900 (0-900) /uL Eos # (Auto) 0 (0-450) /uL Baso # (Auto) 100 (0-100) /uL PT 10.7 (10.1-12.7) SECONDS INR 1.0 (0.9-1.3) APTT 29 (26.4-36.2) SECONDS D-Dimer 231 H (<230) ng/mL Sodium 137 (137-145) mmol/L Potassium 4.2 (3.4-5.1) mmol/L Chloride 107 (98-107) mmol/L Carbon Dioxide 21 L (22-32) mmol/L BUN 16 (9-20) mg/dL Creatinine 0.78 (0.66-1.25) mg/dL Estimated GFR > 60.0 (>60) mL/min BUN/Creatinine Ratio 20.5 (6-22) Glucose 86 (70-100) mg/dL Calcium 8.9 (8.4-10.2) mg/dL Magnesium 2.0 (1.6-2.3) mg/dL Total Bilirubin 1.7 H (0.2-1.3) mg/dL AST 67 H (17-59) IU/L ALT 46 (<50) IU/L Alkaline Phosphatase 72 (38-126) U/L Total Creatine Kinase 112 (55-170) U/L CK-MB (CK-2) 1.00 (<2.37) ng/mL CK-MB (CK-2) Rel Index 0.9 L (1.5-5.0) % Troponin I < 0.012 (0.01-0.034) ng/mL Total Protein 7.7 (6.3-8.2) g/dL Albumin 4.7 (3.5-5.0) g/dL Globulin 3.0 (1.7-4.1) g/dL Albumin/Globulin Ratio 1.6 (1.0-2.8) Lipase 86 (23-300) U/L Imaging Data Chest x-ray: Radiologist's Impression: BobmatildaJaime gramajo 45 M [address] [id number] ReportSigned Patient: Jaime Amaya [facility]#: [id number]: 1975Acct:[id number]/Sex: 45 / MDate of Service: 03/05/21Loc: EDAccession Number: [id number] Procedure: XR chest 1V Ordering Provider: Jennifer Beach D.O. PROCEDURE: XR CHEST 1V INDICATIONS: chest pain TECHNIQUE: One view of the chest was acquired. COMPARISON: [facility], CR, XR RIBS LEFT WITH PA CHEST, 09/09/2019, 14:08. [facility], CR, CHEST 1 VIEW, 07/30/2017, 6:11. FINDINGS: Surgical changes and devices: Overlying EKG wires. Lungs and pleura: Lungs are clear. No pleural effusions or pneumothorax. Mediastinum: Mediastinal contours appear normal. Heart size is normal. Bones and chest wall: No suspicious bony lesions. Overlying soft tissues appear unremarkable. IMPRESSION: No evidence of an acute cardiopulmonary abnormality. Dictated by: Lonny Gregg D.O. on 03/05/2021 at 13:05 Approved by: Lonny Gregg D.O. on 03/05/2021 at 13:07 Extremity x-ray #1: Radiologist's Impression: [address] [id number] ReportSigned Patient: Jaime Amaya [facility]#: [id number]: 1975Acct:[id number]/Sex: 45 / MDate of Service: 03/05/21Loc: EDAccession Number: [id number] Procedure: XR finger LT min 2V Ordering Provider: Jennifer Beach D.O. PROCEDURE: XR FINGER LT MIN 2V INDICATIONS: injury to thumb 2 weeks ago after a fall TECHNIQUE: AP hand, 2 views of the thumb acquired. COMPARISON: None. FINDINGS: Bones: No fractures or dislocations. Excrescence along the ulnar aspect of the distal radial diaphysis measuring 0.6 x 0.5 centimeters. There is likely continuation with the underlying medullary cavity. Soft tissues: No suspicious soft tissue calcifications. IMPRESSION: No acute osseous abnormality. 6 millimeter osseous excrescence along the ulnar aspect of the distal radial diaphysis favoring an osteochondroma. If chronic pain overlying this area, consider further evaluation with outpatient MRI. Dictated by: Lonny Gregg D.O. on 03/05/2021 at 13:07 Approved by: Lonny Gregg D.O. on 03/05/2021 at 13:10 CT scan - chest: Radiologist's Impression: [address] [id number] Scan ReportSigned Patient: Jaime Amaya MMR#: [id number]: 1975Acct:[id number]/Sex: 45 / MDate of Service: 03/05/21Loc: EDAccession Number: [id number] Procedure: CT angio chest PE protocol Ordering Provider: Jennifer Beach D.O. PROCEDURE: CT ANGIO CHEST PE PROTOCOL INDICATIONS: chest pain, sob, hx PE off meds. TECHNIQUE: After the administration of intravenous contrast, 2 mm thick sections acquired from the pulmonary apices to the posterior costophrenic angles. 3-dimensional maximum intensity projection (MIP) coronal and sagittal reformats were then acquired through the thorax. For radiation dose reduction, the following was used: automated exposure control, adjustment of mA and/or kV according to patient size. COMPARISON: None. FINDINGS: Image quality: Excellent. Pulmonary arteries: Pulmonary arteries are normal in size, and demonstrate no intraluminal filling defects to suggest central pulmonary embolism. Lungs and pleura: Lungs are clear. No pleural effusions or pneumothorax. Central and peripheral airways are patent. Mild basilar atelectasis, right greater than left. Mediastinum: Heart size is normal, without pericardial effusion. No evidence of right heart strain. No mediastinal or hilar adenopathy. Thoracic aorta is normal in caliber and enhancement. Esophagus is normal in caliber, without hiatal hernia. Bones and chest wall: No suspicious bony lesions. Ribs and thoracic spine appear intact throughout. Thyroid gland is unremarkable. No axillary or supraclavicular adenopathy. Abdomen: Visualized upper abdominal solid organs appear normal in the early arterial phase of enhancement. IMPRESSION: No evidence of pulmonary embolus or other acute intrathoracic abnormality. Mild basilar atelectasis. Dictated by: Lonny Gregg D.O. on 03/05/2021 at 15:29 Approved by: Lonny Gregg D.O. on 03/05/2021 at 15:35 US - DVT: Radiologist's Impression: prelim-basilic vein thrombosis. ECG Data Attestation EKG: I personally reviewed and interpreted this ECG as follows: Prior ECG tracings: available for review Interpretation: Sinus tachycardia rate of 102 AL 138, QRS is 78 QTC of 42. Patient has inverted T-wave in lead no ST elevation appreciated. No depression noted. Patient has prior from 03/24/2019 with flat T-wave in 3 an in 11/21/2018 similar T-wave. No other T-wave changes noted. MDM Narrative Medical decision making narrative: This is a 45-year-old male with concern for DVT as well as PE who has a history of prior and has been off his anticoagulant for at least a month or longer. Patient states that his initial emboli were likely related to traveling which he does frequently for work. Patient feels that he has some increased swelling and discomfort in his right forearm as well as some chest pain and shortness of breath and is highly suspicious that he has a pulmonary emboli. His heart rates in the 90s but otherwise normal vital signs. Patient's labs do show a dimer of 1 point over normal at 231. After some discussion decision was made to go ahead and CT the patient although we discussed radiation risks and plan ultrasound his upper extremity as well. Patient also had complaint of injury to his left. There are some chronic appearing changes but no obvious fracture or dislocation. He does have some difficulty with movement and was recommended to follow up with his primary care or orthopedic surgery in consultation/referral was discussed with patient. Discharge Plan Departure Patient Disposition: Home Clinical Impression: Pain of left thumb, Basilic vein thrombosis Activity Restrictions/Additional Instructions: Follow up with your physician for future refills of your anticoagulant. Please avoid any gaps in your medication as you frequently travel and use tobacco as these both increase your risk of blood clots. Take 15mg twice daily x 21 days then start 20mg once daily thereafter. You will need to follow up to get the next prescription for 20mg xarelto. Your x-ray today does not show any fracture or dislocation but does show some chronic appearing changes and I recommend follow-up for further evaluation either with your physician or orthopedic surgery and referral was included. Please return for fevers, passing out, new chest pain, shortness of breath, new weakness, numbness, loss of sensation, persistent vomiting, coughing up blood or other new or concerning symptoms. Prescriptions: New Xarelto 15 mg tablet 15 mg PO BID Qty: 42 RF: 0 clonazepam 0.5 mg tablet 0.5 mg PO DAILY PRN (Reason: anxiety) Qty: 7 RF: 0 No Action methimazole 5 mg tablet 5 mg PO DAILY Qty: 90 RF: 0 alprazolam 1 mg tablet 1 - 2 mg PO TID PRN (Reason: Anxiety) Qty: 90 RF: 0 clonazepam 0.5 mg tablet 1 mg PO BID Qty: 120 RF: 0 meloxicam 7.5 mg Tablet See Rx Instructions .ROUTE .COMPLEX RF: 0 oxycodone 5 mg Tablet 5 mg PO Q4HR PRN (Reason: Pain, Moderate (4-6)) Qty: 40 RF: 0 hydroxyzine pamoate 25 mg Capsule 25 mg PO Q6HR PRN (Reason: Nausea) Qty: 30 RF: 0 Referrals: Baldemar Chirinos MD [Primary Care Provider] - Griffin Pulido MD [Physician] -
--- NOTE | 2021-03-05 15:54 | DI.CT.S_ITS ---
PROCEDURE: CT ANGIO CHEST PE PROTOCOL INDICATIONS: chest pain, sob, hx PE off meds. TECHNIQUE: After the administration of intravenous contrast, 2 mm thick sections acquired from the pulmonary apices to the posterior costophrenic angles. 3-dimensional maximum intensity projection (MIP) coronal and sagittal reformats were then acquired through the thorax. For radiation dose reduction, the following was used: automated exposure control, adjustment of mA and/or kV according to patient size. COMPARISON: None. FINDINGS: Image quality: Excellent. Pulmonary arteries: Pulmonary arteries are normal in size, and demonstrate no intraluminal filling defects to suggest central pulmonary embolism. Lungs and pleura: Lungs are clear. No pleural effusions or pneumothorax. Central and peripheral airways are patent. Mild basilar atelectasis, right greater than left. Mediastinum: Heart size is normal, without pericardial effusion. No evidence of right heart strain. No mediastinal or hilar adenopathy. Thoracic aorta is normal in caliber and enhancement. Esophagus is normal in caliber, without hiatal hernia. Bones and chest wall: No suspicious bony lesions. Ribs and thoracic spine appear intact throughout. Thyroid gland is unremarkable. No axillary or supraclavicular adenopathy. Abdomen: Visualized upper abdominal solid organs appear normal in the early arterial phase of enhancement. IMPRESSION: No evidence of pulmonary embolus or other acute intrathoracic abnormality. Mild basilar atelectasis. Dictated by: Lonny Gregg D.O. on 03/05/2021 at 15:29 Approved by: Lonny Gregg D.O. on 03/05/2021 at 15:35
--- NOTE | 2021-03-05 15:54 | DI.US.S_ITS ---
PROCEDURE: US PERIPH VENOUS UP EXTREM RT INDICATIONS: ?DEEP VEIN THROMBOSIS. HISTORY OF DEEP VEIN THROMBOSIS. TECHNIQUE: Real-time imaging, as well as color and pulse Doppler interrogation, was performed of the right upper extremity deep veins from the inferior neck to the antecubital fossa. COMPARISON: None. FINDINGS: The internal jugular vein, visualized portions of the subclavian vein, axillary, and brachial veins are free of intraluminal thrombus. Where physically possible, the veins are normally compressible. Color and pulse Doppler demonstrate normal intraluminal flow, with expected phasicity and pulsatility. Additional scanning of the cephalic and basilic veins of the superficial system. There is internal echogenicity within the distal basilic vein with incomplete compressibility and color flow. IMPRESSION: Venous thrombosis of the distal basilic vein. Please note that this is a superficial vein. No evidence of thrombosis within the deep venous structures. Dictated by: Lonny Gregg D.O. on 03/05/2021 at 17:13 Approved by: Lonny Gregg D.O. on 03/05/2021 at 17:18
[2021-03-05] MEDS: ALPRAZolam 0.5 MG TABLET 1 MG PO (16:36)
[2021-03-05] MEDS: RIVAROXABAN 10 MG TABLET 15 MG PO (18:15)
== END 2021-03-05 18:24 | disposition home or self-care (01) ==
PROVIDERS: Emergency Provider Emergency Medicine; PCP Internal Medicine
DX: M79.645 Pain in left finger(s) (principal); I82.611 Acute embolism and thrombosis of superficial veins of right upper extremity; R07.9 Chest pain, unspecified; R06.02 Shortness of breath; R20.0 Anesthesia of skin; W19.XXXA Unspecified fall, initial encounter
CPT/HCPCS: 36415; 71045; 71275; 73140; 80053; 82550; 82553; 83690; 83735; 84484; 85025; 85379; 85610; 85730; 93005; 93971; 99284; Q9967

== ENCOUNTER 2021-04-09 13:32 | Emergency (ER) | payer OTHER, MEDICAID, SELFPAY ==
[2019-03-24 14:23] VITALS: BMI 25.0
[2021-04-09 13:54] VITALS: BP 130/74; PULSE 103; RESP 19; TEMP 36.3; O2SAT 99; BMI 26.2
--- NOTE | 2021-04-09 15:15 | ED.WOUNDLAC ---
HPI - Wound/Laceration General Chief Complaint: Wound/Laceration Stated Complaint: Cut Left Pointer Finger Time Seen by Provider: 04/09/21 15:03 Source: patient Mode of arrival: Family Vehicle Limitations: no limitations History of Present Illness HPI narrative: Patient is a 45-year-old male who is up-to-date on immunizations who is here for evaluation of a cut to his left index finger. Patient states he was making lunch for his family earlier today when he gets distracted and cut his finger with a kitchen knife. He did wash it out afterwards. He did use alcohol over it. It was covered with a bandage when he arrived here in the emergency department. Related Data Home Medications Medication Instructions Recorded Confirmed meloxicam See Rx Instructions .ROUTE .COMPLEX 08/02/20 08/02/20 Previous Rx's Medication Instructions Recorded hydroxyzine pamoate 25 mg PO Q6HR PRN #30 cap 08/02/20 oxycodone 5 mg PO Q4HR PRN #40 tab 08/02/20 methimazole 5 mg tablet 5 mg PO DAILY #90 tab 08/06/20 alprazolam 1 mg tablet 1 - 2 mg PO TID PRN #90 tab 09/14/20 clonazepam 0.5 mg tablet 1 mg PO BID #120 tab 09/14/20 clonazepam 0.5 mg PO DAILY PRN #7 tab 03/05/21 rivaroxaban [Xarelto] 15 mg PO BID #42 tab 03/05/21 Allergies Allergy/AdvReac Type Severity Reaction Status Date / Time No Known Drug Allergies Allergy Verified 03/05/21 13:22 Review of Systems Musculoskeletal Comments: Left index finger pain Integumentary/Breasts Comments: Cut to left index finger Neurologic Neurologic: Reports system reviewed and no additional complaints, except as documented Hematologic/Lymphatic On Anticoagulants: No Allergic/Immunologic Allergic/Immunologic: Reports system reviewed and no additional complaints, except as documented Patient History Medical History Generalized anxiety disorder (04/24/16) History of pulmonary embolism (04/24/16) Hyperthyroidism (07/31/17) Insomnia Lower back pain Surgical History History of surgery (01/09/20) Social History household members: significant other Smoking Status: Current every day smoker alcohol intake: current Smoking Status: Current every day smoker alcohol intake frequency: holidays/special occasions only Substance Use Type: does not use Exam Initial Vital Signs Initial Vital Signs: Vital Signs Temperature 97.4 F L 04/09/21 13:54 Pulse Rate 103 H 04/09/21 13:54 Respiratory Rate 19 04/09/21 13:54 Blood Pressure 130/74 04/09/21 13:54 Pulse Oximetry 99 04/09/21 13:54 Const General: cooperative Limitations: mental status not altered HENMT Head: normal to inspection and normocephalic Cardio Pulses: radial pulses present on the left Skin Other: Patient does have an avulsion of the very tip of the left index finger on the radial aspect. It does not involve the nail bed but does involve the tip of the nail. Neuro General: patient alert and patient awake Extrem General: capillary refill normal Psych Appearance: grossly normal and well kempt Course Vital Signs Vital signs: Vital Signs - 8 hr 04/09/21 13:54 Temperature 97.4 F L Pulse Rate 103 H Respiratory Rate 19 Blood Pressure 130/74 Pulse Oximetry 99 MDM - Wound/Laceration MDM Narrative Medical decision making narrative: Unfortunately due to the nature of the injury there is no suturing that can be done here in the ER. A small amount of Gelfoam was placed over the area to stop the bleeding. This was successful and a 4 x 4 and then tube gauze was placed over this for bandage. He is up-to-date on his tetanus. He was given care instructions and return precautions. He expressed understanding and agreement. Discharge Plan Departure Patient Disposition: Home Clinical Impression: Avulsion of skin of finger Instructions: DI for Avulsion Laceration (Not Requiring Sutures) Activity Restrictions/Additional Instructions: I recommend that you leave the bandage at was placed today on your finger for the next 48 hours. After that you can take it off. If the clotting substance that was placed on the tip of your finger comes off at that time that is okay if you can leave it on for another 48 hours that would be ideal. You can take Tylenol/ibuprofen for discomfort. Return to the emergency department for any new or worsening symptoms. Prescriptions: No Action methimazole 5 mg tablet 5 mg PO DAILY Qty: 90 RF: 0 alprazolam 1 mg tablet 1 - 2 mg PO TID PRN (Reason: Anxiety) Qty: 90 RF: 0 clonazepam 0.5 mg tablet 1 mg PO BID Qty: 120 RF: 0 Xarelto 15 mg tablet 15 mg PO BID Qty: 42 RF: 0 clonazepam 0.5 mg tablet 0.5 mg PO DAILY PRN (Reason: anxiety) Qty: 7 RF: 0 meloxicam 7.5 mg Tablet See Rx Instructions .ROUTE .COMPLEX RF: 0 oxycodone 5 mg Tablet 5 mg PO Q4HR PRN (Reason: Pain, Moderate (4-6)) Qty: 40 RF: 0 hydroxyzine pamoate 25 mg Capsule 25 mg PO Q6HR PRN (Reason: Nausea) Qty: 30 RF: 0
== END 2021-04-09 15:44 | disposition home or self-care (01) ==
PROVIDERS: Emergency Provider Emergency Medicine
DX: S61.211A Laceration without foreign body of left index finger without damage to nail, initial encounter (principal); W26.0XXA Contact with knife, initial encounter
CPT/HCPCS: 99281